=== PATIENT | female | born 1935 | race Caucasian/White ===

== ENCOUNTER 2016-12-18 08:39 | Outpatient (RCR) | payer MEDICARE ==
[~2016-12-18 08:39] MED LIST: ASPI-9 PO; COLC0.6T53 PO; POTA99TA21 PO
--- OUTSIDE RECORDS SUMMARY | 2016-12-18 08:47 | XMS REPORT | Continuity of Care Document ---
Author Author [facility] Organization [facility] Address Unknown Phone Unavailable Care Team Providers Care Can Runner Name Role Phone NO, LOCAL PHYSICIAN PCP Unavailable Insurance Providers Payer Name Policy Number Subscriber Name Relationship [employer] [id number] Barbara Richardson 18 Self / Same As Patient Advance Directives Directive Response Recorded Date/Time Advance Directives Yes 11/04/16 4:15pm Health Care Power of Steel Grinder Magdaleno GRANDE ABTS 11/04/16 4:15pm Organ Donor Yes 11/04/16 4:15pm Resuscitation Status DNR-Pt Request 11/04/16 4:15pm Chief Complaint and Reason for Visit Chief Complaint INFLAMMATORY ARTHRITIS Reason for Visit inflamatory arthritis knees Problems Active Problems Medical Problem Onset Date Status inflamatory arthritis knees Unknown Acute Medications Current Home Medications Medication Dose Units Route Directions Days/Qty Instructions Start Date Aspirin/Calcium Carbonate/Mag 325 Mg 325 Mg Oral Daily 11/04/16 Colchicine 0.6 Mg 0.6 Mg Oral Daily 6 11/07/16 Past Home Medications Medication Directions Ordered Status Potassium Gluconate 99 Mg Tablet, 99 Mg Oral Daily 11/06/16 Discontinued Social History Social History Problem Response Recorded Date/Time Alcohol Use Denies Use 11/04/2016 4:15pm Recreational Drug Use No 11/04/2016 4:15pm Recent Foreign Travel No 11/04/2016 4:15pm Recent Infectious Disease Exposure No 11/04/2016 4:15pm Hospitalization with Isolation Denies 11/07/2016 2:59pm Sexually Transmitted Disease No 11/04/2016 4:15pm HIV/AIDS No 11/04/2016 4:15pm Smoking Status Never a Smoker 11/04/2016 4:15pm Recent Hopitalizations No 11/04/2016 4:15pm Sexually Transmitted Disease No 11/04/2016 4:15pm Hospitalization with Isolation Denies 11/07/2016 2:59pm Query Response Start Date Stop Date Smoking Status Never a Smoker Hospital Discharge Instructions Patient Instructions Physician Instructions Patient Instructions/FollowUp: Home health nursing and physical therapy services Ambulate as tolerated Take the colchicine as directed Hematology will schedule you for a visit outpatient at the cancer clinic Patient Problems: Extensive degenerative arthritis/pseudogout bilateral knees Goal: Monitoring arthritis status Return to previous performance status at home [facility] [place], [place] DISCHARGE ORDERS Height (Feet): 5 Height (Inches): 2.00 Weight (Pounds): 143 Weight (Ounces): 5.0 Reason Pt Homebound Acute crystalline arthritis bilateral knees Date of Face to Face: Nov 07, 2016 Discharged To: Home Diagnosis/Conditions Order: Acute bilateral pseudogout knees Monocytosis *I certify that based on my findings, the following services are medically necessary Home Health Services: y Services: Nursing Services, Physical Therapy-Evaluate & Treat My clinical findings support the need for the above services; see Diagnosis. Dicharge Diet: No Restrictions Daily Activity as Tolerated: Yes Pneu Vac Indicated: Yes New, Converted, or Re-newed RX: Transmited to Pharmacy I certify that this patient is under my care and that I, a nurse practitioner or a physician; a office clerk assistant working with me, had a face to face encounter that - meets the physician face to face encounter requirements with this patient as dated. y Care Plan Patient Instructions:: Home health nursing and physical therapy servicesAmbulate as toleratedTake the colchicine as directedHematology will schedule you for a visit outpatient at the cancer clinic Goal:: Monitoring arthritis statusReturn to previous performance status at home Patient Problems: Extensive degenerative arthritis/pseudogout bilateral knees Plan of Care Discharge Date 11/07/16 1:25pm Disposition 06 HOME HEALTH SERVICE Instructions/Education Provided Gout (DC) Prescriptions See Medication Section Referrals (Unspecified) - Reason(s) for Referral: FOLLOW UP WITH DR HICKEY ON Nov AT 2PM. APPT AT 2:30PM [phone] Care Plan and Goals See Discharge Instructions Section Functional Status Query Response Date Recorded Patient Orientation Person Place Time Situation November 07, 2016 11:59am Patient Orientation Person Place Time Situation November 07, 2016 2:59pm Comprehension Ability Understands Concepts November 06, 2016 8:20pm Allergies, Adverse Reactions, Alerts Allergen Type Severity Reaction Status Last Updated Penicillins ([id number]) Allergy Severe HIVES Active 11/04/16 sulfamethoxazole ([id number]) Allergy Severe Active 11/04/16 Trimethoprim Allergy Severe Active 11/04/16 Immunizations Name Given Type FLU TRIvalent 5 years - Adult 11/05/16 Administered Vital Signs Acute Vital Signs Vital Response Date/Time Temperature (Fahrenheit) 98.7 degrees F (97.6 - 99.5) 11/07/2016 2:57pm Temperature (Calculated Celsius) 37.42209 degrees C (36.4 - 37.5) 11/07/2016 8:00am Temperature Source Tympanic 11/07/2016 2:57pm Pulse Rate (adult) 98 bpm (60 - 90) 11/07/2016 2:57pm Respiratory Rate 18 bpm (12 - 24) 11/07/2016 2:57pm O2 Sat by Pulse Oximetry 95 % (88 - 100) 11/07/2016 2:57pm Blood Pressure 150/74 mm Hg 11/07/2016 2:57pm Blood Pressure Mean 99 mm Hg 11/07/2016 8:00am Pain Numeric Pain Scale 0-No Pain 11/07/2016 2:57pm Height (Feet) 5 feet 11/04/2016 4:23pm Height (Inches) 2.00 inches 11/04/2016 4:23pm Height (Calculated Centimeters) 157.749735 cm 11/04/2016 4:23pm Weight (Pounds) 143 pounds 11/04/2016 4:23pm Weight (Ounces) 5.0 oz 11/04/2016 4:23pm Weight (Calculated Grams) 89329.457 gm 11/04/2016 4:23pm Weight (Calculated Kilograms) 65.193975 kilograms 11/04/2016 4:23pm Calculated BMI 26.2 11/04/2016 4:23pm Results Laboratory Results Test Name Result Units Flags Reference Collection Date/Time Result Date/ Time Comments White Blood Count 22.6 10^3/uL H 4.3-11.0 11/04/2016 6:32pm 11/04/2016 6: 43pm Red Blood Count 3.73 10^6/uL L 4.35-5.85 11/04/2016 6:32p 11/04/2016 6: 43pm Hemoglobin 10.9 G/DL L 11.5-16.0 11/04/2016 6:32p 11/04/2016 6:43pm Hematocrit 33 % L 35-52 11/04/2016 6:32p 11/04/2016 6:43pm Mean Corpuscular Volume 90 FL 80-99 11/04/2016 6:32p 11/04/2016 6: 43pm Mean Corpuscular Hemoglobin 29 PG 25-34 11/04/2016 6:32p 11/04/2016 6: 43pm Mean Corpuscular Hemoglobin Concent 33 G/DL 32-36 11/04/2016 6:32p 08/2016 6:43pm Red Cell Distribution Width 16.4 % H 10.0-14.5 11/04/2016 6:32p 2015 6:43pm Platelet Count 112 10^3/uL L 130-400 11/04/2016 6:32p 11/04/2016 6:43pm Mean Platelet Volume 13.0 FL H 7.4-10.4 11/04/2016 6:32p 11/04/2016 6: 43pm Eosinophils (%) (Auto) 0 % 0-10 11/04/2016 6:32p 11/04/2016 6:43pm Basophils (%) (Auto) 0 % 0-10 11/04/2016 6:32p 11/04/2016 6:43pm Eosinophils # (Auto) 0.0 10^3/uL 0.0-0.3 11/04/2016 6:32p 11/04/2016 6 :43pm Basophils # (Auto) 0.0 10^3/uL 0.0-0.1 11/04/2016 6:32pm 11/04/2016 6: 43pm Neutrophils % (Manual) 43 % 11/04/2016 6:32pm 11/04/2016 6:57pm Lymphocytes % (Manual) 13 % 11/04/2016 6:32pm 11/04/2016 6:57pm Monocytes % (Manual) 44 % 11/04/2016 6:32pm 11/04/2016 6:57pm Polychromasia SLIGHT 11/04/2016 6:32p 11/04/2016 6:57pm Hypochromasia MODERATE 11/04/2016 6:32pm 11/04/2016 6:57pm Basophilic Stippling SLIGHT 11/04/2016 6:32pm 11/04/2016 6:57pm Macrocytosis SLIGHT 11/04/2016 6:32pm 11/04/2016 6:57pm Elliptocytes SLIGHT 11/04/2016 6:32pm 11/04/2016 6:57pm Rouleau SLIGHT 11/04/2016 6:32pm 11/04/2016 6:57pm Body Fluid Source SYNOVIAL 11/05/2016 11:28am 11/05/2016 12:40pm Body Fluid Color YELLOW 11/05/2016 11:28am 11/05/2016 12:40pm Body Fluid Appearance CLOUDY AND VISCOUS 11/05/2016 11:28am 2015 12:40pm Body Fluid WBC [id number] /uL 11/05/2016 11:28am 11/05/2016 3:22pm Body Fluid RBC 750 /uL 11/05/2016 11:28am 11/05/2016 3:22pm Body Fluid Polynuclear WBCs 87 % 11/05/2016 11:28am 11/05/2016 3: 22pm Body Fluid Mononuclear WBCs 1 % 11/05/2016 11:28am 11/05/2016 3:22pm Body Fluid Lymphocytes 7 % 11/05/2016 11:28am 11/05/2016 3:22pm Body Fluid Other Cells 5 % 11/05/2016 11:28am 11/05/2016 3:22pm Body Fluid Crystals CA PYROPHOSPHATE 11/05/2016 11:28am 11/05/2016 12:40pm BODY FLUID SOURCE LEFT KNEE ASPIRATE. VERY FEW SMALL AND BLUNT CRYSTALS OBSERVED. URIC ACID CRYSTALS ARE FOUND IN GOUT. CALCIUM PYROPHOSPHATE DIHYDRATE CRYSTALS ARE FOUND IN PSEUDOGOUT. Anti-Double Strand DNA Antibody 92 IU/mL 0-300 11/04/2016 6:32pm 2015 7:52am ANTI DOUBLESTRANDED DNA-EIA Index Value Units Interpretation 0-200 IU/mL Normal 201-300 IU/mL Equivocal >/=301 IU/mL High Test performed at [facility], CLIA# [id number] [facility] [place] [address] Anti-DNA Antibody Interpretation SEE FOOTNOTE 11/04/2016 6:32pm 08/2016 6:38pm Microbiology Results Procedure Source Result Collection Date/Time Result Date/Time Anaerobic Culture Body Fluid, Synovial Fluid No growth 11/05/2016 11:40am 11/07/2016 2:01pm Body Fluid Culture Synovial Fluid No growth 11/05/2016 11:20am 11/06/2016 7:36am Anaerobic Culture Body Fluid, Synovial Fluid No growth 11/05/2016 11:20am 11/07/2016 2:00pm Procedures No known history of procedures. Encounters Encounter Location Arrival/Admit Date Discharge/Depart Date Attending Provider Discharged Inpatient (obs) [facility] 11/04/16 3:20pm 1:25pm JAMES PEDROZA MD Recent Diagnosis inflamatory arthritis knees
[2016-12-18 09:20] LABS: BASOPHILS % (AUTO) 0 % (0-10); EOSINOPHILS % (AUTO) 0 % (0-10); LYMPHOCYTES # (AUTO) 2.2 X 10^3 (1.0-4.0); LYMPHOCYTES % (AUTO) 44 % (12-44); MEAN CORPUSCULAR HEMOGLOBIN 29 PG (25-34); MEAN CORPUSCULAR HGB CONC 32 G/DL (32-36); MEAN CORPUSCULAR VOLUME 91 FL (80-99); MEAN PLATELET VOLUME 11.7 FL (7.4-10.4); MONOCYTES # (AUTO) 1.5 X 10^3 (0.0-1.0); MONOCYTES % (AUTO) 30 % (0-12); NEUTROPHILS # (AUTO) 1.3 X 10^3 (1.8-7.8); NEUTROPHILS % (AUTO) 26 % (42-75); PLATELET COUNT 124 10^3/uL (130-400); RED BLOOD COUNT 4.13 10^6/uL (4.35-5.85)
[2016-12-18 09:52] LABS: ALANINE AMINOTRANSFERASE 9 U/L (0-55); ALBUMIN 4.4 G/DL (3.2-4.5); ANION GAP 12 MMOL/L (5-14); ASPARTATE AMINO TRANSFERASE 17 U/L (5-34); BILIRUBIN,TOTAL 0.4 MG/DL (0.1-1.0); BLOOD UREA NITROGEN 12 MG/DL (7-18); BUN/CREATININE RATIO 18; CALCIUM 9.5 MG/DL (8.5-10.1); CARBON DIOXIDE 21 MMOL/L (21-32); CHLORIDE 107 MMOL/L (98-107); CREATININE SERUM 0.65 MG/DL (0.60-1.30); GFR ESTIMATED > 60; GLUCOSE 75 MG/DL (70-105); POTASSIUM 3.9 MMOL/L (3.6-5.0); SODIUM 140 MMOL/L (135-145); TOTAL PROTEIN 7.7 G/DL (6.4-8.2)
== END 2017-03-18 | disposition home or self-care (01) ==
LOC: ONC 08:39
PROVIDERS: ATTEND Internal Medicine Hematology & Oncology
DX: D72.829 Elevated white blood cell count, unspecified (principal); D69.6 Thrombocytopenia, unspecified; D64.9 Anemia, unspecified
CPT/HCPCS: 36415; 80053; 85025; 99214

== ENCOUNTER 2019-01-07 13:52 | Emergency (ER) | payer MEDICARE ==
[~2019-01-07] VITALS: Ht 154.9 cm; Wt 63.5 kg
[2019-01-07] MEDS ORDERED: TRAM50TA2 (14:19)
[2019-01-07] MEDS ORDERED: fentaNYL INJECTION 100 MCG/2 ML AMP IVP ONE (15:00)
[2019-01-07] MEDS ORDERED: ONDANSETRON 4 MG/2 ML (SDV) Z0FRAN IVP ONE (15:00)
--- NOTE | 2019-01-07 15:37 | ED Trauma-Multisystem ---
General Chief Complaint: Trauma-Non Activation Stated Complaint: FALL Nursing Triage Note: pt presents to ed with complaints of fall backwards on Sunday at her house. pt reprots she did not see anyone for the fall until today because she is not getting better. pt has hematoma to back of head and complains of back pain. pt reports she took a tramadol at 0730 this am, and has had nausea since. pt reports she has not had a bm x 2 days and took a laxitive last night but has not had any results. Source of Information: Patient, Family Exam Limitations: No Limitations History of Present Illness Date Seen by Provider: Jan 07, 2019 Time Seen by Provider: 14:49 Initial Comments 83-year-old female who is brought to the emergency room by her daughter for complaints of low back pain and hematoma to her scalp. She reports that 2 days ago she tripped while feeding her cat and fell backwards landing on her back and striking her head on the floor. She reports that she has had increasing pain in her low back and is not improving with pain. Location Injury Occurred: home residence Allergies and Home Medications Allergies Coded Allergies: Penicillins (Verified Allergy, Severe, HIVES, 11/04/16) sulfamethoxazole (Verified Allergy, Severe, 11/04/16) SEIZURE trimethoprim (Verified Allergy, Severe, 11/04/16) SEIZURE Past Lpwwnnl-Gpiooh-Fxazvd Hx Patient Social History Alcohol Use: Denies Use Recreational Drug Use: No Smoking Status: Never a Smoker Recent Foreign Travel: No Contact w/Someone Who Travel: No Recent Infectious Disease Expo: No Recent Hopitalizations: No Physical Abuse: No Sexual Abuse: No Mistreated: No Fear: No Immunizations Up To Date Tetanus Booster (TDap): Unknown PED Vaccines UTD: Yes Seasonal Allergies Seasonal Allergies: No Past Medical History Surgeries: Yes (back, ex lap, ) Appendectomy, Hysterectomy, Tubal Ligation Respiratory: No Currently Using CPAP: No Currently Using BIPAP: No Cardiac: Yes (DID NOT KNOW SHE HAD A VT-DR TOLD HER AFTER SOME TEST) Heart Attack Neurological: No Reproductive Disorders: No Female Reproductive Disorders: Denies Sexually Transmitted Disease: No HIV/AIDS: No Genitourinary: No Gastrointestinal: No Musculoskeletal: Yes (KNEE PAIN) Gout Endocrine: Yes Lupus Loss of Vision: Denies Hearing Impairment: Hard of Hearing Cancer: No Psychosocial: No Integumentary: No Blood Disorders: No Adverse Reaction/Blood Tranf: No Family Medical History Asthma 19 FATHER Diabetes mellitus 19 FATHER 19 MOTHER G8 SISTER Hypertension 19 MOTHER Myocardial infarction 19 FATHER ( AT 62 FROM [place]) Neoplasm 19 MOTHER (BREAST CANCER WITH MASTECTOMY) Physical Exam Vital Signs Vital Signs - First Documented 01/07/19 14:09 Temp 97.3 Pulse 93 Resp 16 B/P (MAP) 177/92 (120) Pulse Ox 93 Height, Weight, BMI Height: 5'1.00" Weight: 140lbs. 5.0oz. 63.877238hr; 26.2 BMI Method:Stated Progress/Results/Core Measures Results/Orders My Orders Orders - JOEY WILSON Ct Head Wo (01/07/19 14:49) Ct Lumbar Spine Wo (01/07/19 14:49) Fentanyl Injection (Sublimaze Injection (01/07/19 15:00) Ondansetron Injection (Zofran Injectio (01/07/19 15:00) Medications Given in ED Current Medications Medications Dose Ordered Sig/Iris Route Start Time Stop Time Status Last Admin Dose Admin Fentanyl Citrate 25 mcg ONCE ONCE IVP 01/07/19 15:00 01/07/19 15:01 DC 01/07/19 15:03 25 MCG Ondansetron HCl 4 mg ONCE ONCE IVP 01/07/19 15:00 01/07/19 15:01 DC 01/07/19 15:03 4 MG Vital Signs/I&O 01/07/19 14:09 Temp 97.3 Pulse 93 Resp 16 B/P (MAP) 177/92 (120) Pulse Ox 93 Blood Pressure Mean: 120 Departure Impression Primary Impression: Compression fracture of T12 vertebra Disposition: HOME, SELF-CARE Condition: Stable/Unchanged Departure-Patient Inst. Decision time for Depature: 16:38 Referrals: ODILON DURAN WEN-CHOU MD (PCP/Family) Primary Care Physician Patient Instructions: LOCAL PHYSICIAN LIST, Vertebral Compression Fracture (DC) Add. Discharge Instructions: Take medications as directed. Call tomorrow morning for an appointment time with an orthopedic surgeon or your primary care provider for further evaluation of your fractures. Return back to the emergency room for worsening symptoms or concerns as needed. All discharge instructions reviewed with patient and/or family. Voiced understanding. Scripts Hydrocodone Bit/Acetaminophen (Hydrocodone/Acetaminophen 5/325mg Tablet) 1 Tab Tab 1 EACH PO Q4-6HR PRN for PAIN-MODERATE MDD 10, #14 TAB Prov: JOEY WILSON 01/07/19 JOEY WILSON Jan 07, 2019 15:37
--- NOTE | 2019-01-07 15:51 | Diagnostic Imaging Report ---
PROCEDURE: CT head without contrast. TECHNIQUE: Multiple contiguous axial images were obtained through the brain without the use of intravenous contrast. INDICATION: Fall with head injury. FINDINGS: Ventricles and sulci are diffusely prominent; however, no hemorrhage is identified. There is no geographic low density seen to indicate territorial infarct. Calvarium is intact and the visualized paranasal sinuses are clear. IMPRESSION: Mild involutional findings of the brain without CT evidence of acute intracranial abnormality. Dictated by: Dictated on workstation # [id number]
--- NOTE | 2019-01-07 16:01 | Diagnostic Imaging Report ---
PROCEDURE: CT lumbar spine without contrast. TECHNIQUE: Multiple contiguous axial images were obtained through the lumbar spine without the use of intravenous contrast. Sagittal and coronal reformations were then performed. INDICATION: Fall, low back pain. COMPARISON: None. FINDINGS: There is an acute fracture along the inferior endplate of the T12 vertebral body. Irregularity along the superior endplate of T12 appears to be chronic. Acute fracture extend to the posterior cortex, with approximately 3 mm of retropulsion. There is approximately 30% height loss of the anterior T12 vertebral body. The remaining vertebral bodies in the lumbar spine appear normal with no height loss. There are marked degenerative changes at L1-L2 and L2-L3 and L5-S1. There is left convex curvature of the lumbar spine centered at L4, with leftward translation of L4 on L5. There is facet arthropathy in the lumbar spine, with degenerative changes at the interface of the L3-L4 interspinous processes. No bony fragments or hyperdense fluid collections are seen in the spinal canal. There is spinal canal narrowing at L2-L3 and L3-L4 on the right. There is moderate foraminal stenosis on the left at L5-S1. There is atrophy of the musculature about the lumbar spine. IMPRESSION: 1. Compression fracture along the inferior endplate of T12 with 3 mm of retropulsion. There is moderate height loss at T12. 2. 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 Dictated by: Dictated on workstation # [id number]
[2019-01-07] MEDS ORDERED: ACHD5005 PO (16:41)
[2019-01-07 17:02] VITALS: BP 164/86
== END 2019-01-07 16:54 | disposition home or self-care (01) ==
LOC: EDUNIT# 13:52 → ER 13:53
DX: S22.080A Wedge compression fracture of T11-T12 vertebra, initial encounter for closed fracture (principal); I25.2 Old myocardial infarction; M10.9 Gout, unspecified; M32.9 Systemic lupus erythematosus, unspecified; Z88.0 Allergy status to penicillin; Z88.2 Allergy status to sulfonamides; Z88.8 Allergy status to other drugs, medicaments and biological substances; Z82.49 Family history of ischemic heart disease and other diseases of the circulatory system; Z80.3 Family history of malignant neoplasm of breast; Z90.49 Acquired absence of other specified parts of digestive tract; Z90.710 Acquired absence of both cervix and uterus; Z98.51 Tubal ligation status; W01.198A Fall on same level from slipping, tripping and stumbling with subsequent striking against other object, initial encounter
CPT/HCPCS: 70450; 72131

== ENCOUNTER 2019-01-23 10:06 | Inpatient (IN) | payer MEDICARE ==
[~2019-01-23] VITALS: Ht 154.9 cm; Wt 59.4 kg
[~2019-01-23 10:06] MED LIST changes: +ACHD5005 PO; +TRAM50TA2
[2019-01-23 10:36] LABS: BASOPHILS % (AUTO) 0 % (0-10); EOSINOPHILS % (AUTO) 0 % (0-10); HEMATOCRIT 45 % (35-52); LYMPHOCYTES # (AUTO) 2.5 X 10^3 (1.0-4.0); LYMPHOCYTES % (AUTO) 13 % (12-44); MEAN CORPUSCULAR HEMOGLOBIN 24 PG (25-34); MEAN CORPUSCULAR HGB CONC 32 G/DL (32-36); MEAN CORPUSCULAR VOLUME 76 FL (80-99); MEAN PLATELET VOLUME 10.9 FL (7.4-10.4); MONOCYTES # (AUTO) 7.5 X 10^3 (0.0-1.0); MONOCYTES % (AUTO) 39 % (0-12); NEUTROPHILS # (AUTO) 9.2 X 10^3 (1.8-7.8); NEUTROPHILS % (AUTO) 48 % (42-75); PLATELET COUNT 400 10^3/uL (130-400); RED CELL DISTRIBUTION WIDTH 20.2 % (10.0-14.5); WHITE BLOOD COUNT 19.3 10^3/uL (4.3-11.0)
[2019-01-23 10:36] LABS: BILIRUBIN,URINE NEGATIVE (NEGATIVE); CLARITY,URINE SLIGHTLY CLOUDY; COLOR,URINE YELLOW; GLUCOSE, URINE (UA) NEGATIVE (NEGATIVE); KETONES,URINE 1+ (NEGATIVE); LEUKOCYTE ESTERASE ,URINE 3+ (NEGATIVE); NITRITE,URINE POSITIVE (NEGATIVE); PH,URINE 7 (5-9); PROTEIN,URINE 3+ (NEGATIVE); UROBILINOGEN,URINE NORMAL (NORMAL)
[2019-01-23 10:44] LABS: BACTERIA,URINE LARGE /HPF; RBC,URINE 0-2 /HPF; SQUAMOUS EPITHELIAL CELL,UR 0-2 /HPF; WBC,URINE >100 /HPF
[2019-01-23 10:57] LABS: ALANINE AMINOTRANSFERASE 14 U/L (0-55); ALKALINE PHOSPHATASE 140 U/L (40-136); BILIRUBIN,TOTAL 0.7 MG/DL (0.1-1.0); BUN/CREATININE RATIO 17; CALCIUM 10.1 MG/DL (8.5-10.1); CARBON DIOXIDE 23 MMOL/L (21-32); CHLORIDE 98 MMOL/L (98-107); CREATININE SERUM 0.69 MG/DL (0.60-1.30); GFR ESTIMATED > 60; GLUCOSE 116 MG/DL (70-105); MAGNESIUM 1.7 MG/DL (1.8-2.4); POTASSIUM 4.1 MMOL/L (3.6-5.0); SODIUM 134 MMOL/L (135-145); TOTAL PROTEIN 8.7 GM/DL (6.4-8.2)
[2019-01-23 11:09] LABS: ANISOCYTOSIS SLIGHT; BAND NEUTROPHILS 10 %; BASOPHILS % (MANUAL) 0 %; EOSINOPHILS % (MANUAL) 1 %; LYMPHOCYTES % (MANUAL) 13 %; MICROCYTOSIS SLIGHT; MONOCYTES % (MANUAL) 30 %; MYELOCYTES % 1 %; NEUTROPHILS % (MANUAL) 45 %
[2019-01-23] MEDS ORDERED: NS IV 1000 ML 1,000 ML IV ONE (11:16)
--- NOTE | 2019-01-23 11:22 | Diagnostic Imaging Report ---
EXAMINATION: Right ankle at 1052h. INDICATION: Fell ankle pain 3 views were obtained. There are no prior studies available for comparison. On the lateral view along the posterior aspect of the talus there is a small thin irregular calcific density. This could represent a minute avulsion fracture. No other fracture or acute bony abnormality is appreciated. The ankle mortise is not widened and the talar dome is smooth. There is a calcaneal spur. The soft tissues are generally unremarkable. IMPRESSION: 1. There is a question of a small avulsion fracture along the posterior aspect of the talus. Clinical follow up is recommended. 2. There is no acute bony abnormality is noted otherwise. Dictated by: Dictated on workstation # [id number]
--- NOTE | 2019-01-23 11:24 | Diagnostic Imaging Report ---
Pelvis at 1040 hours. INDICATION: Fell. A single AP view of the pelvis was obtained. There are no prior studies available for comparison. This exam is less than optimal as the patient is slightly rotated. FINDINGS: There is no fracture, dislocation or acute bony abnormality evident. There is at least moderate degenerative disease of both hip joints. There is mild symmetrical sclerosis of the sacroiliac joints. The soft tissues are unremarkable. There is a fair amount of gas in both large and small bowel. The amount of bowel gas present, however, is less than noted on the prior CT lumbar spine exam of 01/07/2019. IMPRESSION: There is no evidence for an acute bony abnormality. Dictated by: Dictated on workstation # [id number]
--- NOTE | 2019-01-23 11:28 | Diagnostic Imaging Report ---
INDICATION: Fall, pain. FINDINGS: Lateral view demonstrates small joint effusion. There is tricompartmental arthritic changes of the knee with chondrocalcinosis. Dislocation or fracture is not apparent. IMPRESSION: Joint effusion, arthritis, chondrocalcinosis and atherosclerosis. No appreciable fracture deformity. Dictated by: Dictated on workstation # [id number]
--- NOTE | 2019-01-23 11:59 | ED General ---
General Chief Complaint: General Problems/Pain Stated Complaint: L KNEE PAIN;R ANKLE PAIN Nursing Triage Note: pt brought in by [facility] ems with complaint of right ankle pain, left knee pain, and difficulty taking care of herself at home. pt fell a few weeks ago and was diagnosed with compression fraction in her back. Nursing Sepsis Screen: No Definite Risk Source of Information: Patient, EMS, Family, Old Records Exam Limitations: No Limitations History of Present Illness Date Seen by Provider: Jan 23, 2019 Time Seen by Provider: 10:07 Initial Comments Patient presents to emergency room via EMS with gradual decline since having a fall and compression fractures to her back a few weeks ago. She also complains of left knee pain and right ankle pain. Family is no longer able to support her needs at home as she cannot freely ambulate around the house. She was able to ambulate independently with a walker immediately after the fall but has progressively declined since then and has struggled significantly over the last few days. She is afebrile at this time. She had some significant constipation related to hydrocodone use but had some very large bowel movements over the last couple days. Allergies and Home Medications Allergies Coded Allergies: Penicillins (Verified Allergy, Severe, HIVES, 11/04/16) sulfamethoxazole (Verified Allergy, Severe, 11/04/16) SEIZURE trimethoprim (Verified Allergy, Severe, 11/04/16) SEIZURE Home Medications Hydrocodone Bit/Acetaminophen 1 Tab Tab, 1 EACH PO Q4-6HR PRN for PAIN-MODERATE Prescribed by: JOEY WILSON on 01/07/19 1641 Patient Home Medication List Home Medication List Reviewed: Yes Review of Systems Review of Systems Constitutional: see HPI, weakness EENTM: no symptoms reported Respiratory: no symptoms reported Cardiovascular: no symptoms reported Gastrointestinal: see HPI, constipation Genitourinary: frequency : No Musculoskeletal: see HPI Skin: no symptoms reported Psychiatric/Neurological: No Symptoms Reported Hematologic/Lymphatic: No Symptoms Reported Immunological/Allergic: no symptoms reported Past Itpfdoe-Swkbht-Mcmusw Hx Past Med/Social Hx: Reviewed and Corrections made Patient Social History Alcohol Use: Denies Use Recreational Drug Use: No Smoking Status: Never a Smoker Recent Foreign Travel: No Contact w/Someone Who Travel: No Recent Infectious Disease Expo: No Recent Hopitalizations: No Immunizations Up To Date Tetanus Booster (TDap): Unknown PED Vaccines UTD: Yes Seasonal Allergies Seasonal Allergies: No Past Medical History Surgeries: Yes (back, ex lap, ) Appendectomy, Hysterectomy, Tubal Ligation Respiratory: No Currently Using CPAP: No Currently Using BIPAP: No Cardiac: Yes (DID NOT KNOW SHE HAD A [place]-DR TOLD HER AFTER SOME TEST) Heart Attack Neurological: No : No Reproductive Disorders: No Female Reproductive Disorders: Denies Sexually Transmitted Disease: No HIV/AIDS: No Genitourinary: No Gastrointestinal: No Musculoskeletal: Yes (KNEE PAIN) Fractures (compression fractures), Gout Endocrine: Yes Lupus HEENT: No Loss of Vision: Denies Hearing Impairment: Hard of Hearing Cancer: No Psychosocial: No Integumentary: No Blood Disorders: No Adverse Reaction/Blood Tranf: No Family Medical History Asthma 19 FATHER Diabetes mellitus 19 FATHER 19 MOTHER G8 SISTER Hypertension 19 MOTHER Myocardial infarction 19 FATHER ( AT 62 FROM [place]) Neoplasm 19 MOTHER (BREAST CANCER WITH MASTECTOMY) Physical Exam Vital Signs Vital Signs - First Documented 01/23/19 10:10 Pulse 110 Resp 22 B/P (MAP) 180/120 (140) Pulse Ox 97 O2 Delivery Room Air Capillary Refill : Less Than 3 Seconds Height, Weight, BMI Height: 5'2.00" Weight: 135lbs. 0oz. 61.604321eq; 0.0 BMI Method:Stated General Appearance: No Apparent Distress, WD/WN HEENT: PERRL/EOMI, Normal ENT Inspection Neck: Normal Inspection Respiratory: Lungs Clear, Normal Breath Sounds, No Accessory Muscle Use, No Respiratory Distress Cardiovascular: Regular Rate, Rhythm, No Edema, No Murmur Gastrointestinal: Normal Bowel Sounds, Soft, Tenderness (suprapubic) Extremity: Normal Capillary Refill, No Pedal Edema, Other (tenderness over the left knee with a left knee effusion. 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 Norm as Tested Skin: Normal Color, Warm/Dry Focused Exam Lactate Level 01/23/19 11:50: Lactic Acid Level 1.42 Lactic Acid Level Laboratory Tests Test 01/23/19 11:50 Lactic Acid Level 1.42 MMOL/L (0.50-2.00) Progress/Results/Core Measures Suspected Sepsis Recent Fever Within 48 Hours: No Infection Criteria Present: None New/Unexplained Altered Menta: No Sepsis Screen: No Definite Risk SIRS Temperature: Pulse: 110 Respiratory Rate: 22 Laboratory Tests 01/23/19 10:30: White Blood Count 19.3H Blood Pressure 180 /120 Mean: 140 01/23/19 11:50: Lactic Acid Level 1.42 Laboratory Tests 01/23/19 10:30: Creatinine 0.69, Platelet Count 400, Total Bilirubin 0.7 Results/Orders Lab Results Laboratory Tests Test 01/23/19 10:25 01/23/19 10:30 01/23/19 11:50 Range/Units Urine Color YELLOW Urine Clarity SLIGHTLY CLOUDY Urine pH 7 5-9 Urine Specific [place] 1.010 L 1.016-1.022 Urine Protein 3+ H NEGATIVE Urine Glucose (UA) NEGATIVE NEGATIVE Urine Ketones 1+ H NEGATIVE Urine Nitrite POSITIVE H NEGATIVE Urine Bilirubin NEGATIVE NEGATIVE Urine Urobilinogen NORMAL NORMAL MG/DL Urine Leukocyte Esterase 3+ H NEGATIVE Urine RBC (Auto) 3+ H NEGATIVE Urine RBC 0-2 /HPF Urine WBC >100 H /HPF Urine Squamous Epithelial Cells 0-2 /HPF Urine Crystals NONE /LPF Urine Bacteria LARGE H /HPF Urine Casts NONE /LPF Urine Mucus NEGATIVE /LPF Urine Culture Indicated YES White Blood Count 19.3 H 4.3-11.0 10^3/uL Red Blood Count 5.87 H 4.35-5.85 10^6/uL Hemoglobin 14.0 11.5-16.0 G/DL Hematocrit 45 35-52 % Mean Corpuscular Volume 76 L 80-99 FL Mean Corpuscular Hemoglobin 24 L 25-34 PG Mean Corpuscular Hemoglobin Concent 32 32-36 G/DL Red Cell Distribution Width 20.2 H 10.0-14.5 % Platelet Count 400 130-400 10^3/uL Mean Platelet Volume 10.9 H 7.4-10.4 FL Neutrophils (%) (Auto) 48 42-75 % Lymphocytes (%) (Auto) 13 12-44 % Monocytes (%) (Auto) 39 H 0-12 % Eosinophils (%) (Auto) 0 0-10 % Basophils (%) (Auto) 0 0-10 % Neutrophils # (Auto) 9.2 H 1.8-7.8 X 10^3 Lymphocytes # (Auto) 2.5 1.0-4.0 X 10^3 Monocytes # (Auto) 7.5 H 0.0-1.0 X 10^3 Eosinophils # (Auto) 0.0 0.0-0.3 10^3/uL Basophils # (Auto) 0.0 0.0-0.1 10^3/uL Neutrophils % (Manual) 45 % Lymphocytes % (Manual) 13 % Monocytes % (Manual) 30 % Eosinophils % (Manual) 1 % Basophils % (Manual) 0 % Myelocytes % 1 % Band Neutrophils 10 % Anisocytosis SLIGHT Microcytosis SLIGHT Sodium Level 134 L 135-145 MMOL/L Potassium Level 4.1 3.6-5.0 MMOL/L Chloride Level 98 98-107 MMOL/L Carbon Dioxide Level 23 21-32 MMOL/L Anion Gap 13 5-14 MMOL/L Blood Urea Nitrogen 12 7-18 MG/DL Creatinine 0.69 0.60-1.30 MG/DL Estimat Glomerular Filtration Rate > 60 BUN/Creatinine Ratio 17 Glucose Level 116 H 70-105 MG/DL Calcium Level 10.1 8.5-10.1 MG/DL Corrected Calcium 10.1 8.5-10.1 MG/DL Magnesium Level 1.7 L 1.8-2.4 MG/DL Total Bilirubin 0.7 0.1-1.0 MG/DL Aspartate Amino Transf (AST/SGOT) 25 5-34 U/L Alanine Aminotransferase (ALT/SGPT) 14 0-55 U/L Alkaline Phosphatase 140 H 40-136 U/L Total Protein 8.7 H 6.4-8.2 GM/DL Albumin 4.0 3.2-4.5 GM/DL Lactic Acid Level 1.42 0.50-2.00 MMOL/L My Orders Orders - CHIO JAIMES MD Cbc With Automated Diff (01/23/19 10:19) Comprehensive Metabolic Panel (01/23/19 10:19) Magnesium (01/23/19 10:19) Knee, Left, 3 Views (01/23/19 10:19) Ankle, Right, 3 Views (01/23/19 10:19) Saline Lock/Iv-Start (01/23/19 10:19) Ua Culture If Indicated (01/23/19 10:19) Pelvis (01/23/19 10:21) Manual Differential (01/23/19 10:30) Urine Culture (01/23/19 10:25) Saline Lock/Iv-Start (01/23/19 11:16) Ns Iv 1000 Ml (Sodium Chloride 0.9%) (01/23/19 11:16) Blood Culture (01/23/19 11:17) Lactic Acid Analyzer (01/23/19 11:17) Acetaminophen Tablet/Caplet (Tylenol T (01/23/19 12:30) Ceftriaxone For Iv Use (Rocephin For I (01/23/19 12:45) Medications Given in ED Current Medications Medications Dose Ordered Sig/Iris Route Start Time Stop Time Status Last Admin Dose Admin Sodium Chloride 1,000 ml @ 0 mls/hr Q0M ONCE IV 01/23/19 11:16 01/23/19 11:17 DC 01/23/19 11:31 1,000 MLS/HR Vital Signs/I&O 01/23/19 10:10 Pulse 110 Resp 22 B/P (MAP) 180/120 (140) Pulse Ox 97 O2 Delivery Room Air Capillary Refill : Less Than 3 Seconds Blood Pressure Mean: 140 Progress Note : Time: 11:58 Progress Note No significant fractures were found on imaging. There was a questionable avulsion fracture on the right ankle. However, this is a fracture that I do not believe would limit weightbearing. I do not feel patient would tolerate a splint or boot well at this point. Until she is more active, we will simply wrap with an Merritt bandage as needed. Patient was found to have a severe urinary tract infection. She meets sepsis criteria with leukocytosis and tachycardia. 1 L of IV fluid was ordered. Blood cultures and lactic acid were ordered along with a gram of Rocephin. Case was reviewed with Dr. Beckford who agrees with admission. Patient will likely need custodial placement after this admission due to her generalized decline. Social work will be consulted. Diagnostic Imaging Diagonstic Imaging: Xray Plain Films/CT/US/NM/MRI: knee Comments Left knee x-ray viewed by me and report reviewed. See report below: NAME: BART RICHARDSON MED REC#: [id number] PT STATUS: REG ER : 1935 PHYSICIAN: CHIO JAIMES MD ADMIT DATE: 01/23/19/ER Draft Date of Exam:01/23/19 KNEE, LEFT, 3 VIEWS INDICATION: Fall, pain. FINDINGS: Lateral view demonstrates small joint effusion. There is tricompartmental arthritic changes of the knee with chondrocalcinosis. Dislocation or fracture is not apparent. IMPRESSION: Joint effusion, arthritis, chondrocalcinosis and atherosclerosis. No appreciable fracture deformity. Dictated on workstation # [id number] Dict: 01/23/19 1109 Trans: 01/23/19 1127 [id number] Interpreted by: VI ORTIZ Diagonstic Imaging: Xray Plain Films/CT/US/NM/MRI: ankle Comments Right ankle x-ray viewed by me and report reviewed. See report below: NAME: BART RICHARDSON MED REC#: [id number] PT STATUS: REG ER : 1935 PHYSICIAN: CHIO JAIMES MD ADMIT DATE: 01/23/19/ER Draft Date of Exam:01/23/19 ANKLE, RIGHT, 3 VIEWS EXAMINATION: Right ankle at 1052h. INDICATION: Fell ankle pain 3 views were obtained. There are no prior studies available for comparison. On the lateral view along the posterior aspect of the talus there is a small thin irregular calcific density. This could represent a minute avulsion fracture. No other fracture or acute bony abnormality is appreciated. The ankle mortise is not widened and the talar dome is smooth. There is a calcaneal spur. The soft tissues are generally unremarkable. IMPRESSION: There is a question of a small avulsion fracture along the posterior aspect of the talus. Clinical follow up is recommended. 2. There is no acute bony abnormality is noted otherwise. Dictated on workstation # [id number] Dict: 01/23/19 1104 Trans: 01/23/19 1122 [facility] [id number] Interpreted by: ERIN CHAN MD Diagonstic Imaging: Xray Plain Films/CT/US/NM/MRI: pelvis Comments Pelvis x-ray viewed by me and report reviewed. See report below: NAME: BART RICHARDSON MED REC#: [id number] PT STATUS: REG ER : 1935 PHYSICIAN: CHIO JAIMES MD ADMIT DATE: 01/23/19/ER Draft Date of Exam:01/23/19 PELVIS Pelvis at 1040 hours. INDICATION: Fell. A single AP view of the pelvis was obtained. There are no prior studies available for comparison. This exam is less than optimal as the patient is slightly rotated. FINDINGS: There is no fracture, dislocation or acute bony abnormality evident. There is at least moderate degenerative disease of both hip joints. There is mild symmetrical sclerosis of the sacroiliac joints. The soft tissues are unremarkable. There is a fair amount of gas in both large and small bowel. The amount of bowel gas present, however, is less than noted on the prior CT lumbar spine exam of 01/07/2019. IMPRESSION: There is no evidence for an acute bony abnormality. Dictated on workstation # [id number] Dict: 01/23/19 1107 Trans: 01/23/19 1123 [id number] Interpreted by: ERIN CHAN MD Departure Communication (Admissions) Time/Spoke to Admitting Phy: 11:[address] Beckford Impression Primary Impression: Sepsis Qualified Codes: A41.9 - Sepsis, unspecified organism Additional Impressions: Urinary tract infection Qualified Codes: N39.0 - Urinary tract infection, site not specified Generalized weakness Right ankle injury Qualified Codes: S99.911A - Unspecified injury of right ankle, initial encounter Left knee pain Qualified Codes: M25.562 - Pain in left knee Disposition: 01 HOME, SELF-CARE Condition: Improved Admissions Decision to Admit Reason: Admit from ER (General) Decision to Admit/Date: Jan 23, 2019 Time/Decision to Admit Time: 11:15 Departure-Patient Inst. Referrals: SHIV NESBITT MD (PCP/Family) Primary Care Physician CHIO JAIMES MD Jan 23, 2019 11:59
[2019-01-23] MEDS ORDERED: ACETAMINOPHEN 325 MG TABLET PO ONE (12:30)
[2019-01-23] MEDS ORDERED: cefTRIAXone FOR IV USE 1,000 MG in WATER (STERILE) FOR INJECTION 10 ML IV ONE (12:45)
--- NOTE | 2019-01-23 13:15 | NUR ---
BART RICHARDSON admitted to room 426-1, with an admitting diagnosis of UTI, on 01/23/19 from ed via CART, accompanied by STAFF AND DAUGHTERS.BART RICHARDSON introduced to surroundings, call light, bed controls, phone, TV, temperature control, lights, meal times, smoking policy, visitor policy, side rail policy, bathrooms and showers. Patient Rights given to patient in the handbook. BART RICHARDSON verbalizes understanding that [facility] is not responsible for the loss or damage to any personal effects or valuables that are kept in the patients posession during their hospitalization. The following Patient Care Plans were discussed with the : Discharge Planning, PAIN CONTROL,IV FLUIDS, and TESTS AND PROCEDURES. BART RICHARDSON verbalizes understanding of Interdisciplinary Patient Education. Patient and/or family were informed about the Rapid Response Team and its purpose.
[2019-01-23] MEDS: NS IV 1000 ML 1,000 ML IV SCH ×2 (14:09→22:29)
[2019-01-23] MEDS ORDERED: POTA99TA21 PO (14:25)
[2019-01-23] MEDS ORDERED: DOCU-143 PO (14:25)
[2019-01-23] MEDS ORDERED: MAGN400T39 PO (14:25)
[2019-01-23] MEDS ORDERED: TRAM50TA2 PO (14:27)
--- NOTE | 2019-01-23 14:27 | NUR ---
SPOKE WITH THE PATIENT ABOUT HER MEDICATIONS. SHE STATES SHE IS NO LONGER TAKING THE HYDROCODONE, SHE DOES HAVE SOME TRAMADOL ON HAND FROM PREVIOUS FILLS SHE TAKES NEEDED BUT NOT OFTEN. TAKES POTASSIUM, MAGNESIUM, AND A STOOL SOFTENER OTC DAILY.
[2019-01-23] MEDS ORDERED: FLU QUADRIvalent (5+ YOA) 2018-2019 (AFLURIA) 0.5 ML IM ONE (14:30)
--- NOTE | 2019-01-23 14:57 | Physical Therapy Progress Note ---
Therapy Progress Note 1 visit 1440 PT began to assess Pt LEs of patella position and pt had uncontrolled pain with palpation of LLE patella. PT notified Dr. Beckford for further examination. Physical therapy will assess patient tomorrow morning. DERICK REDDING PT Jan 23, 2019 14:57
--- NOTE | 2019-01-23 15:13 | History & Physical-Hospitalist ---
History of Present Illness HPI/Chief Complaint Pt is an 83yoCF with a PMH lupus, CAD, and chronic back pain who presented to the ER with a CC of back pain, knee pain, and weakness. She was seen in the ER on 01/07 after a fall and was found to have a T12 compression fracture. She was discharged home and did relatively well ambulating with a walker until 3 days ago when her mobility worsened. Today she was unable to get out of bed so her daughter called EMS to bring her to the ER for evaluation. She was found to have a UTI and meet sepsis criteria and was admitted for further management. She complains of severe knee pain as well. Source: patient, family Exam Limitations: no limitations Date Seen 01/23/19 Time Seen by a Provider: 16:05 Attending Physician Meagan Beckford MD PCP Nickolas Castillo MD Referring Physician Date of Admission Jan 23, 2019 at 12:07 Home Medications & Allergies Home Medications Reviewed patient Home Medication Reconciliation performed by pharmacy medication reconciliations respiratory therapy technician and/or nursing. Patients Allergies have been reviewed. Allergies Allergies Coded Allergies Penicillins (Verified Allergy, Severe, HIVES, 11/04/16) sulfamethoxazole (Verified Allergy, Severe, 11/04/16) SEIZURE trimethoprim (Verified Allergy, Severe, 11/04/16) SEIZURE Past Uqzwqtl-Jkfqmm-Mdukvq Hx Past Med/Social Hx: Reviewed and Corrections made Patient Social History Alcohol Use: Denies Use Recreational Drug Use: No Smoking Status: Never a Smoker Physical Abuse Screen: No Sexual Abuse: No Recent Foreign Travel: No Contact w/other who traveled: No Recent Hopitalizations: No Recent Infectious Disease Expo: No Immunizations Up To Date Tetanus Booster (TDap): Unknown Pediatric: Yes Seasonal Allergies Seasonal Allergies: Yes Past Medical History Surgeries: Appendectomy, Hysterectomy, Tubal Ligation Currently Using CPAP: No Currently Using BIPAP: No Cardiac: Heart Attack : No Reproductive: No Sexually Transmitted Disease: No HIV/AIDS: No Female Reproductive Disorders: Denies Musculoskeletal: Osteoporosis, Arthritis, Back Injury, Chronic Back Pain, Fractures, Gout Endocrine: Lupus Loss of Vision: Denies Hearing Impairment: Hard of Hearing History of Blood Disorders: No Adverse Reaction to Blood [place]: No Family History Asthma 19 FATHER Diabetes mellitus 19 FATHER 19 MOTHER G8 SISTER Hypertension 19 MOTHER Myocardial infarction 19 FATHER ( AT 62 FROM [place]) Neoplasm 19 MOTHER (BREAST CANCER WITH MASTECTOMY) Review of Systems Constitutional: No chills, No fever EENTM: no symptoms reported Respiratory: no symptoms reported Cardiovascular: no symptoms reported Gastrointestinal: no symptoms reported Genitourinary: dysuria, frequency Musculoskeletal: joint pain Skin: no symptoms reported Psychiatric/Neurological: Denies Paresthesia; Weakness Physical Exam Physical Exam Vital Signs Vital Signs - First Documented 01/23/19 01/23/19 10:10 17:07 Temp 98.2 Pulse 110 Resp 22 B/P (MAP) 180/120 (140) Pulse Ox 97 O2 Delivery Room Air Capillary Refill : Less Than 3 Seconds Height, Weight, BMI Height: 5'2.00" Weight: 135lbs. 0oz. 61.388193tz; 0.0 BMI Method:Stated General Appearance: No Apparent Distress, Chronically ill Respiratory: Lungs Clear, No Accessory Muscle Use, No Respiratory Distress Cardiovascular: Regular Rate, Rhythm, No JVD, No Murmur Gastrointestinal: Normal Bowel Sounds, Non Tender, Soft Genital/Rectal: Other (catheter in place) Extremity: Other (swelling withour erythema around left knee, patella laterally and anteriorly displaced, attempted to move but patient unable to tolerate due to pain) Neurologic/Psychiatric: Alert, Oriented x3 Skin: Normal Color, Warm/Dry Results Results/Procedures Labs Laboratory Tests 01/23/19 10:30 Patient resulted labs reviewed. Imaging: Reviewed Imaging Report Assessment/Plan Admission Diagnosis Sepsis Admission Status: Inpatient Order (span 2 midnights) Reason for Inpatient Admission: IV abx, orhto evaluation of knee Diagnosis/Problems Diagnosis/Problems (1) Sepsis Status: Acute Assessment & Plan: Tachycardia with tachypnea and leukocytosis UA consistent with UTI Continue Rocephin Cultures obtained in ER No lactic acidosis or hypotension- no need for 30cc/kg bolus Qualifiers: Sepsis type: sepsis due to unspecified organism Qualified Codes: A41.9 - Sepsis, unspecified organism (2) Urinary tract infection Status: Acute Assessment & Plan: Abx as above Await cultures Qualifiers: Urinary tract infection type: site unspecified Hematuria presence: without hematuria Qualified Codes: N39.0 - Urinary tract infection, site not specified (3) Left knee pain Status: Acute Assessment & Plan: XR revealed effusions PT expressed concern about patellar dislocation Unable to tolerate much of exam from me but patella displaced Ortho consulted, appreciate recs Discussed with Dr Kate who will see in consultation and recommended MRI of knee MRI Ordered Qualifiers: Chronicity: acute Qualified Codes: M25.562 - Pain in left knee (4) Generalized weakness Status: Acute Assessment & Plan: PT/OT consulted Clinical Quality Measures DVT/VTE Risk/Contraindication: Risk Factor Score Per Nursin RFS Level Per Nursing on Admit: 4+=Very High MEAGAN BECKFORD MD Jan 23, 2019 15:13
--- NOTE | 2019-01-23 15:33 | NUR ---
Met with pt and two daughters after they requested to talk with a licensed master social worker as Dulce one of the daughters is a retired school of nursing director. Daughter reports pt fell about 3 weeks ago and was seen at our Emergency room on the and after her injury was ambulating Ok . Daughter has been staying with her for two weeks and reports her mother has gradually declined to the point that 3 days ago was unable to walk, was reporting inaccurate information with change in mental status,and unable to provide her own care. Daughters are wanting to look at continuing care options as neither daughter is able to provide her 24 hour care. Will follow and assist.
[2019-01-23 17:07] VITALS: BP 142/77
[2019-01-23 19:23] VITALS: BP 158/75
[2019-01-23] MEDS: LACTOBACILLUS ACIDOPHILUS (PROBIOTIC) CAPSULE PO SCH (19:25)
[2019-01-23 19:30] VITALS: BP 165/85
--- NOTE | 2019-01-23 19:38 | NUR ---
DAUGHTER REFUSES SCD' FOR HER MOTHER. DAUGHTER ( DPOA ) ( CHRISTIANE ) STATES HER MOTHER CAN NOT STAND ANYTHING ON HER LEGS.
--- NOTE | 2019-01-23 19:39 | NUR ---
REFUSES A BRACE TO HER LEFT LEG. PT. STATES " IT HURTS WHEN YOU BARELY TOUCH IT. I CAN'T STAND SOMETHING TIGHT ON IT."
[2019-01-24] VITALS (7 sets, daily range): BP systolic 152–177; BP diastolic 72–84
[2019-01-24] MEDS: NS IV 1000 ML 1,000 ML IV SCH ×2 (06:27→21:15)
--- NOTE | 2019-01-24 07:04 | Consultation ---
History of Present Illness History of Present Illness Patient Consulted On(jonathan/time) 01/24/19 07:00 Date Seen by Provider: Jan 24, 2019 Time Seen by Provider: 07:00 Reason for Visit: L knee pain History of Present Illness 83 yr old WF with 4 days of inability to WB LLE. Denies trauma. Denies radiaiton of the pain, which is located mostly over the anterior knee. she has extreme pain with ROM and even light touch. denies fevers chills. denies hx of surgery to the knee Allergies and Home Medications Allergies Coded Allergies: Penicillins (Verified Allergy, Severe, HIVES, 11/04/16) sulfamethoxazole (Verified Allergy, Severe, 11/04/16) SEIZURE trimethoprim (Verified Allergy, Severe, 11/04/16) SEIZURE Home Medications Docusate Sodium 100 Mg Capsule, 100 MG PO DAILY, (Reported) Magnesium Oxide 400 Mg Tablet, 400 MG PO DAILY, (Reported) Potassium Gluconate 99 Mg Tablet, 99 MG PO DAILY, (Reported) Tramadol HCl 50 Mg Tablet, 25 MG PO Q6H PRN for PAIN-MODERATE, (Reported) Patient Home Medication List Home Medication List Reviewed: Yes Past Aruokdm-Otbntj-Olmweu Hx Past Med/Social Hx: Reviewed and Corrections made Patient Social History Alcohol Use: Denies Use Recreational Drug Use: No Smoking Status: Never a Smoker Recent Foreign Travel: No Contact w/Someone Who Travel: No Recent Infectious Disease Expo: No Recent Hopitalizations: No Immunizations Up To Date Tetanus Booster (TDap): Unknown PED Vaccines UTD: Yes Seasonal Allergies Seasonal Allergies: Yes Past Medical History Surgeries: Yes Appendectomy, Hysterectomy, Tubal Ligation Respiratory: No Currently Using CPAP: No Currently Using BIPAP: No Cardiac: Yes (WAS TOLD THIS 2016 ( SHE DIDN'T KNOW ABOUT IT )) Heart Attack Neurological: No : No Reproductive Disorders: No Female Reproductive Disorders: Denies Sexually Transmitted Disease: No HIV/AIDS: No Genitourinary: No Gastrointestinal: No Musculoskeletal: Yes (KNEE PAIN) Osteoporosis, Arthritis, Back Injury, Chronic Back Pain, Fractures, Gout Endocrine: Yes Lupus HEENT: No Loss of Vision: Denies Hearing Impairment: Hard of Hearing Cancer: No Psychosocial: No Integumentary: Yes (RASHES FROM LUPUS) Blood Disorders: No Adverse Reaction/Blood Tranf: No Family Medical History Asthma 19 FATHER Diabetes mellitus 19 FATHER 19 MOTHER G8 SISTER Hypertension 19 MOTHER Myocardial infarction 19 FATHER ( AT 62 FROM [place]) Neoplasm 19 MOTHER (BREAST CANCER WITH MASTECTOMY) Physical Exam-General Problems Physical Exam Vital Signs Vital Signs - First Documented 01/23/19 01/23/19 10:10 17:07 Temp 98.2 Pulse 110 Resp 22 B/P (MAP) 180/120 (140) Pulse Ox 97 O2 Delivery Room Air Capillary Refill : Less Than 3 SecondsLess Than 3 Seconds General Appearance: no apparent distress Extremities: other (L knee: severe pain with ROM, pain with light touch, SILT all dermatomes, no erythema, +warmth, 2/4 DP, PT) Assessment/Plan Assessment/Plan Admission Diagnosis/Plan ASSESSMENT: L knee pain PLAN: need MRI for further eval (this was ordered yesterday) need L Knee brace (this was ordered yesterday) NWB for now DVT prophy per medicine CT LLE to r/o occult fracture ice on/off L knee Admission Status: Inpatient Order (span 2 midnights) Reason for Inpatient Admission: Knee pain, sepsis Clinical Quality Measures DVT/VTE Risk/Contraindication: Risk Factor Score Per Nursin RFS Level Per Nursing on Admit: 4+=Very High ODILON DURAN DO Jan 24, 2019 07:04
[2019-01-24] MEDS: LACTOBACILLUS ACIDOPHILUS (PROBIOTIC) CAPSULE PO SCH ×3 (07:34→17:28)
[2019-01-24] MEDS: ACETAMINOPHEN 325 MG TABLET PO PRN (08:35)
--- NOTE | 2019-01-24 09:25 | Progress Note-Hospitalist ---
Subjective HPI/CC On Admission Date Seen by Provider: Jan 24, 2019 Time Seen by Provider: 09:20 Pt is an 83yoCF with a PMH lupus, CAD, and chronic back pain who presented to the ER with a CC of back pain, knee pain, and weakness. She was seen in the ER on 01/07 after a fall and was found to have a T12 compression fracture. She was discharged home and did relatively well ambulating with a walker until 3 days ago when her mobility worsened. Today she was unable to get out of bed so her daughter called EMS to bring her to the ER for evaluation. She was found to have a UTI and meet sepsis criteria and was admitted for further management. She complains of severe knee pain as well. Subjective/Events-last exam Daughter at bedside. Pt more confused overnight and today. Febrile as well. Complains of aches and pains all over. Asking to go home but also cannot hardly tolerate position changes in bed and cannot ambulate. Focused Exam Lactate Level 01/23/19 11:50: Lactic Acid Level 1.42 Objective Exam Vital Signs Vital Signs Date Time Temp Pulse Resp B/P (MAP) Pulse Ox O2 Delivery O2 Flow Rate FiO2 01/24/19 08:35 101.4 01/24/19 08:00 99 18 173/84 (113) 97 Room Air Capillary Refill : Less Than 3 SecondsLess Than 3 Seconds General Appearance: No Apparent Distress, Chronically ill Respiratory: Lungs Clear, No Accessory Muscle Use, No Respiratory Distress Cardiovascular: Regular Rate, Rhythm, No JVD, No Murmur Gastrointestinal: Normal Bowel Sounds, Non Tender, Soft Genital/Rectal: Other (catheter in place) Extremity: Other (swelling without erythema around left knee, patella remains laterally and anteriorly displaced, pt did not tolerate maipulation of knee) Neurologic/Psychiatric: Alert, Disoriented Skin: Normal Color, Warm/Dry Results/Procedures Lab Laboratory Tests 01/23/19 10:30 Patient resulted labs reviewed. Imaging: Reviewed Imaging Report Assessment/Plan Assessment and Plan Assess & Plan/Chief Complaint Sepsis Diagnosis/Problems Diagnosis/Problems (1) Sepsis Status: Acute Assessment & Plan: Tachycardia with tachypnea and leukocytosis UA consistent with UTI Continue Rocephin Await cultures Remains febrile- will check for flu Qualifiers: Sepsis type: sepsis due to unspecified organism Qualified Codes: A41.9 - Sepsis, unspecified organism (2) Urinary tract infection Status: Acute Assessment & Plan: Abx as above Await cultures Qualifiers: Urinary tract infection type: site unspecified Hematuria presence: without hematuria Qualified Codes: N39.0 - Urinary tract infection, site not specified (3) Left knee pain Status: Acute Assessment & Plan: XR revealed effusions PT expressed concern about patellar dislocation Unable to tolerate much of exam from me still Ortho consulted, appreciate recs MRI and CT ordered Knee brace ordered but patient declines due to pain Qualifiers: Chronicity: acute Qualified Codes: M25.562 - Pain in left knee (4) Generalized weakness Status: Acute Assessment & Plan: PT/OT consulted Clinical Quality Measures DVT/VTE Risk/Contraindication: Risk Factor Score Per Nursin RFS Level Per Nursing on Admit: 4+=Very High MEAGAN PATRICK MD Jan 24, 2019 09:25
--- NOTE | 2019-01-24 09:31 | NUR ---
Family discussed the option of Skilled care as a possible option for pt's care. They gave [facility] as their first choice and wanted to find out if they were in network and had available bed. According to their Physical Education Teacher their facility is in network but requires prior authorization. will chris and juancho.
[2019-01-24 10:07] LABS: BASOPHILS % (AUTO) 0 % (0-10); EOSINOPHILS % (AUTO) 0 % (0-10); HEMATOCRIT 39 % (35-52); HEMOGLOBIN 12.5 G/DL (11.5-16.0); LYMPHOCYTES % (AUTO) 8 % (12-44); MEAN CORPUSCULAR HEMOGLOBIN 24 PG (25-34); MEAN CORPUSCULAR HGB CONC 32 G/DL (32-36); MEAN CORPUSCULAR VOLUME 76 FL (80-99); MEAN PLATELET VOLUME 11.3 FL (7.4-10.4); MONOCYTES % (AUTO) 34 % (0-12); NEUTROPHILS # (AUTO) 13.6 X 10^3 (1.8-7.8); NEUTROPHILS % (AUTO) 58 % (42-75); PLATELET COUNT 320 10^3/uL (130-400); RED CELL DISTRIBUTION WIDTH 19.5 % (10.0-14.5); WHITE BLOOD COUNT 23.7 10^3/uL (4.3-11.0)
[2019-01-24 10:26] LABS: BUN/CREATININE RATIO 11; CALCIUM 8.5 MG/DL (8.5-10.1); CARBON DIOXIDE 17 MMOL/L (21-32); CHLORIDE 103 MMOL/L (98-107); CREATININE SERUM 0.53 MG/DL (0.60-1.30); GFR ESTIMATED > 60; GLUCOSE 93 MG/DL (70-105); POTASSIUM 3.4 MMOL/L (3.6-5.0); SODIUM 132 MMOL/L (135-145)
[2019-01-24] MEDS: fentaNYL INJECTION 100 MCG/2 ML AMP IVP PRN ×2 (11:06→13:14)
--- NOTE | 2019-01-24 12:30 | Diagnostic Imaging Report ---
PROCEDURE: CT left lower extremity without contrast. TECHNIQUE: Multiple contiguous axial images were obtained through the left lower extremity without the use of intravenous contrast. Sagittal and coronal reformations were then performed. INDICATION: Left knee pain. COMPARISON: Radiographs from 01/23/2019. FINDINGS: No acute fracture is seen in the left knee. There are tricompartmental degenerative changes in the left knee which are severe in the medial compartment and [id number] in the lateral and patellofemoral compartments. There is a large left knee joint effusion. There is chondrocalcinosis in the left knee. There is a moderate-sized Wells's cyst. Alignment appears normal. The ligaments and menisci are not well evaluated by CT. There is calcific atherosclerosis. No focal muscular atrophy is seen. There is mild deep soft tissue edema posterior to the distal femur. IMPRESSION: 1. No acute fracture is seen in the left knee. 2. Advanced tricompartmental degenerative changes in the left knee with a large left knee joint effusion. 3. Moderate-sized Wells's cyst. Dictated by: Dictated on workstation # [id number]
[2019-01-24] MEDS: cefTRIAXone 1,000 MG/SWFI 10 ML IV PUSH IV SCH ×2 (13:19)
--- NOTE | 2019-01-24 13:43 | Physical Therapy Evaluation ---
PT Evaluation-General Medical Diagnosis Admission Date Jan 23, 2019 at 12:07 Medical Diagnosis: Sepsis, UTI, Knee Pain, Avulsion Fx R Ankle Onset Date: Jan 23, 2019 Therapy Diagnosis Therapy Diagnosis: decreased mobility, decreased ROM, gait deviation Height/Weight Height (Feet): 5 Height (Inches): 1.00 Weight (Pounds): 138 Weight (Ounces): 0.0 Precautions Precautions/Isolations: Fall Prevention, Standard Precautions Weight Bear Status Right Lower Extremity: Right Partial Weight Bearing Left Lower Extremity: Left Full Weight Bearing Referral Physician: Dr. Beckford Reason for Referral: Evaluation/Treatment Medical History Pertinent Medical History: Arthritis, DC, OA Additional Medical History Gout, Lupus, Hard of hearing, compression fx Current History ER by EMS c/o R ankle pain, L knee pain due to a fall from a few weeks ago. Reviewed History: Yes Social History Home: Single Level Current Living Status: Alone Entry Into Home: Stairs Without Railing PT Steps Into Home: 2 Prior/Core FIM Prior Level of Function Therapy Code Descriptions/Definitions Functional Mobile Measure: 0=Not Assessed/NA 4=Minimal Assistance 1=Total Assistance 5=Supervision or Setup 2=Maximal Assistance 6=Modified Mobile 3=Moderate Assistance 7=Complete Mobile Therapy Quality Codes: 6 Independent with activity with or without an assistive device 5 Patient requires set up or clean up by helper. Patient completes activity by themselves 4 Supervision or touching assist (CGA). [place] provide cues , steadying assist 3 The helper provides less than half the effort to complete the activity 2 The helper provides more than half the effort to complete the activity 1 Dependent. The helper does all the effort to complete an activity 7 Patient refused to complete or attempt activity 9 The patient did not perform the activity before the current illness or injury 88 Not attempted due to Medical conditions or safety concerns Functional Abilities and Goals: Independent: Patient completed the activities by him/herself, with or without an assistive device, with no assistance from a helper. Needed Some Help: Patient needed partial assistance from another person to complete activities. Dependent: A helper completed the activities for the patient. Unknown: Not Applicable: Bed Mobility: 7 Transfers (B,C,W/C) (FIM): 7 Gait: 6 Stairs: 6 Indoor Mobility (Ambulation): Independent Stairs: Independent Prior Devices Use: Walker Prior Device Use: FWW PT Evaluation-Current Subjective Pt lying in bed with daughters in room and reports she will not move because she is in so much pain. Pain Numeric Pain Scale: 10-Worst Possible Pain Location: Left Location Body Site: Knee Pt/Family Goals Pt to return home. ROM/Strength ROM Lower Extremities Decreased ROM R knee 50 due to self limiting. Refuses to move LLE Strength Lower Extremities NT Integumentary/Posture Bowel Incontinence: No Bladder Incontinence: No Neuromuscular (Tone, Coordination, Reflexes) NT Sensory Vision: Functional Hearing: Impaired Transfers Therapy Code Descriptions/Definitions Functional Mobile Measure: 0=Not Assessed/NA 4=Minimal Assistance 1=Total Assistance 5=Supervision or Setup 2=Maximal Assistance 6=Modified Mobile 3=Moderate Assistance 7=Complete Mobile Gait Mode of Locomotion: Walk Assessment/Needs Pt refused to sit to EOB or perform any bed mobility because of pain. Pt self- limited herself during tx with multiple statements of she will not move it because of the pain B LE. Pt was able to perform 5 knee flex with min A of SPT with very little ROM. PT educated pt on the consequences of not moving and remaining supine in bed. Pt reports she will start tomorrow trying to move more. Rehab Potential: Poor Post Rehab Potential-Barriers: co-morbidities, high pain PT Short Term Goals Short Term Goals Time Frame: Jan 31, 2019 Transfers (B,C,W/C) (FIM): 3 Gait (FIM): 1 Distance (FIM): 1=up to 49 ft Gait Distance Comment: 10' Gait Level of Assist: 3 Gait Assistive Device: FWW PT Plan Problem List Problem List: Activity Tolerance, Functional Strength, Safety, Balance, Gait, Transfer, Bed Mobility, ROM Treatment/Plan Treatment Plan: Continue Plan of Care Treatment Plan: Bed Mobility, Education, Functional Activity [place], Functional Strength, Gait, Safety, Therapeutic Exercise, Transfers Treatment Duration: Jan 31, 2019 Frequency: 6 times per week Estimated Hrs Per Day: .25 hour per day Patient and/or Family Agrees t: Yes Safety Risks/Education Patient Education: Correct Positioning, Safety Issues Discharge Recommendations Therapy D/C Recommendations: Retirement Placement, Detention (TCU/NH) Time/GCodes Time In: 1303 Time Out: 1319 Total Billed Treatment Time: 16 Total Billed Treatment 1 visit EVL 16 min DERICK REDDING PT Jan 24, 2019 13:43
--- NOTE | 2019-01-24 14:20 | NUR ---
Pastoral care visit, pts sisters at bedside, they shared that their pastors came by just prior to my visit and they were doing well. .
--- NOTE | 2019-01-24 14:44 | Physician Query Clarification ---
PQ-Further Specificity Admission/Discharge Admission Date: Jan 23, 2019 at 12:07 Discharge Date: The medical record reflects the following clinical scenario: History/Risk Factors: T12 compression fracture Fall on 01/07 Clinical Findings: T12 compression fracture was documented in record from 2 weeks ago. Osteoporosis and back injury were both listed on H&P. Treatment:Tramadol HCI, Tylenol 650mg. Question: Can you further specify T12 compression fracture per the clinical indicators above? Please document below. 1. T12 pathologic fracture due to osteoporosis. 2. T12 fracture due to fall? 3. Other, with explanation of the clinical findings. 4. Clinically undetermined, no explanation for the clinical findings. PHYSICIAN RESPONSE Can you specify per above: Other, explanation/clinical finding (Multifacotorial , like due to fall but osteoporeosis contributing) In responding to this query, please exercise your independent professional judgment. The purpose of this communication is to more accurately reflect the complexity of your patients condition. The fact that a question is asked does not imply that any particular answer is desired or expected. Thank you for your timely response to this clarification. Requestors name: Aleisha Ortiz [facility] Phone # ext [phone] or [phone] THIS PHYSICIAN QUERY FORM IS A PERMANENT PART OF THE MEDICAL RECORD ALEISHA ORTIZ Jan 24, 2019 14:44 MEAGAN PATRICK MD Jan 25, 2019 14:39
--- NOTE | 2019-01-24 14:58 | Physician Query Clarification ---
PQ-Further Specificity Admission/Discharge Admission Date: Jan 23, 2019 at 12:07 Discharge Date: The medical record reflects the following clinical scenario: History/Risk Factors: Lupus Clinical Findings: Treatment: Question: Can you further specify Type of Lupus per the clinical indicators above? Please document what type below. 1. Lupus erythematosus. 2. Systemic Lupus Erythematosus. 3. Other, with explanation of the clinical findings. 4. Clinically undetermined, no explanation for the clinical findings. PHYSICIAN RESPONSE Can you specify per above: 2 In responding to this query, please exercise your independent professional judgment. The purpose of this communication is to more accurately reflect the complexity of your patients condition. The fact that a question is asked does not imply that any particular answer is desired or expected. Thank you for your timely response to this clarification. Requestors name: Aleisha Ortiz [facility] Phone # ext [phone] or [phone] THIS PHYSICIAN QUERY FORM IS A PERMANENT PART OF THE MEDICAL RECORD ALEISHA ORTIZ Jan 24, 2019 14:58 MEAGAN PATRICK MD Jan 25, 2019 14:37
--- NOTE | 2019-01-24 18:00 | Diagnostic Imaging Report ---
EXAMINATION: Magnetic resonance imaging of the left knee without intravenous contrast DATE: January 24, 2019. COMPARISON: CT left knee, January 24, 2019. Left knee radiographs, January 23, 2019. INDICATION: 83-year-old female, fall several weeks ago with severe left knee pain. TECHNIQUE: Multiplanar, multisequence non contrast enhanced MR imaging was accomplished. FINDINGS: There are limitations of the exam relating to motion artifact and low nnvgwi-gm-aivnt ratio. MENISCI: There is an extensive complex multidirectional tear involving the entire medial meniscus. There is no medial meniscal extrusion. There is likely a longitudinal horizontal type tear involving the entire lateral meniscus. LIGAMENTS AND TENDONS: The anterior cruciate ligament is not well seen and likely completely torn. This is of uncertain exact age. The posterior cruciate ligament is intact. The medial collateral ligament is intact. The iliotibial band, mid third lateral capsular ligament, fibular collateral ligament, biceps femoris tendon and conjoined tendon are intact. The quadriceps tendon and patella ligament are intact. JOINT: There are broad areas of full-thickness patellofemoral compartment cartilage loss as well as severe medial compartment cartilage loss. There is a very large knee joint effusion. There is no identified intra-articular body or particular prominent synovitis. There is note of chondrocalcinosis on prior radiographs. BONE: There are are areas of T2 hyperintense signal within the distal femoral metaphysis extending more proximally and within the proximal tibial metaphysis extending more distally. This may relate to prominent red marrow, especially given distribution. There is no acute fracture, bone contusion or evidence of osteonecrosis. BURSAE AND SOFT TISSUES: There is a large partially ruptured Wells's cyst. IMPRESSION: 1. Significant motion limitations of the exam and limitations relating to low crltpl-if-wygry ratio. 2. No identified acute fracture. 3. Extensive tears of the medial and lateral meniscus. 4. The anterior cruciate ligament is not well seen and may be completely torn. This is of uncertain exact age. Intact posterior cruciate ligament. 5. Severe medial and patellofemoral compartment arthritis with large knee joint effusion. No identified intra-articular body or particularly prominent synovitis. 6. Partially ruptured large Wells's cyst. 7. Prominent red marrow in the distal femur and proximal tibia. Correlating for possible cause of very prominent red marrow in this location would be recommended. Dictated by: Dictated on workstation # [id number]
--- NOTE | 2019-01-24 19:11 | NUR ---
CATIE LOVE NOTIFIED OF RESULTS OF MRI AND CT SCAN. NO NEW ORDER'S AT THIS TIME.
[2019-01-25] MEDS: LACTOBACILLUS ACIDOPHILUS (PROBIOTIC) CAPSULE PO SCH ×3 (06:26→18:33)
[2019-01-25 08:00] VITALS: BP 165/83
--- NOTE | 2019-01-25 09:45 | NUR ---
DR. DURAN CALLED AND STATED TO PUT A BRACE ON PTS. LEFT KNEE OR TWYLA WRAP IF TOLERATED. DR. DURAN STATED HE WOULD NOT DO ANY SURGERY OR INTERVENTION AND TO KEEP ICE TO HER LEFT KNEE.
--- NOTE | 2019-01-25 10:21 | NUR ---
V/S=98.5 120 28 96 % ON R/A BP 156/79 C/O OF CHEST PAIN. EKG DONE.
[2019-01-25] MEDS: fentaNYL INJECTION 100 MCG/2 ML AMP IVP PRN ×2 (10:32→12:30)
--- NOTE | 2019-01-25 10:45 | Physical Therapy Progress Note ---
Therapy Progress Note Patient having chest pain and getting EKG done. Will hold for now and check back on sunday. BUBBA CARRILLO PT Jan 25, 2019 10:45
[2019-01-25] MEDS: NITROGLYCERIN 0.4 MG SL TABS BTL 25'S SL PRN ×4 (10:58→23:33)
--- NOTE | 2019-01-25 11:24 | Progress Note-Hospitalist ---
Subjective HPI/CC On Admission Date Seen by Provider: Jan 25, 2019 Time Seen by Provider: 11:19 Pt is an 83yoCF with a PMH lupus, CAD, and chronic back pain who presented to the ER with a CC of back pain, knee pain, and weakness. She was seen in the ER on 01/07 after a fall and was found to have a T12 compression fracture. She was discharged home and did relatively well ambulating with a walker until 3 days ago when her mobility worsened. Today she was unable to get out of bed so her daughter called EMS to bring her to the ER for evaluation. She was found to have a UTI and meet sepsis criteria and was admitted for further management. She complains of severe knee pain as well. Subjective/Events-last exam Called to bedside over complaints of chest pain. She states chest pain is left side with no radiation. Pain is reproducible with palpation. No diaphoresis or nausea associated with it. Some SOB. States it feels similar to when she had a heart attack but not as severe as that. Focused Exam Lactate Level 01/23/19 11:50: Lactic Acid Level 1.42 Objective Exam Vital Signs Vital Signs Date Time Temp Pulse Resp B/P (MAP) Pulse Ox O2 Delivery O2 Flow Rate FiO2 01/25/19 08:00 98.6 114 20 165/83 (110) 97 Room Air Capillary Refill : Less Than 3 SecondsLess Than 3 Seconds General Appearance: No Apparent Distress, Chronically ill Respiratory: Lungs Clear, No Accessory Muscle Use, No Respiratory Distress Cardiovascular: Regular Rate, Rhythm, No JVD, No Murmur Gastrointestinal: Normal Bowel Sounds, Non Tender, Soft Genital/Rectal: Other (catheter in place) Extremity: Other (swelling without erythema around left knee, patella remains laterally and anteriorly displaced, pt did not tolerate maipulation of knee) Neurologic/Psychiatric: Alert, Disoriented Skin: Normal Color, Warm/Dry Results/Procedures Lab Patient resulted labs reviewed. Imaging: Reviewed Imaging Report Assessment/Plan Assessment and Plan Assess & Plan/Chief Complaint Sepsis Diagnosis/Problems Diagnosis/Problems (1) Chest pain Status: Acute Assessment & Plan: Reproducible EKG shows no stemi, sinus tach Troponin checked and mildly elevated I called and discussed with Dr Weinstein who will see in consultation trend troponin High risk for PE given sinus tach and immobility- will get CTA as well Qualifiers: Chest pain type: unspecified Qualified Codes: R07.9 - Chest pain, unspecified (2) Sepsis Status: Acute Assessment & Plan: Sepsis- UA consistent with UTI Culture growing pansensitive e coli Continue Rocephin Qualifiers: Sepsis type: sepsis due to unspecified organism Qualified Codes: A41.9 - Sepsis, unspecified organism (3) Urinary tract infection Status: Acute Assessment & Plan: Abx as above per cultures Qualifiers: Urinary tract infection type: site unspecified Hematuria presence: without hematuria Qualified Codes: N39.0 - Urinary tract infection, site not specified (4) Left knee pain Status: Acute Assessment & Plan: XR revealed effusions PT expressed concern about patellar dislocation Unable to tolerate much of exam from me still Ortho consulted, appreciate recs Knee brace ordered but patient declines due to pain No plan for intervention Qualifiers: Chronicity: acute Qualified Codes: M25.562 - Pain in left knee (5) Generalized weakness Status: Acute Assessment & Plan: PT/OT consulted Clinical Quality Measures DVT/VTE Risk/Contraindication: Risk Factor Score Per Nursin RFS Level Per Nursing on Admit: 4+=Very High MEAGAN PATRICK MD Jan 25, 2019 11:24
[2019-01-25] MEDS ORDERED: NS 100 ML (IVPB) BAG IV ONE (11:30)
[2019-01-25] MEDS ORDERED: CATHETER FLUSH 10 ML SYR IV PRN (11:30)
[2019-01-25] MEDS ORDERED: IOHEXOL 350 MG/ML 100 ML (OMNIPAQUE 350) VIAL IV ONE (11:30)
[2019-01-25] MEDS ORDERED: RECEIVED CONTRAST 20 ML VIAL IV SCH (11:30)
--- NOTE | 2019-01-25 12:01 | Diagnostic Imaging Report ---
PROCEDURE: CT angiography of the chest with contrast. TECHNIQUE: Multiple contiguous axial images were obtained through the chest after uneventful bolus administration of intravenous contrast. 2D reconstructed CTA MIP acquisitions were also performed. INDICATION: Chest pain. Evaluate for pulmonary embolism. FINDINGS: There is adequate opacification of the pulmonary arteries for diagnostic evaluation. There is no central pulmonary arterial filling defect. There is no defect to the level of the segmental branches. The small subsegmental branches are mildly limited by motion, but there are no findings felt suspect for embolism. There is mild dependent atelectasis. There is no significant consolidation. There appear to be trace pleural effusions. There is no pneumothorax. There is no pulmonary nodule or mass. There is mild atherosclerotic disease within the aortic arch. There is an aberrant right subclavian artery. There is no dissection. There is mild enlargement of the cardiac silhouette with a trace pericardial effusion. The visualized portion of the upper abdomen demonstrates a left renal cyst. No acute upper abdominal abnormality demonstrated. Patient's fracture of T12 appears unchanged. There are fracture lines through the anterior and middle column as well as an apparent fracture within the right-sided posterior elements resulting in a three-column fracture. IMPRESSION: 1. No CT angiographic evidence of pulmonary embolism. 2. Trace pericardial and pleural effusions. 3. No acute thoracic aorta abnormality. 4. Three-column fracture of T12 with no interval change in height loss or alignment. Dictated by: Dictated on workstation # [id number]
[2019-01-25] MEDS: cefTRIAXone 1,000 MG/SWFI 10 ML IV PUSH IV SCH ×2 (12:37)
[2019-01-25] MEDS: NS IV 1000 ML 1,000 ML IV SCH (12:38)
--- NOTE | 2019-01-25 13:19 | Consultation-Cardiology ---
HPI-Cardiology Cardiology Consultation: Date of Consultation 01/25/19 Time Seen by a Provider: 12:45 Date of Admission Attending Physician Marlene Beckford MD Admitting Physician Nickolas Castillo MD Consulting Physician VICKI BEST MD, MA, FACP, FACC, FSCAI, CCDS Physician requesting consult: Dr Beckford HPI: Chief Complaint: CC: Chest pain HPI: 83 yo woman admitted to Dr Beckford with bilat leg pain, suspected to be due a syncopal fall, who has had chest pain this am: L and R parasternal, mild to mod , sometimes sharp, sometimes dull, non-radiating, not associated with other symptoms, partially improved with s/l NTG, experienced a few months/year earlier at which time she thinks she may have had a heart attack (no work up at that time), nearly resolved (a couple of hours after onset) by time of my exam. No exertional shortness of breath or palp. A syncopal episode in Dec 2018 sled to -12 [facility]. This admission with leg pain and swelling may have been due a fall (her daughter suspects, but the patient does not confirm). Review of Systems-Cardiology Review of Systems Constitutional: malaise, tiredness; No weight loss, No weight gain Eyes: No vision change Ears/Nose/Throat: No ear discharge, No nasal drainage, No recent hearing loss Respiratory: As described under HPI Cardiovascular: As described under HPI Gastrointestinal: No constipation, No diarrhea, No nausea, No vomiting, No stool coloration changes Genitourinary: No dysuria, No hematuria, No urine frequency changes : No Musculoskeletal: back pain (chronic), joint pain (chronic) Skin: No rash, No ulcerations Psychiatric/Neurological: syncope (see above under HPI); No seizure, No focal weakness Hematologic: No bleeding abnormalities [id number]-Ioqidi Hx Patient Social History Alcohol Use: Denies Use Recreational Drug Use: No Smoking Status: Never a Smoker Recent Foreign Travel: No Recent Infectious Disease Expo: No Hospitalization with Isolation: Denies Physical Abuse Screen: No Sexual Abuse: No Immunizations Up To Date Tetanus Booster (TDap): Unknown Past Medical History PMH As described under Assessment. Family Medical History Family History: Asthma 19 FATHER Diabetes mellitus 19 FATHER 19 MOTHER G8 SISTER Hypertension 19 MOTHER Myocardial infarction 19 FATHER ( AT 62 FROM MS) Neoplasm 19 MOTHER (BREAST CANCER WITH MASTECTOMY) Allergies and Home Medications Allergies Coded Allergies: Penicillins (Verified Allergy, Severe, HIVES, 11/04/16) sulfamethoxazole (Verified Allergy, Severe, 11/04/16) SEIZURE trimethoprim (Verified Allergy, Severe, 11/04/16) SEIZURE Home Medications Docusate Sodium 100 Mg Capsule, 100 MG PO DAILY, (Reported) Magnesium Oxide 400 Mg Tablet, 400 MG PO DAILY, (Reported) Potassium Gluconate 99 Mg Tablet, 99 MG PO DAILY, (Reported) Tramadol HCl 50 Mg Tablet, 25 MG PO Q6H PRN for PAIN-MODERATE, (Reported) Patient Home Medication List Home Medication List Reviewed: Yes Physical Exam-Cardiology Physical Exam Vital Signs/I&O 01/25/19 08:00 Temp 98.6 Pulse 114 Resp 20 B/P (MAP) 165/83 (110) Pulse Ox 97 O2 Delivery Room Air 01/25/19 00:00 Intake Total 1410 ml Output Total 1000 ml Balance 410 ml Capillary Refill : Less Than 3 SecondsLess Than 3 Seconds Constitutional: AAO x 3, well-developed, well-nourished HEENT: EOMI, hearing is well preserved, xanthelasmas are seen Neck: carotid pulses are 2 + bilaterally, with good upstrokes Respiratory: No accessory muscle use; other (good bilat air entry, diminished at the bases) Cardiovascular: regular rate-rhythm, S1 and S2, systolic murmur (faint KARLENE at card base) Gastrointestinal: No tender; soft; No guarding, No rebound; audible bowel sounds Extremities: No clubbing, No cyanosis, No significant edema Neurologic/Psychiatric: grossly intact (able to move all limbs, but we did not attempt motion at knees or ankles because of pain) Skin: No rash on exposed areas, No ulcerations on exposed areas Data Review Labs Laboratory Tests 01/25/19 10:47: Troponin I 0.263H Microbiology 01/23/19 Blood Culture - Preliminary, Resulted No growth 01/24/19 Influenza Types A,B Antigen (YIFAN) - Final, Complete 01/23/19 Urine Culture - Final, Complete Escherichia coli Laboratory Tests 01/24/19 10:00 A/P-Cardiology Assessment/Admission Diagnosis Chest discomfort and minimal troponin elevation, cannot exclude ac NSTEMI Syncope in Dec 2018, per patient and family description T-12 fracture in Dec 2018 due to syncopal fall (as stated by her family) This admission with L knee pain and R ankle pain of unclear etiology - Managed by Hospitalist and Ortho Svces Leucocytosis of unclear etiology - Managed by Hospitalist Svce Hypertension Incomplete LBBB on ECG, apparently chronic (pt reports a h/o abn ECG in the past ) Discussion and Recomendations * I reviewed cardiac treatment options with her and her family. She understands and wishes to be managed conservatively * Treat with bb, ASA, clopidogrel * Check lipid panel. Consider statin * Telemetry * Echo * Has h/o syncope. Consider implantable loop recorder prior to d/c if nothing shows on telemetry Clinical Quality Measures DVT/VTE Risk/Contraindication: Risk Factor Score Per Nursin RFS Level Per Nursing on Admit: 4+=Very High VICKI BEST MD FACP FAC CCDS Jan 25, 2019 13:19
[2019-01-25] MEDS ORDERED: ASPIRIN 81 MG CHEW (CHILDREN'S ASA) PO NR (13:30)
[2019-01-25] MEDS ORDERED: meTOprolol SUCCINATE 100 MG (TOPROL XL) TAB PO NR (13:30)
[2019-01-25] MEDS ORDERED: CLOPIDOGREL 75 MG (PLAVIX) TABLET PO NR (13:30)
[2019-01-25 15:38] VITALS: BP 129/76
[2019-01-25] MEDS: ACETAMINOPHEN 325 MG TABLET PO PRN (15:38)
[2019-01-25 20:50] VITALS: BP 159/77
[2019-01-25 23:00] VITALS: BP 150/86
[2019-01-25 23:25] VITALS: BP 153/79
[2019-01-26 03:37] VITALS: BP 162/90
[2019-01-26 05:13] LABS: BASOPHILS % (AUTO) 0 % (0-10); EOSINOPHILS % (AUTO) 0 % (0-10); HEMATOCRIT 40 % (35-52); LYMPHOCYTES # (AUTO) 1.6 X 10^3 (1.0-4.0); LYMPHOCYTES % (AUTO) 7 % (12-44); MEAN CORPUSCULAR HEMOGLOBIN 24 PG (25-34); MEAN CORPUSCULAR HGB CONC 33 G/DL (32-36); MEAN CORPUSCULAR VOLUME 74 FL (80-99); MEAN PLATELET VOLUME 10.9 FL (7.4-10.4); MONOCYTES # (AUTO) 5.6 X 10^3 (0.0-1.0); MONOCYTES % (AUTO) 25 % (0-12); NEUTROPHILS # (AUTO) 14.9 X 10^3 (1.8-7.8); NEUTROPHILS % (AUTO) 67 % (42-75); PLATELET COUNT 383 10^3/uL (130-400); RED CELL DISTRIBUTION WIDTH 19.7 % (10.0-14.5); WHITE BLOOD COUNT 22.2 10^3/uL (4.3-11.0)
[2019-01-26] MEDS: LACTOBACILLUS ACIDOPHILUS (PROBIOTIC) CAPSULE PO SCH ×3 (05:31→18:06)
[2019-01-26 05:38] LABS: ALANINE AMINOTRANSFERASE 11 U/L (0-55); ALBUMIN 2.9 GM/DL (3.2-4.5); ALKALINE PHOSPHATASE 123 U/L (40-136); BILIRUBIN,TOTAL 0.6 MG/DL (0.1-1.0); BUN/CREATININE RATIO 17; CALCIUM 8.7 MG/DL (8.5-10.1); CARBON DIOXIDE 19 MMOL/L (21-32); CHLORIDE 103 MMOL/L (98-107); CHOLESTEROL 104 MG/DL (< 200); CREATININE SERUM 0.52 MG/DL (0.60-1.30); GFR ESTIMATED > 60; GLUCOSE 102 MG/DL (70-105); HDL CHOLESTEROL 25 MG/DL (40-60); MAGNESIUM 1.5 MG/DL (1.8-2.4); POTASSIUM 3.4 MMOL/L (3.6-5.0); SODIUM 134 MMOL/L (135-145); TOTAL PROTEIN 6.7 GM/DL (6.4-8.2); TRIGLYCERIDES 67 MG/DL (<150); VLDL CHOLESTEROL 13 MG/DL (5-40)
[2019-01-26 08:00] VITALS: BP 164/90
[2019-01-26] MEDS: NITROGLYCERIN 0.4 MG SL TABS BTL 25'S SL PRN (08:53)
[2019-01-26] MEDS: CLOPIDOGREL 75 MG (PLAVIX) TABLET PO SCH (09:11)
[2019-01-26] MEDS: meTOprolol SUCCINATE 100 MG (TOPROL XL) TAB PO SCH (09:11)
[2019-01-26] MEDS: ASPIRIN 81 MG CHEW (CHILDREN'S ASA) PO SCH (09:11)
--- NOTE | 2019-01-26 09:57 | NUR ---
0845 DAUGHTER AT BEDSIDE AND NOTICED PT'S GRIMACING IN PAIN, THIS RN TO ROOM, AND PT DROWSY AWAKENS TO VERBAL STIMULI, PT C/O OF PAIN RATES PAIN AT 9 ON 0-10 SCALE, PAIN CENTERED IN CHEST, NITRO TABLET GIVEN AND TELEMETRY STIRPS OBTAINED WELL EKG. PT NOTED TO BE SOA SA02 NOTED AT 92%, PT PLACED ON 02 AT 2 LITER PER NC FOR COMFORT. 0851 PT RESTING QUIETLY VS REMAIN STABLE, SA02 AT 95% WITH THE 2 LITERS, PT STATES CHEST PAIN IS NOW AT A 4 ON 0-10 SCALE. DAUGHTER AT BEDSIDE, NO FURTHER NEEDS NOTED AT THIS TIME WILL CONTINUE TO MONITOR.
--- NOTE | 2019-01-26 11:17 | Progress Note-Hospitalist ---
Subjective HPI/CC On Admission Date Seen by Provider: Jan 26, 2019 Time Seen by Provider: 11:12 Pt is an 83yoCF with a PMH lupus, CAD, and chronic back pain who presented to the ER with a CC of back pain, knee pain, and weakness. She was seen in the ER on 01/07 after a fall and was found to have a T12 compression fracture. She was discharged home and did relatively well ambulating with a walker until 3 days ago when her mobility worsened. Today she was unable to get out of bed so her daughter called EMS to bring her to the ER for evaluation. She was found to have a UTI and meet sepsis criteria and was admitted for further management. She complains of severe knee pain as well. Subjective/Events-last exam Pt reports pain improving. Daughter concerned that she is not asking for pain medicine in time as she doesn't want to bother the nurses. Pt states pain is still severe even with tramadol. Discussed use of hydrocodone but still declines as it made her hallucinate previous. Tolerating fentanyl well though. Denies any constipation. Focused Exam Lactate Level 01/23/19 11:50: Lactic Acid Level 1.42 Objective Exam Vital Signs Vital Signs Date Time Temp Pulse Resp B/P (MAP) Pulse Ox O2 Delivery O2 Flow Rate FiO2 01/26/19 08:40 Room Air 01/26/19 08:00 98.0 97 18 164/90 (114) 95 Capillary Refill : Less Than 3 SecondsLess Than 3 Seconds General Appearance: No Apparent Distress, Chronically ill Respiratory: Lungs Clear, No Accessory Muscle Use, No Respiratory Distress Cardiovascular: Regular Rate, Rhythm, No JVD, No Murmur Gastrointestinal: Normal Bowel Sounds, Non Tender, Soft Genital/Rectal: Other (catheter in place) Extremity: Other (swelling without erythema around left knee, patella remains laterally and anteriorly displaced) Neurologic/Psychiatric: Alert, Disoriented Skin: Normal Color, Warm/Dry Results/Procedures Lab Laboratory Tests 01/26/19 05:00 Patient resulted labs reviewed. Imaging: Reviewed Imaging Report Assessment/Plan Assessment and Plan Assess & Plan/Chief Complaint Sepsis Diagnosis/Problems Diagnosis/Problems (1) Sepsis Status: Acute Assessment & Plan: Sepsis- UA consistent with UTI Culture growing pansensitive e coli Continue Rocephin as still has significant leukocytosis Qualifiers: Sepsis type: sepsis due to unspecified organism Qualified Codes: A41.9 - Sepsis, unspecified organism (2) Chest pain Status: Acute Assessment & Plan: Remained intermittent overnight EKG shows no STEMI, sinus tach Troponin checked and mildly elevated CTA negative for PE Qualifiers: Chest pain type: unspecified Qualified Codes: R07.9 - Chest pain, unspecified (3) Urinary tract infection Status: Acute Assessment & Plan: Abx as above per cultures Qualifiers: Urinary tract infection type: site unspecified Hematuria presence: without hematuria Qualified Codes: N39.0 - Urinary tract infection, site not specified (4) Left knee pain Status: Acute Assessment & Plan: Ortho consulted, appreciate recs Knee brace ordered but patient declines due to pain She states she's willing to try today No plan for intervention Was able to get up to commode yesterday Qualifiers: Chronicity: acute Qualified Codes: M25.562 - Pain in left knee (5) Generalized weakness Status: Acute Assessment & Plan: PT/OT consulted Clinical Quality Measures DVT/VTE Risk/Contraindication: Risk Factor Score Per Nursin RFS Level Per Nursing on Admit: 4+=Very High MEAGAN PATRICK MD Jan 26, 2019 11:17
[2019-01-26] MEDS ORDERED: KCL 20 MEQ TAB (K-DUR) PO NR (11:30)
[2019-01-26] MEDS: fentaNYL PATCH 12 MCG (DURAGESIC) TD SCH (11:49)
[2019-01-26] MEDS: ENOXAPARIN 40 MG/0.4 ML (LOVENOX) SYR SC SCH (11:49)
[2019-01-26] MEDS: NS IV 1000 ML 1,000 ML IV SCH (11:58)
[2019-01-26 12:00] VITALS: BP 158/89
[2019-01-26] MEDS: cefTRIAXone 1,000 MG/SWFI 10 ML IV PUSH IV SCH ×2 (12:11)
[2019-01-26 16:12] VITALS: BP 121/72
--- NOTE | 2019-01-26 17:26 | Progress Note-Cardiology ---
Cardiology SOAP Progress Note Subjective: One brief episode of chest discomfort today relieved with s/l NTG Gen malaise No shortness of breath or palp or syncope Objective: I&O/Vital Signs 01/26/19 01/26/19 01/26/19 01/26/19 07:00 08:00 08:40 12:00 Temp 98.0 97.8 Pulse 101 97 90 Resp 18 20 B/P (MAP) 164/90 (114) 158/89 (112) Pulse Ox 95 96 O2 Delivery Room Air Room Air Room Air 01/26/19 01/26/19 13:00 16:12 Temp 97.3 Pulse 95 83 Resp 14 B/P (MAP) 121/72 (88) Pulse Ox 94 O2 Delivery Room Air 01/26/19 00:00 Intake Total 1240 ml Output Total 1300 ml Balance -60 ml Weight (Pounds): 138 Weight (Ounces): 0.0 Weight (Calculated Kilograms): 62.155280 Constitutional: AAO x 3, well-developed, well-nourished Respiratory: No accessory muscle use; other (good bilat air entry, diminished at the bases) Cardiovascular: regular rate-rhythm, S1 and S2, systolic murmur (faint KARLENE at card base) Gastrointestional: No tender; soft; No guarding, No rebound; audible bowel sounds Extremities: No clubbing, No cyanosis, No significant edema Neurologic/Psychiatric: grossly intact (able to move all limbs, but we did not attempt motion at knees or ankles because of pain) Skin: No rash on exposed areas, No ulcerations on exposed areas Results/Procedures: Labs Laboratory Tests 01/26/19 05:00: White Blood Count 22.2H, Red Blood Count 5.41, Hemoglobin 13.0, Hematocrit 40, Mean Corpuscular Volume 74L, Mean Corpuscular Hemoglobin 24L, Mean Corpuscular Hemoglobin Concent 33, Red Cell Distribution Width 19.7H, Platelet Count 383, Mean Platelet Volume 10.9H, Neutrophils (%) (Auto) 67, Lymphocytes (%) (Auto) 7L , Monocytes (%) (Auto) 25H, Eosinophils (%) (Auto) 0, Basophils (%) (Auto) 0, Neutrophils # (Auto) 14.9H, Lymphocytes # (Auto) 1.6, Monocytes # (Auto) 5.6H, Eosinophils # (Auto) 0.0, Basophils # (Auto) 0.0, Sodium Level 134L, Potassium Level 3.4L, Chloride Level 103, Carbon Dioxide Level 19L, Anion Gap 12, Blood Urea Nitrogen 9, Creatinine 0.52L, Estimat Glomerular Filtration Rate > 60, BUN/ Creatinine Ratio 17, Glucose Level 102, Calcium Level 8.7, Corrected Calcium 9.6 , Magnesium Level 1.5L, Total Bilirubin 0.6, Aspartate Amino Transf (AST/SGOT) 25, Alanine Aminotransferase (ALT/SGPT) 11, Alkaline Phosphatase 123, Total Protein 6.7, Albumin 2.9L, Triglycerides Level 67, Cholesterol Level 104, LDL Cholesterol Direct 62, VLDL Cholesterol 13, HDL Cholesterol 25L, Thyroid Stimulating Hormone (TSH) 3.31 Microbiology 01/23/19 Blood Culture - Preliminary, Resulted No growth 01/24/19 Influenza Types A,B Antigen (YIFAN) - Final, Complete 01/23/19 Urine Culture - Final, Complete Escherichia coli A/P: Assessment: Ac NSTEMI Ischemic cardiomyopathy. Echo of 01/26/19 showed anteroseptal and apical hypokinesis, LVEF 35-40%, grade I hernandez dysfunction, PASP 40 mmHg, mod MR, mild to mod TR Syncope in Dec 2018, per patient and family description T-12 fracture in Dec 2018 due to syncopal fall (as stated by her family) This admission with L knee pain and R ankle pain of unclear etiology - Managed by Hospitalist and Ortho Svces Leucocytosis of unclear etiology - Managed by Hospitalist Svce Hypertension Incomplete LBBB on ECG, apparently chronic (pt reports a h/o abn ECG in the past ) Plan: * Continue therapy with bb and DAPT * Add statin * Add TWYLA-inhibitor * I discussed echo results and treatment options with pt and family, including invasive options. They are considering VICKI BEST MD FACP FAC CCDS Jan 26, 2019 17:26
[2019-01-26] MEDS ORDERED: lisINopril 5 MG (PRINIVIL) TABLET PO ONE (17:30)
[2019-01-26 19:08] VITALS: BP 161/88
[2019-01-26] MEDS ORDERED: ATORVASTATIN 40 MG (LIPITOR) TABLET ONE (19:50)
[2019-01-26] MEDS ORDERED: lisINopril 5 MG (PRINIVIL) TABLET ONE (19:50)
[2019-01-26] MEDS: ATORVASTATIN 40 MG (LIPITOR) TABLET PO SCH (19:53)
[2019-01-26 23:00] VITALS: BP 137/77
[2019-01-27 03:54] VITALS: BP 130/78
[2019-01-27] MEDS: LACTOBACILLUS ACIDOPHILUS (PROBIOTIC) CAPSULE PO SCH ×3 (05:19→18:34)
[2019-01-27 06:26] LABS: BASOPHILS % (AUTO) 0 % (0-10); EOSINOPHILS % (AUTO) 0 % (0-10); HEMATOCRIT 39 % (35-52); HEMOGLOBIN 12.4 G/DL (11.5-16.0); LYMPHOCYTES # (AUTO) 2.3 X 10^3 (1.0-4.0); LYMPHOCYTES % (AUTO) 15 % (12-44); MEAN CORPUSCULAR HEMOGLOBIN 24 PG (25-34); MEAN CORPUSCULAR HGB CONC 32 G/DL (32-36); MEAN CORPUSCULAR VOLUME 75 FL (80-99); MEAN PLATELET VOLUME 11.5 FL (7.4-10.4); MONOCYTES # (AUTO) 2.8 X 10^3 (0.0-1.0); MONOCYTES % (AUTO) 18 % (0-12); NEUTROPHILS # (AUTO) 10.4 X 10^3 (1.8-7.8); NEUTROPHILS % (AUTO) 67 % (42-75); PLATELET COUNT 377 10^3/uL (130-400); RED CELL DISTRIBUTION WIDTH 18.9 % (10.0-14.5); WHITE BLOOD COUNT 15.6 10^3/uL (4.3-11.0)
[2019-01-27] MEDS: NS IV 1000 ML 1,000 ML IV SCH (06:28)
[2019-01-27 06:44] LABS: BUN/CREATININE RATIO 17; CALCIUM 8.6 MG/DL (8.5-10.1); CARBON DIOXIDE 20 MMOL/L (21-32); CHLORIDE 103 MMOL/L (98-107); CREATININE SERUM 0.48 MG/DL (0.60-1.30); GFR ESTIMATED > 60; GLUCOSE 88 MG/DL (70-105); POTASSIUM 3.9 MMOL/L (3.6-5.0); SODIUM 133 MMOL/L (135-145)
[2019-01-27 08:00] VITALS: BP 161/80
[2019-01-27] MEDS: lisINopril 5 MG (PRINIVIL) TABLET PO SCH (08:01)
[2019-01-27] MEDS: CLOPIDOGREL 75 MG (PLAVIX) TABLET PO SCH (08:01)
[2019-01-27] MEDS: ASPIRIN 81 MG CHEW (CHILDREN'S ASA) PO SCH (08:02)
[2019-01-27] MEDS: meTOprolol SUCCINATE 100 MG (TOPROL XL) TAB PO SCH (08:02)
--- NOTE | 2019-01-27 09:48 | Physical Therapy Daily Note ---
PT Daily Note-Current Subjective Pt supine in bed and reluctantly agrees to PT. Pt and daughter report that pt was able to sit in recliner yesterday for 1 hour. Pain Numeric Pain Scale: 10-Worst Possible Pain Location: Left Location Body Site: Knee Mental Status Patient Orientation: Person Attachments: IV Transfers Therapy Code Descriptions/Definitions Functional [place] Measure: 0=Not Assessed/NA 4=Minimal Assistance 1=Total Assistance 5=Supervision or Setup 2=Maximal Assistance 6=Modified [place] 3=Moderate Assistance 7=Complete [place] Therapy Quality Codes: 6 Independent with activity with or without an assistive device 5 Patient requires set up or clean up by helper. Patient completes activity by themselves 4 Supervision or touching assist (CGA). [place] provide cues , steadying assist 3 The helper provides less than half the effort to complete the activity 2 The helper provides more than half the effort to complete the activity 1 Dependent. The helper does all the effort to complete an activity 7 Patient refused to complete or attempt activity 9 The patient did not perform the activity before the current illness or injury 88 Not attempted due to Medical conditions or safety concerns Transfers (B, C, W/C) (FIM): 1 Scootin Supine to/from Sit: 1 Sit to/from Stand: 1 Weight Bearing Right Lower Extremity: Right Partial Weight Bearing Left Lower Extremity: Left Full Weight Bearing Gait Training Gait (FIM): 1 Distance (FIM): 1=up to 49 ft Distance: 3' Gait Level of Assist: 2 Gait Persons Needed: 1 Gait Assistive Device: FWW Exercises Supine Ex: Ankle pumps Supine Reps: 10 Assessment Current Status: Fair Progress Pt continues to self limit due to pain. Pt requires increased time to perform activities due to all the pain and discomfort she feels, which is in her back, L knee, and R ankle. Pt was able to perform AP with little AROM into DF. Pt attempted knee flexion of the RLE but was unable to perform with any ROM. PT placed a knee immobilizer on pts L knee. Pt was dependent A-max A with bed mobility. Pt dependent A from EOB to standing with FWW, pt used FWW to pull. Pt was able to use side steps with FWW and max-mod A to recliner. Pt was able to remain standing with min A and FWW putting wt through RLE. Pt stand to sit was not very smooth. Pt is in recliner with all needs met and family in room. PT Short Term Goals Short Term Goals Time Frame: Jan 31, 2019 Transfers (B,C,W/C) (FIM): 3 Gait (FIM): 1 Distance (FIM): 1=up to 49 ft Gait Distance Comment: 10' Gait Level of Assist: 3 Gait Assistive Device: FWW PT Plan Problem List Problem List: Activity Tolerance, Functional Strength, Safety, Balance, Gait, Transfer, Bed Mobility, ROM Treatment/Plan Treatment Plan: Continue Plan of Care Treatment Plan: Bed Mobility, Education, Functional Activity [place], Functional Strength, Gait, Safety, Therapeutic Exercise, Transfers Treatment Duration: Jan 31, 2019 Frequency: 6 times per week Estimated Hrs Per Day: .25 hour per day Patient and/or Family Agrees t: Yes Time/GCodes Time In: 827 Time Out: 859 Total Billed Treatment Time: 32 Total Billed Treatment 1 visit FA x2 32 min DERICK REDDING PT Jan 27, 2019 09:48
--- NOTE | 2019-01-27 10:03 | Progress Note-Cardiology ---
Cardiology SOAP Progress Note Subjective: Sitting up in a recliner at the bedside. Multiple family at the bedside. Denies any c/o CP, palpitations. C/O some dyspnea with exertion. C/O left knee pain. Objective: I&O/Vital Signs 01/27/19 01/27/19 01/27/19 01/27/19 03:54 07:00 08:00 12:00 Temp 99.2 97.3 97.9 Pulse 80 94 88 84 Resp 16 20 20 B/P (MAP) 130/78 (95) 161/80 (107) 145/78 (100) Pulse Ox 95 96 95 O2 Delivery Room Air Room Air Room Air 01/27/19 00:00 Intake Total 760 ml Output Total 425 ml Balance 335 ml Weight (Pounds): 138 Weight (Ounces): 0.0 Weight (Calculated Kilograms): 62.055679 Constitutional: AAO x 3, well-developed, well-nourished Respiratory: No accessory muscle use; other (good bilat air entry, diminished at the bases) Cardiovascular: regular rate-rhythm, S1 and S2, systolic murmur (faint KARLENE at card base) Gastrointestional: No tender; soft; No guarding, No rebound; audible bowel sounds Extremities: other (leg brace in place to LLE); No clubbing, No cyanosis, No significant edema Neurologic/Psychiatric: grossly intact (able to move all limbs, but we did not attempt motion at knees or ankles because of pain) Skin: No rash on exposed areas, No ulcerations on exposed areas Results/Procedures: Labs Laboratory Tests 01/27/19 05:28: White Blood Count 15.6H, Red Blood Count 5.21, Hemoglobin 12.4, Hematocrit 39, Mean Corpuscular Volume 75L, Mean Corpuscular Hemoglobin 24L, Mean Corpuscular Hemoglobin Concent 32, Red Cell Distribution Width 18.9H, Platelet Count 377, Mean Platelet Volume 11.5H, Neutrophils (%) (Auto) 67, Lymphocytes (%) (Auto) 15 , Monocytes (%) (Auto) 18H, Eosinophils (%) (Auto) 0, Basophils (%) (Auto) 0, Neutrophils # (Auto) 10.4H, Lymphocytes # (Auto) 2.3, Monocytes # (Auto) 2.8H, Eosinophils # (Auto) 0.0, Basophils # (Auto) 0.0, Sodium Level 133L, Potassium Level 3.9, Chloride Level 103, Carbon Dioxide Level 20L, Anion Gap 10, Blood Urea Nitrogen 8, Creatinine 0.48L, Estimat Glomerular Filtration Rate > 60, BUN/ Creatinine Ratio 17, Glucose Level 88, Calcium Level 8.6 Microbiology 01/23/19 Blood Culture - Preliminary, Resulted No growth 01/24/19 Influenza Types A,B Antigen (YIFAN) - Final, Complete 01/23/19 Urine Culture - Final, Complete Escherichia coli A/P: Assessment: Ac NSTEMI Ischemic cardiomyopathy. Echo of 01/26/19 showed anteroseptal and apical hypokinesis, LVEF 35-40%, grade I hernandez dysfunction, PASP 40 mmHg, mod MR, mild to mod TR Syncope in Dec 2018, per patient and family description T-12 fracture in Dec 2018 due to syncopal fall (as stated by her family) This admission with L knee pain and R ankle pain of unclear etiology - Managed by Hospitalist and Ortho Svces Leucocytosis of unclear etiology - Managed by Hospitalist Svce Hypertension Incomplete LBBB on ECG, apparently chronic (pt reports a h/o abn ECG in the past ) Plan: * Continue therapy with bb and DAPT * Continue statin and TWYLA (-) * Dr. Weinstein has discussed echo results and treatment options with pt and family , including invasive options. They are considering Physician Assessment Physician Assessment No cp or palp or syncope. Mod exertional shortness of breath and gen malaise and weakness Cor: reg Lungs: fair to good air entry, diminished at the bases Ext: no c/c; mild leg edema A&R * As documented in our note above that I updated (italics) and as noted below * Continue current regimen * Monitor labs * I had a long and detailed discussion with the patient, her son, and her two daughters regarding cardiac findings and options for further work up / treatment * Invasive and noninvasive management options were reviewed * We discussed rationale, procedures, risks, benefits, potential complications, and alternatives of card cath and possible ad hoc cor intervention * She understands her options and wishes to proceed with card cath. Questions answered MARIBETH CHAVEZ ADMINISTRATION MANAGER Jan 27, 2019 10:03 VICKI WEINSTEIN MD [facility] Jan 27, 2019 13:38
--- NOTE | 2019-01-27 10:27 | Speech Therapy Progress Note ---
Therapy Progress Note The patient had orders to be evaluated for cognitive status. She was screened and demo the ability to answer questions relevant to her immediate situation/ needs with 100% accuracy. The patient's family was present and able to verify her answers. Patient does not require skilled services at this time. HUMBERTO BERRIOS Jan 27, 2019 10:27
[2019-01-27 12:00] VITALS: BP 145/78
[2019-01-27] MEDS: cefTRIAXone 1,000 MG/SWFI 10 ML IV PUSH IV SCH ×2 (13:35)
[2019-01-27] MEDS: ENOXAPARIN 40 MG/0.4 ML (LOVENOX) SYR SC SCH (13:35)
--- NOTE | 2019-01-27 14:34 | Progress Note-Hospitalist ---
Progress Note Progress Notes/Assess & Plan Date Seen 01/27/19 Time Seen by Provider: 14:30 Assessment & Plan The patient is an 83-year-old white female admitted 4 days ago after a fall. She suffered pain in her left knee and also pain in the right ankle. She is not very clear about the mechanism of the fall although states that she fell on open for inside. She was not able to determine how long she might have been down. She reports a hematoma on the back of the head. About 2 weeks ago she had fallen and apparently suffered a thoracic vertebral fracture. At this time she also exhibited symptoms. Consistent with sepsis and was found to have a urinary tract infection. This is growing Escherichia coli which was widely sensitive. She and her family states she is to have a cardiac angioplasty tomorrow. Physical exam: She is alert and pleasant. Lungs are clear to auscultation. CV is regular without murmur. Abdomen is soft. Extremities show no pedal edema. Impression: Urinary tract infection with Escherichia coli. 2.pain out of proportion to knee findings. 3.repeated falls. Plan: Continue Rocephin. Await angiography tomorrow. AARON SINGH MD Jan 27, 2019 14:34
[2019-01-27 16:00] VITALS: BP 139/67
[2019-01-27 19:06] VITALS: BP 148/72
[2019-01-27] MEDS: ATORVASTATIN 40 MG (LIPITOR) TABLET PO SCH (20:30)
[2019-01-28] VITALS (40 sets, daily range): BP systolic 108–182; BP diastolic 68–102
[2019-01-28] MEDS: NS IV 1000 ML 1,000 ML IV SCH ×3 (01:11→21:37)
[2019-01-28] MEDS: LACTOBACILLUS ACIDOPHILUS (PROBIOTIC) CAPSULE PO SCH ×3 (04:51→18:22)
--- NOTE | 2019-01-28 05:09 | NUR ---
This RN called Dr. Angulo in reference to the patient having significant rectal bleeding. Patient called this RN in the room to state that she thought she had a bowel movement. Patient had a very large clot. When patient was rolled, bright red blood was streaming out of the rectum. Patient is also passing several large blood clots. Dr. Angulo ordered to stop all blood thinners and to consult surgery. Addendum: 01/28/19 at 0538 by TEE MACIEL RN Dr. Angulo also ordered a stat CBC
--- NOTE | 2019-01-28 05:13 | NUR ---
This RN called Dr. Arevalo in reference to a consult for rectal bleeding. Information on previous note is relayed to Dr. Arevalo. Dr. Arevalo ordered a stat type and cross. Dr. Arevalo states to monitor patient.
--- NOTE | 2019-01-28 05:17 | NUR ---
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 supervisor car installations calls Dr. Arevalo at 05:26. At 05:31 Dr. Arevalo called Sl[facility] T[employer] back to talk about hemodynamics. Dr. Arevalo was unable to get ahold of Dr. Angulo and he stated that he was going to try and talk to Dr. Weinstein.
--- NOTE | 2019-01-28 05:30 | NUR ---
This RN tried to call Dr. Angulo with no answer.
[2019-01-28 05:39] LABS: BASOPHILS % (AUTO) 0 % (0-10); EOSINOPHILS # (AUTO) 0.1 10^3/uL (0.0-0.3); EOSINOPHILS % (AUTO) 0 % (0-10); HEMATOCRIT 40 % (35-52); LYMPHOCYTES # (AUTO) 2.2 X 10^3 (1.0-4.0); LYMPHOCYTES % (AUTO) 17 % (12-44); MEAN CORPUSCULAR HEMOGLOBIN 24 PG (25-34); MEAN CORPUSCULAR HGB CONC 32 G/DL (32-36); MEAN CORPUSCULAR VOLUME 75 FL (80-99); MEAN PLATELET VOLUME 11.2 FL (7.4-10.4); MONOCYTES # (AUTO) 2.5 X 10^3 (0.0-1.0); MONOCYTES % (AUTO) 19 % (0-12); NEUTROPHILS # (AUTO) 8.3 X 10^3 (1.8-7.8); NEUTROPHILS % (AUTO) 64 % (42-75); PLATELET COUNT 490 10^3/uL (130-400); RED CELL DISTRIBUTION WIDTH 19.3 % (10.0-14.5); WHITE BLOOD COUNT 13.1 10^3/uL (4.3-11.0)
--- NOTE | 2019-01-28 06:32 | NUR ---
This RN paged Dr. Weinstein to update him on patient status. Dr. Weinstein ordered to cancel the heart cath.
[2019-01-28] MEDS ORDERED: NS IV 1000 ML 0 ML ONE (06:44)
[2019-01-28] MEDS ORDERED: HEParin 1000 UNIT/ML (10ML VIAL) FOR BOLUS ONE (06:44)
[2019-01-28] MEDS ORDERED: LIDOCAINE 1% INJ 20 ML 20 ML VIAL ONE (06:44)
--- NOTE | 2019-01-28 06:47 | NUR ---
Dr. Arevalo called this RN to advise that he had spoke with Dr. Angulo. Dr Arevalo states that the patient needs a service not provided here and needs transfer to . Dr. Arevalo states that Dr. Angulo is on his way in to speak with the family about treatment options.
[2019-01-28 06:48] LABS: HEMOGLOBIN 11.9 G/DL (11.5-16.0)
--- NOTE | 2019-01-28 08:08 | Progress Note-Hospitalist ---
Progress Note Progress Notes/Assess & Plan Date Seen 01/28/19 Time Seen by Provider: 08:03 Assessment & Plan The patient was to have a coronary angiogram today as she had been found to have an elevated troponin. Early this morning she and the nurses noted a relatively steady flow of bright red blood from her rectum. She had been on Lovenox in preparation for the angiogram. In addition she was chronically on Plavix and aspirin. Initially her hemoglobin was 13. It has been going down slowly on repeat assays. Her blood pressure has dropped as well. Her family is in attendance at this time and discussions were held relative to what was available. It was recommended that she be transferred for consideration of interventional radiology and embolization as reversing the antiplatelet effect was not really possible. After discussion her 3 children agreed that we should arrange transfer most likely to [facility] in order to accomplish this. Physical exam the patient was in ICU 7. She was alert and conversant. She reported no pain. Lungs were clear to auscultation CV was regular and rate was in the low 100s. Blood pressure was in the 110/70 range with IV fluids and a unit of blood being administered. Impression: acute and persistent GI bleed, likely large bowel. 2.nondisplaced ST segment elevation FL. 3.urinary tract infection with Escherichia coli. Discuss transfer with [facility]. AARON SINGH MD Jan 28, 2019 08:08
--- NOTE | 2019-01-28 08:25 | Progress Note-Hospitalist ---
Progress Note Progress Notes/Assess & Plan Date Seen 01/28/19 Time Seen by Provider: 08:25 Assessment & Plan Discussed the problem in depth with the transfer nurse at [facility]. They will explore their ability to accept in transfer and call me back. AARON SINGH MD Jan 28, 2019 08:25
--- NOTE | 2019-01-28 08:28 | Physical Therapy Progress Note ---
Therapy Progress Note Patient transferred to ICU secondary to rectal bleed. Probable transfer to [facility]. PT will continue to monitor patient status. DERICK REDDING PT Jan 28, 2019 08:28
[2019-01-28 10:39] LABS: BASOPHILS % (AUTO) 0 % (0-10); EOSINOPHILS % (AUTO) 0 % (0-10); HEMATOCRIT 37 % (35-52); HEMOGLOBIN 12.1 G/DL (11.5-16.0); LYMPHOCYTES # (AUTO) 1.7 X 10^3 (1.0-4.0); LYMPHOCYTES % (AUTO) 11 % (12-44); MEAN CORPUSCULAR HEMOGLOBIN 25 PG (25-34); MEAN CORPUSCULAR HGB CONC 33 G/DL (32-36); MEAN CORPUSCULAR VOLUME 76 FL (80-99); MEAN PLATELET VOLUME 11.2 FL (7.4-10.4); MONOCYTES # (AUTO) 3.3 X 10^3 (0.0-1.0); MONOCYTES % (AUTO) 21 % (0-12); NEUTROPHILS # (AUTO) 10.8 X 10^3 (1.8-7.8); NEUTROPHILS % (AUTO) 69 % (42-75); PLATELET COUNT 457 10^3/uL (130-400); RED CELL DISTRIBUTION WIDTH 18.3 % (10.0-14.5); WHITE BLOOD COUNT 15.8 10^3/uL (4.3-11.0)
--- NOTE | 2019-01-28 10:41 | Consultation ---
History of Present Illness History of Present Illness Patient Consulted On(jonathan/time) 01/28/19 10:37 Date Seen by Provider: Jan 28, 2019 Time Seen by Provider: 10:00 Reason for Visit: UTI History of Present Illness Patient currently admitted with UTI, being managed on IV antibiotics, found to have EKG abnormalities, warranting cardiac catheterization, that was planned for this morning. I received a phone call about 6 a.m. this morning regarding perfuse rectal bleeding. She has since been transferred to the intensive care unit for better hemodynamic monitoring and management. Denies ever having undergone colonoscopy in the past. Currently, she is on dual antiplatelet therapy in view of the current cardiac event.at the time of my examination, the bleeding has slowed/stopped and she has maintained reasonable hemodynamic stability. Allergies and Home Medications Allergies Coded Allergies: Penicillins (Verified Allergy, Severe, HIVES, 11/04/16) sulfamethoxazole (Verified Allergy, Severe, 11/04/16) SEIZURE trimethoprim (Verified Allergy, Severe, 11/04/16) SEIZURE Home Medications Docusate Sodium 100 Mg Capsule, 100 MG PO DAILY, (Reported) Magnesium Oxide 400 Mg Tablet, 400 MG PO DAILY, (Reported) Potassium Gluconate 99 Mg Tablet, 99 MG PO DAILY, (Reported) Tramadol HCl 50 Mg Tablet, 25 MG PO Q6H PRN for PAIN-MODERATE, (Reported) Patient Home Medication List Home Medication List Reviewed: Yes Past Rjgozxh-Vskzpv-Mxkdkn Hx Past Med/Social Hx: Reviewed and Corrections made Patient Social History Alcohol Use: Denies Use Recreational Drug Use: No Smoking Status: Never a Smoker Recent Foreign Travel: No Contact w/Someone Who Travel: No Recent Infectious Disease Expo: No Recent Hopitalizations: No Immunizations Up To Date Tetanus Booster (TDap): Unknown PED Vaccines UTD: Yes Seasonal Allergies Seasonal Allergies: Yes Past Medical History Surgeries: Yes Appendectomy, Hysterectomy, Tubal Ligation Respiratory: No Currently Using CPAP: No Currently Using BIPAP: No Cardiac: Yes (WAS TOLD THIS 2016 ( SHE DIDN'T KNOW ABOUT IT )) Heart Attack Neurological: No : No Reproductive Disorders: No Female Reproductive Disorders: Denies Sexually Transmitted Disease: No HIV/AIDS: No Genitourinary: No Gastrointestinal: No Musculoskeletal: Yes (KNEE PAIN) Osteoporosis, Arthritis, Back Injury, Chronic Back Pain, Fractures, Gout Endocrine: Yes Lupus HEENT: No Loss of Vision: Denies Hearing Impairment: Hard of Hearing Cancer: No Psychosocial: No Integumentary: Yes (RASHES FROM LUPUS) Blood Disorders: No Adverse Reaction/Blood Tranf: No Family Medical History Asthma 19 FATHER Diabetes mellitus 19 FATHER 19 MOTHER G8 SISTER Hypertension 19 MOTHER Myocardial infarction 19 FATHER ( AT 62 FROM [place]) Neoplasm 19 MOTHER (BREAST CANCER WITH MASTECTOMY) Review of Systems-General Constitutional: weakness Respiratory: no symptoms reported Cardiovascular: see HPI Gastrointestinal: see HPI Genitourinary: see HPI Musculoskeletal: back pain, joint pain Skin: no symptoms reported Psychiatric/Neurological: No Symptoms Reported Physical Exam-General Problems Physical Exam Vital Signs Vital Signs - First Documented 01/23/19 01/23/19 01/28/19 10:10 17:07 08:00 Temp 98.2 Pulse 110 Resp 22 B/P (MAP) 180/120 (140) Pulse Ox 97 O2 Delivery Room Air O2 Flow Rate 2.00 FiO2 98 Capillary Refill : Less Than 3 SecondsLess Than 3 Seconds General Appearance: no apparent distress Cardiovascular: regular rate, rhythm Gastrointestinal: non tender, soft, other Rectal: deferred Neurologic/Psychiatric: alert, oriented x 3 Skin: warm/dry Comments midline and a right lower quadrant scar resulting from previous open hysterectomy and appendectomy. No obvious incisional hernia. Assessment/Plan Assessment/Plan Admission Diagnosis/Plan lady with possible acute myocardial infarction, cardiac catheterization on hold. GI bleeding possibly lower GI. Currently stable. I have offered bowel preparation in anticipation of colonoscopy with concomitant upper endoscopy. If , during this process, the severity of her bleeding increases, consideration for angioembolization would be made. I have discussed these implications with the patient and her family members, who appeared to comprehend. Clinical Quality Measures DVT/VTE Risk/Contraindication: Risk Factor Score Per Nursin RFS Level Per Nursing on Admit: 4+=Very High JOSE CHANDRA MD Jan 28, 2019 10:41
[2019-01-28] MEDS ORDERED: MAGNESIUM CITRATE 300 ML BTL PO NR ×2 (10:45→18:00)
--- NOTE | 2019-01-28 11:23 | Progress Note-Cardiology ---
Cardiology SOAP Progress Note Subjective: Large amount of bright red blood per rectum this am No cp or palp or syncope or shortness of breath at rest Objective: I&O/Vital Signs 01/28/19 01/28/19 01/28/19 01/28/19 00:00 01:00 04:00 05:11 Temp 97.6 99.7 Pulse 86 84 92 100 Resp 18 18 B/P (MAP) 154/73 (100) 182/84 (116) 164/85 (111) Pulse Ox 94 94 O2 Delivery Room Air Room Air 01/28/19 01/28/19 01/28/19 01/28/19 05:16 05:21 05:26 05:31 Pulse 101 100 102 101 B/P (MAP) 154/90 (111) 138/88 (105) 161/87 (111) 157/88 (111) 01/28/19 01/28/19 01/28/19 01/28/19 05:36 05:41 05:46 05:51 Pulse 102 101 102 102 B/P (MAP) 156/78 (104) 154/81 (105) 152/82 (105) 147/88 (107) 01/28/19 01/28/19 01/28/19 01/28/19 05:58 06:01 06:06 06:11 Pulse 104 104 104 110 B/P (MAP) 148/80 (102) 140/81 (100) 141/83 (102) 133/73 (93) 01/28/19 01/28/19 01/28/19 01/28/19 06:16 06:21 06:26 06:36 Pulse 108 111 108 108 B/P (MAP) 137/79 (98) 141/81 (101) 127/71 (89) 121/69 (86) Pulse Ox 97 01/28/19 01/28/19 01/28/19 01/28/19 06:40 07:00 07:45 07:51 Temp 99.5 Pulse 105 116 98 106 Resp 15 11 B/P (MAP) 115/68 (84) 111/90 (97) 111/90 Pulse Ox 97 98 O2 Delivery Room Air 01/28/19 01/28/19 01/28/19 01/28/19 08:00 08:00 08:30 09:00 Temp 98.8 99.6 Pulse 105 100 100 96 Resp 15 14 13 B/P (MAP) 108/70 (83) 129/79 144/102 (116) Pulse Ox 97 100 O2 Delivery Nasal Cannula Nasal Cannula O2 Flow Rate 2.00 FiO2 98 01/28/19 01/28/19 09:17 09:33 Temp 99.4 99.1 Pulse 98 98 Resp 12 B/P (MAP) 144/87 135/81 O2 Delivery Nasal Cannula O2 Flow Rate 2.00 01/28/19 00:00 Intake Total 750 ml Output Total 725 ml Balance 25 ml Weight (Pounds): 138 Weight (Ounces): 0.0 Weight (Calculated Kilograms): 62.384712 Constitutional: AAO x 3, well-developed, well-nourished Respiratory: No accessory muscle use; other (good bilat air entry, diminished at the bases) Cardiovascular: regular rate-rhythm, S1 and S2, systolic murmur (faint KARLENE at card base) Gastrointestional: No tender; soft; No guarding, No rebound; audible bowel sounds Extremities: other (leg brace in place to LLE); No clubbing, No cyanosis, No significant edema Neurologic/Psychiatric: grossly intact (able to move all limbs, but we did not attempt motion at knees or ankles because of pain) Skin: No rash on exposed areas, No ulcerations on exposed areas Results/Procedures: Labs Laboratory Tests 01/28/19 05:30: White Blood Count 13.1H, Red Blood Count 5.36, Hemoglobin 13.0, Hematocrit 40, Mean Corpuscular Volume 75L, Mean Corpuscular Hemoglobin 24L, Mean Corpuscular Hemoglobin Concent 32, Red Cell Distribution Width 19.3H, Platelet Count 490H, Mean Platelet Volume 11.2H, Neutrophils (%) (Auto) 64, Lymphocytes (%) (Auto) 17 , Monocytes (%) (Auto) 19H, Eosinophils (%) (Auto) 0, Basophils (%) (Auto) 0, Neutrophils # (Auto) 8.3H, Lymphocytes # (Auto) 2.2, Monocytes # (Auto) 2.5H, Eosinophils # (Auto) 0.1, Basophils # (Auto) 0.0 01/28/19 06:40: Hemoglobin 11.9, Hematocrit 37 01/28/19 10:32: White Blood Count 15.8H, Red Blood Count 4.87, Hemoglobin 12.1, Hematocrit 37, Mean Corpuscular Volume 76L, Mean Corpuscular Hemoglobin 25, Mean Corpuscular Hemoglobin Concent 33, Red Cell Distribution Width 18.3H, Platelet Count 457H, Mean Platelet Volume 11.2H, Neutrophils (%) (Auto) 69, Lymphocytes (%) (Auto) 11L, Monocytes (%) (Auto) 21H, Eosinophils (%) (Auto) 0, Basophils (%) (Auto) 0 , Neutrophils # (Auto) 10.8H, Lymphocytes # (Auto) 1.7, Monocytes # (Auto) 3.3H , Eosinophils # (Auto) 0.0, Basophils # (Auto) 0.0 Microbiology 01/23/19 Blood Culture - Preliminary, Resulted No growth 01/24/19 Influenza Types A,B Antigen (YIFAN) - Final, Complete 01/23/19 Urine Culture - Final, Complete Escherichia coli Laboratory Tests 01/27/19 05:28 01/28/19 05:30 01/28/19 06:40 01/28/19 10:32 A/P: Assessment: Hematochezia (large) on 01/28/19 Recent (January 2019) NSTEMI Ischemic cardiomyopathy. Echo of 01/26/19 showed anteroseptal and apical hypokinesis, LVEF 35-40%, grade I hernandez dysfunction, PASP 40 mmHg, mod MR, mild to mod TR Syncope in Dec 2018, per patient and family description T-12 fracture in Dec 2018 due to syncopal fall (as stated by her family) This admission with L knee pain and R ankle pain of unclear etiology - Managed by Hospitalist and Ortho Svces Leucocytosis of unclear etiology - Managed by Hospitalist Svce Hypertension Incomplete LBBB on ECG, apparently chronic (pt reports a h/o abn ECG in the past ) Plan: * Complex management * Have had to stop DAPT and enoxaparin due to large GI bleed * I have discussed her case in detail with Dr Bay and Dr Arevalo today * I have discussed her CV and other issues (including acute, large GI bleed) with her, her son, and one of her daughters * Card cath has been postponed. Pt and family don't think that pt would be able to take any ASA or similar agents. Therefore, cor intervention does not seem to be a good idea * After consideration of options, pt and family are requesting conservative management for CAD and ischemic cm * She has been transferred to ICU * We recommend close clinical and lab f/u VICKI BEST MD FACP FAC CCDS Jan 28, 2019 11:23
[2019-01-28] MEDS: lisINopril 5 MG (PRINIVIL) TABLET PO SCH (11:24)
[2019-01-28] MEDS: meTOprolol SUCCINATE 100 MG (TOPROL XL) TAB PO SCH (11:24)
[2019-01-28] MEDS: fentaNYL INJECTION 100 MCG/2 ML AMP IVP PRN ×3 (13:44→22:21)
[2019-01-28] MEDS: cefTRIAXone 1,000 MG/SWFI 10 ML IV PUSH IV SCH ×4 (16:00→16:01)
[2019-01-28 16:58] LABS: HEMOGLOBIN 11.5 G/DL (11.5-16.0)
[2019-01-28] MEDS: ATORVASTATIN 40 MG (LIPITOR) TABLET PO SCH (20:47)
[2019-01-29] VITALS (21 sets, daily range): BP systolic 101–160; BP diastolic 47–106
[2019-01-29] MEDS: fentaNYL INJECTION 100 MCG/2 ML AMP IVP PRN ×4 (00:29→16:41)
[2019-01-29 04:01] LABS: BASOPHILS % (AUTO) 0 % (0-10); EOSINOPHILS % (AUTO) 0 % (0-10); HEMATOCRIT 33 % (35-52); HEMOGLOBIN 10.7 G/DL (11.5-16.0); LYMPHOCYTES # (AUTO) 2.3 X 10^3 (1.0-4.0); LYMPHOCYTES % (AUTO) 15 % (12-44); MEAN CORPUSCULAR HEMOGLOBIN 25 PG (25-34); MEAN CORPUSCULAR HGB CONC 32 G/DL (32-36); MEAN CORPUSCULAR VOLUME 78 FL (80-99); MEAN PLATELET VOLUME 11.2 FL (7.4-10.4); MONOCYTES # (AUTO) 2.9 X 10^3 (0.0-1.0); MONOCYTES % (AUTO) 20 % (0-12); NEUTROPHILS # (AUTO) 9.5 X 10^3 (1.8-7.8); NEUTROPHILS % (AUTO) 64 % (42-75); PLATELET COUNT 428 10^3/uL (130-400); WHITE BLOOD COUNT 14.7 10^3/uL (4.3-11.0)
[2019-01-29 04:27] LABS: BUN/CREATININE RATIO 19; CALCIUM 7.9 MG/DL (8.5-10.1); CARBON DIOXIDE 21 MMOL/L (21-32); CHLORIDE 108 MMOL/L (98-107); CREATININE SERUM 0.43 MG/DL (0.60-1.30); GFR ESTIMATED > 60; GLUCOSE 98 MG/DL (70-105); MAGNESIUM 1.9 MG/DL (1.8-2.4); PHOSPHORUS 1.9 MG/DL (2.3-4.7); POTASSIUM 3.4 MMOL/L (3.6-5.0); SODIUM 136 MMOL/L (135-145)
[2019-01-29] MEDS: POTASSIUM CL 10MEQ/50ML IVPB 50 ML IV SCH ×2 (04:39→05:41)
[2019-01-29 04:54] LABS: BAND NEUTROPHILS 0 %; BASOPHILS % (MANUAL) 0 %; EOSINOPHILS % (MANUAL) 0 %; LYMPHOCYTES % (MANUAL) 9 %; MONOCYTES % (MANUAL) 16 %; NEUTROPHILS % (MANUAL) 69 %; REACTIVE LYMPHOCYTES 6 %
[2019-01-29 04:55] LABS: ANISOCYTOSIS MODERATE; HYPOCHROMASIA SLIGHT; POLYCHROMASIA SLIGHT
[2019-01-29] MEDS ORDERED: POTASSIUM PHOSPHATE INJ 30 MM in NS (IVPB) 250 ML IV ONE (05:15)
--- NOTE | 2019-01-29 05:15 | Pulmonary Consultation ---
History of Present Illness History of Present Illness Date of Consultation 01/29/19 05:10 Time Seen by Provider: 05:19 Date of Admission Reason for Visit: UTI Allergies and Home Medications Allergies Coded Allergies: Penicillins (Verified Allergy, Severe, HIVES, 11/04/16) sulfamethoxazole (Verified Allergy, Severe, 11/04/16) SEIZURE trimethoprim (Verified Allergy, Severe, 11/04/16) SEIZURE Home Medications Docusate Sodium 100 Mg Capsule, 100 MG PO DAILY, (Reported) Magnesium Oxide 400 Mg Tablet, 400 MG PO DAILY, (Reported) Potassium Gluconate 99 Mg Tablet, 99 MG PO DAILY, (Reported) Tramadol HCl 50 Mg Tablet, 25 MG PO Q6H PRN for PAIN-MODERATE, (Reported) Past Rfbplew-Ualntf-Mfguch Hx Past Med/Social Hx: Reviewed and Corrections made Patient Social History Alcohol Use: Denies Use Recreational Drug Use: No Smoking Status: Never a Smoker Recent Foreign Travel: No Contact w/Someone Who Travel: No Recent Infectious Disease Expo: No Recent Hopitalizations: No Immunizations Up To Date Tetanus Booster (TDap): Unknown PED Vaccines UTD: Yes Seasonal Allergies Seasonal Allergies: Yes Past Medical History Surgeries: Yes Appendectomy, Hysterectomy, Tubal Ligation Respiratory: No Currently Using CPAP: No Currently Using BIPAP: No Cardiac: Yes (WAS TOLD THIS 2016 ( SHE DIDN'T KNOW ABOUT IT )) Heart Attack Neurological: No : No Reproductive Disorders: No Female Reproductive Disorders: Denies Sexually Transmitted Disease: No HIV/AIDS: No Genitourinary: No Gastrointestinal: No Musculoskeletal: Yes (KNEE PAIN) Osteoporosis, Arthritis, Back Injury, Chronic Back Pain, Fractures, Gout Endocrine: Yes Lupus HEENT: No Loss of Vision: Denies Hearing Impairment: Hard of Hearing Cancer: No Psychosocial: No Integumentary: Yes (RASHES FROM LUPUS) Blood Disorders: No Adverse Reaction/Blood Tranf: No Family Medical History Asthma 19 FATHER Diabetes mellitus 19 FATHER 19 MOTHER G8 SISTER Hypertension 19 MOTHER Myocardial infarction 19 FATHER ( AT 62 FROM [place]) Neoplasm 19 MOTHER (BREAST CANCER WITH MASTECTOMY) Review of Systems Time Seen by Provider: 05:18 Constitutional: Sweats, Weakness, Malaise; No: Fever, Chills, Other Eyes: No: Pain, Vision change, Conjunctivae inflammation, Eyelid inflammation, Other, Redness ENT: Nose congestion Respiratory: No: Cough, Dry, Shortness of breath, SOB with excertion, Wheezing , Hemoptysis, Pleuritic Pain, Sputum, Wheezing, Other Cardiovascular: Edema; No: Chest Pain, Palpitations, Orthopnea, Paroxysmal Noc. Dyspnea, Lt Headedness, Other Neurological: Weakness, Incoordination Sepsis Event Evaluation Height, Weight, BMI Height: 5'1.00" Weight: 138lbs. 0.0oz. 62.111151ju; 26.1 BMI Method:Stated Exam Exam Vital Signs Date Time Temp Pulse Resp B/P (MAP) Pulse Ox O2 Delivery O2 Flow Rate FiO2 01/29/19 04:00 101 16 150/71 (97) 96 Room Air 01/29/19 04:00 Room Air 01/29/19 03:00 100 14 133/68 (89) 94 Room Air 01/29/19 02:00 101 13 128/72 (90) 92 Room Air 01/29/19 01:00 104 14 128/72 (90) 93 Room Air 01/29/19 01:00 104 01/29/19 00:00 Room Air 01/29/19 00:00 102 21 151/81 (104) 96 Room Air 01/29/19 00:00 98.6 01/28/19 23:00 109 21 147/87 (107) 94 Room Air 01/28/19 22:00 104 18 140/82 (101) 95 Room Air 01/28/19 21:00 Room Air 01/28/19 21:00 101 13 143/72 (95) 96 Room Air 01/28/19 20:00 104 23 147/89 (108) 95 Room Air 01/28/19 19:45 97.6 01/28/19 19:00 101 01/28/19 19:00 101 18 148/85 (106) Nasal Cannula 2.00 01/28/19 17:00 99 15 152/79 (103) Nasal Cannula 2.00 01/28/19 16:00 97 5 154/87 (109) Nasal Cannula 2.00 01/28/19 15:00 98 18 148/86 (106) Nasal Cannula 2.00 01/28/19 14:00 104 13 154/90 (111) Nasal Cannula 2.00 01/28/19 13:00 99 5 148/88 (108) Nasal Cannula 2.00 01/28/19 13:00 100 01/28/19 12:00 96 22 151/91 (111) 96 Nasal Cannula 2.00 01/28/19 11:00 95 23 143/83 (103) 94 Nasal Cannula 2.00 01/28/19 10:00 98 19 140/95 (110) 98 Nasal Cannula 2.00 01/28/19 09:33 99.1 98 135/81 01/28/19 09:17 99.4 98 12 144/87 Nasal Cannula 2.00 01/28/19 09:00 Room Air 01/28/19 09:00 96 13 144/102 (116) 100 Nasal Cannula 2.00 01/28/19 08:30 99.6 100 14 129/79 Nasal Cannula 01/28/19 08:00 98.8 100 Nasal Cannula 2.00 98 01/28/19 08:00 105 15 108/70 (83) 97 Nasal Cannula 2.00 01/28/19 07:51 99.5 106 11 111/90 98 Room Air 01/28/19 07:45 98 15 111/90 (97) 97 Nasal Cannula 2.00 01/28/19 07:00 116 01/28/19 06:40 105 115/68 (84) 01/28/19 06:36 108 121/69 (86) 01/28/19 06:26 108 127/71 (89) 01/28/19 06:21 111 141/81 (101) 01/28/19 06:16 108 137/79 (98) 97 01/28/19 06:11 110 133/73 (93) 01/28/19 06:06 104 141/83 (102) 01/28/19 06:01 104 140/81 (100) 01/28/19 05:58 104 148/80 (102) 01/28/19 05:51 102 147/88 (107) 01/28/19 05:46 102 152/82 (105) 01/28/19 05:41 101 154/81 (105) 01/28/19 05:36 102 156/78 (104) 01/28/19 05:31 101 157/88 (111) 01/28/19 05:26 102 161/87 (111) 01/28/19 05:21 100 138/88 (105) 01/28/19 05:16 101 154/90 (111) 01/28/19 05:11 100 164/85 (111) I & O 01/29/19 07:00 Intake Total 1550 ml Output Total 1025 ml Balance 525 ml Height & Weight Height: 5'1.00" Weight: 138lbs. 0.0oz. 62.646798ad; 26.1 BMI Method:Stated General Appearance: No Apparent Distress, Chronically ill Respiratory: Lungs Clear, No Accessory Muscle Use, No Respiratory Distress Cardiovascular: Regular Rate, Rhythm, No JVD, No Murmur Capillary Refill: Less Than 3 Seconds Gastrointestinal: non tender, soft, other Extremity: Other (swelling without erythema around left knee, patella remains laterally and anteriorly displaced) Neurologic/Psychiatric: Alert, Disoriented Skin: Normal Color, Warm/Dry Results Lab Laboratory Tests 01/27/19 05:28 01/28/19 05:30 01/28/19 06:40 01/28/19 10:32 01/28/19 16:53 01/29/19 03:35 Assessment/Plan Assessment/Plan Acute GIB s/p transfusion -Monitor H&H -IVF -Arevalo is planning a colonoscopy -Check coags Hypotension -IVF currently NS at 100cc/hr -Monitor STEMI -Cardiology following -Conservative tx per family S/p fall with multiple fractures Ischemic cardiomyopathy and grad 1 diastolic dysfunction -echo with EF of 35-40% SUSAN AMARAL DO Jan 29, 2019 05:15
[2019-01-29 05:31] LABS: INR 1.3 (0.8-1.4); PROTHROMBIN TIME PATIENT 15.7 SEC (12.2-14.7)
[2019-01-29] MEDS: NS IV 1000 ML 1,000 ML IV SCH ×2 (05:43→07:14)
[2019-01-29] MEDS ORDERED: MAGNESIUM CITRATE 300 ML BTL PO NR (06:00)
[2019-01-29] MEDS ORDERED: MAGNESIUM 1 GM/100 ML IVPB 100 ML IV SCH (06:00)
[2019-01-29] MEDS ORDERED: KCL 20 MEQ TAB (K-DUR) PO SCH (06:00)
[2019-01-29] MEDS ORDERED: POTASSIUM CL 10MEQ/50ML IVPB 50 ML IV SCH (06:00)
[2019-01-29 06:49] LABS: HEMOGLOBIN 10.5 G/DL (11.5-16.0)
[2019-01-29] MEDS: LACTOBACILLUS ACIDOPHILUS (PROBIOTIC) CAPSULE PO SCH ×3 (06:49→17:18)
--- NOTE | 2019-01-29 08:34 | Diagnostic Imaging Report ---
Indication: Sepsis. Time of exam 3:12 AM No prior chest radiographs are available for comparison. The heart size is normal. There may be some infiltrate in the left base. There is some obscuration of the left hemidiaphragm. The right lung is clear. The pulmonary vascularity is normal. No effusion or pneumothorax is seen. Impression: Findings suggestive of left basilar infiltrate or atelectasis. Dictated by: Dictated on workstation # [id number]
[2019-01-29] MEDS: PANTOPRAZOLE 40 MG (PROTONIX) VIAL IV SCH (08:40)
[2019-01-29] MEDS: meTOprolol SUCCINATE 100 MG (TOPROL XL) TAB PO SCH (08:40)
--- NOTE | 2019-01-29 09:00 | Physical Therapy Progress Note ---
Therapy Progress Note 0831 Nurse Camacho in with pt and reports that pt will be having a colonoscopy this morning and doesn't think PT would be advisable this morning. Will check on pt status later. BUBBA CARRILLO PT Jan 29, 2019 08:59
[2019-01-29] MEDS ORDERED: FENTANYL PATCH REMOVAL TP SCH (11:14)
--- NOTE | 2019-01-29 11:14 | Progress Note-Hospitalist ---
Subjective HPI/CC On Admission Date Seen by Provider: Jan 29, 2019 Time Seen by Provider: 10:00 Pt is an 83yoCF with a PMH lupus, CAD, and chronic back pain who presented to the ER with a CC of back pain, knee pain, and weakness. She was seen in the ER on 01/07 after a fall and was found to have a T12 compression fracture. She was discharged home and did relatively well ambulating with a walker until 3 days ago when her mobility worsened. Today she was unable to get out of bed so her daughter called EMS to bring her to the ER for evaluation. She was found to have a UTI and meet sepsis criteria and was admitted for further management. She complains of severe knee pain as well. Subjective/Events-last exam Pt preparing for EGD and Colonoscopy by Dr. Arevalo. Will go to [facility] at discharge. Overall feeling well and having no new complaints. Will await for cardiology recommendations for elevated troponin. Overall very frail status and appears to have the beginning stages of dementia. Review of Systems General: Fatigue Objective Exam Vital Signs Vital Signs Date Time Temp Pulse Resp B/P (MAP) Pulse Ox O2 Delivery O2 Flow Rate FiO2 01/29/19 18:00 87 12 118/106 (110) 94 Room Air 01/29/19 04:00 98.5 01/28/19 19:00 2.00 01/28/19 08:00 98 Capillary Refill : Less Than 3 SecondsLess Than 3 Seconds General Appearance: No Apparent Distress, WD/WN, Chronically ill Respiratory: Lungs Clear, Normal Breath Sounds, No Accessory Muscle Use, No Respiratory Distress Cardiovascular: Regular Rate, Rhythm, No JVD, No Murmur Gastrointestinal: Normal Bowel Sounds, Non Tender, Soft Genital/Rectal: Other (catheter in place) Extremity: Other (swelling without erythema around left knee, patella remains laterally and anteriorly displaced) Neurologic/Psychiatric: Alert, Disoriented Skin: Normal Color, Warm/Dry Results/Procedures Lab Laboratory Tests 01/29/19 03:35 01/29/19 06:43 Patient resulted labs reviewed. Imaging: Reviewed Imaging Report Assessment/Plan Assessment and Plan Assess & Plan/Chief Complaint Assessment: Acute GIB s/p transfusion Hypotension STEMI s/p fall with multiple fractures Ischemic cardiomyopathy Cognitive decline noted Debility will require NHP Plan: Endoscopies today [facility] Sunday Monitor BP Diagnosis/Problems Diagnosis/Problems (1) GI bleed Status: Acute Qualifiers: GI bleed type/associated pathology: unspecified gastrointestinal hemorrhage type Qualified Codes: K92.2 - Gastrointestinal hemorrhage, unspecified (2) Transfusion of blood during current hospitalization Status: Acute (3) Hypokalemia Status: Acute (4) Elevated troponin Status: Acute (5) Left knee pain Status: Acute Qualifiers: Chronicity: acute Qualified Codes: M25.562 - Pain in left knee (6) Generalized weakness Status: Acute (7) Urinary tract infection Status: Acute Qualifiers: Urinary tract infection type: site unspecified Hematuria presence: without hematuria Qualified Codes: N39.0 - Urinary tract infection, site not specified Clinical Quality Measures DVT/VTE Risk/Contraindication: Risk Factor Score Per Nursin RFS Level Per Nursing on Admit: 4+=Very High DORI WATKINS DO Jan 29, 2019 11:14
[2019-01-29] MEDS: lisINopril 5 MG (PRINIVIL) TABLET PO SCH (12:57)
[2019-01-29] MEDS: cefTRIAXone 1,000 MG/SWFI 10 ML IV PUSH IV SCH ×2 (13:08)
--- NOTE | 2019-01-29 13:36 | Occupational Therapy Eval ---
OT Evaluation-General/PLF Medical Diagnosis Admission Date Jan 23, 2019 at 12:07 Medical Diagnosis: Sepsis, UTI, Knee Pain, Avulsion Fx R Ankle Onset Date: Jan 23, 2019 Therapy Diagnosis Therapy Diagnosis: weakness Height/Weight Height (Feet): 5 Height (Inches): 1.00 Weight (Pounds): 138 Weight (Ounces): 0.0 Precautions Precautions/Isolations: Fall Prevention, Standard Precautions Safety Interventions: Bed Exit Alarm Weight Bear Status Weight Bearing Restriction: Partial Weight Bearing Location Restriction: R LE Rt LE Partial WB, Lf LE : FWB Referral Physician: Dr. Beckford Referral Reason: Activity Tolerance, Self Care, Evaluation/Treatment, Strengthening/ROM Medical History Pertinent Medical History: Arthritis, SC, OA, Renal Insufficiency Reviewed History: Yes Social History Home: Single Level Current Living Status: Alone Entry Into Home: Stairs Without Railing Steps Into Home: 2 ADL-Prior Level of Function Therapy Code Descriptions/Definitions Functional [place] Measure: 0=Not Assessed/NA 4=Minimal Assistance 1=Total Assistance 5=Supervision or Setup 2=Maximal Assistance 6=Modified [place] 3=Moderate Assistance 7=Complete [place] Therapy Quality Codes: 6 Independent with activity with or without an assistive device 5 Patient requires set up or clean up by helper. Patient completes activity by themselves 4 Supervision or touching assist (CGA). [place] provide cues , steadying assist 3 The helper provides less than half the effort to complete the activity 2 The helper provides more than half the effort to complete the activity 1 Dependent. The helper does all the effort to complete an activity 7 Patient refused to complete or attempt activity 9 The patient did not perform the activity before the current illness or injury 88 Not attempted due to Medical conditions or safety concerns Functional Abilities and Goals: Independent: Patient completed the activities by him/herself, with or without an assistive device, with no assistance from a helper. Needed Some Help: Patient needed partial assistance from another person to complete activities. Dependent: A helper completed the activities for the patient. Unknown: Not Applicable: ADL PLOF Comments Pt was living home Alone & was Independent in all ADLs & Mobility with FWW. Quit Driving. Self Care: Independent Functional Cognition: Independent DME/Equipment: Bath Chair, Bedside Commode, Grab Bars Drive Self: No OT Current Status Subjective Pt in bed , alert, cooperative, oriented, in cheerful mood. Pts Son seated with her in room. Agree for OT Assessment . Pain Numeric Pain Scale: 7 Location: Right Location Body Site: Knee Pain Description: Stabbing, Sharp Mental Status/Objective Patient Orientation: Person, Place, Time Attachments: Central Line, Gay Catheter, SCD's, Telemetry Current Glasses/Contacts: Yes Hearing Aids: No Dentures/Partials: Yes Hand Dominance: Right Upper Extremity ROM WFL Upper Extremity Coordination Intact Upper Extremity Sensation Intact Upper Extremity Strength MS in BUE 3/ grossly graded. ADL-Treatment ADL-Current Pt participated in bed mobility, needs max A in supine to sit in bed , pt refused to get out of bed & to sit at the EOB due to severe knee pain. MS in BUE 3/5 grossly graded.. Poor hand filament coil winder. Dependent in all self care tasks , Min A in grooming activity in bed. Therapy Code Descriptions/Definitions Functional [place] Measure: 0=Not Assessed/NA 4=Minimal Assistance 1=Total Assistance 5=Supervision or Setup 2=Maximal Assistance 6=Modified [place] 3=Moderate Assistance 7=Complete [place] Therapy Quality Codes: 6 Independent with activity with or without an assistive device 5 Patient requires set up or clean up by helper. Patient completes activity by themselves 4 Supervision or touching assist (CGA). [place] provide cues , steadying assist 3 The helper provides less than half the effort to complete the activity 2 The helper provides more than half the effort to complete the activity 1 Dependent. The helper does all the effort to complete an activity 7 Patient refused to complete or attempt activity 9 The patient did not perform the activity before the current illness or injury 88 Not attempted due to Medical conditions or safety concerns Eating (FIM): 6 Grooming (FIM): 4 Bathing (FIM): 0 Upper Body Dressing (FIM): 0 Lower Body Dressing (FIM): 0 Toileting (FIM): 0 Transfers (B, C, W/C) (FIM): 0 (Pt refused to get out of bed due to severe acute Rt knee pain.) Toilet/Commode Transfer (FIM): 0 Tub Transfer (FIM): 0 Shower Transfer (FIM): 0 Education OT Patient Education: Correct positioning Teaching Recipient: Patient, Family Teaching Methods: Demonstration Response to Teaching: Verbalize Understanding OT Short Term Goals Short Term Goals Time Frame: Feb 12, 2019 Eating(FIM): 7 Grooming(FIM): 7 Bathing(FIM): 3 (sponge bath) Upper Body Dressing(FIM): 4 Lower Body Dressing(FIM): 3 Toileting(FIM): 5 Transfers (B,C,W/C) (FIM): 3 Toilet/Commode Transfer(FIM): 3 Tub Transfer(FIM): 0 Shower Transfer(FIM): 3 Additional Short Term Goals: 1-Demonstrate ADL Tasks, 2-Verbalize Understanding , 3-ImproveStrength/[place]gr[place] 1=Demonstrate adherence to instructed precautions during ADL tasks. 2=Patient will verbalize/demonstrate understanding of assistive devices/ modifications for ADL. 3=Patient will improve strength/tolerance for activity to enable patient to perform ADL's. OT Retirement Goals House Painter Helper Goals Time Frame: Feb 26, 2019 Eating (FIM): 7 Grooming(FIM): 7 Bathing(FIM): 6 Bathing Location: L Arm, R Arm, L Upper Leg, R Upper Leg, L Lower Leg ( including foot), R Lower Leg (including foot), Chest, Abdomen, Buttocks, Perineal Area Upper Body Dressing(FIM): 7 Lower Body Dressing(FIM): 7 Toileting(FIM): 7 Transfers (B,C,W/C) (FIM): 7 Toilet/Commode Transfer(FIM): 7 Tub Transfer(FIM): 6 Shower Transfer(FIM): 7 Additional Goals: 1-Demonstrate ADL Tasks, 2-Verbalize Understanding, 3- ImproveStrength/Negrito 1=Demonstrate adherence to instructed precautions during ADL tasks. 2=Patient will verbalize/demonstrate understanding of assistive devices/ modifications for ADL. 3=Patient will improve strength/tolerance for activity to enable patient to perform ADL's. OT Education/Plan Problem List/Assessment Assessment: Decreased Activ Tolerance, Decreased Safety Aware, Decreased UE Strength, Dependent Transfers, Impaired Bed Mobility, Impaired Funct Balance, Impaired Self-Care Skills Discharge Recommendations Plan/Recommendations: Continue POC Therapy D/C Recommendations: Home Independently, Homemaker Support Equpiment Recommendations-D/C: Extended Bath Bench, Extended Shower Sprayer, Spray Stainer Patient/Family Goals To return home Independently with AD. Treatment Plan/Plan of Care Treatment,Training & Education: Yes Patient would benefit from OT for education, treatment and training to promote independence in ADL's, mobility, safety and/or upper extremity function for ADL' s. Plan of Care: ADL Retraining, Caregiver Training, Cognitive Retraining, Functional Mobility, UE Funct Exercise/Act, UE Neuromus Re-Ed/Coord Treatment Duration: Feb 26, 2019 Frequency: 5 times per week Estimated Hrs Per Day: .25 hour per day Agreement: Yes Rehab Potential: Fair Time/GCodes Start Time: 13:15 Stop Time: 13:40 Total Time Billed (hr/min): 25 Billed Treatment Time 1 EVM 14 min, FA 11 min. Total 25 min. GARRISON JOHNSON OT Jan 29, 2019 13:36
--- NOTE | 2019-01-29 15:32 | Physical Therapy Daily Note ---
PT Daily Note-Current Subjective Pt laying Supine in bed awaiting her colonoscopy upon arrival. Pt agrees to PT. Pain Numeric Pain Scale: 6 Location: Left Location Body Site: Knee Pain Description: Ache Comment: Pt reports L knee & R ankle pain. Mental Status Patient Orientation: Person, Place, Time, Situation Attachments: Other-See Comments (L knee immobilizer) Transfers Therapy Code Descriptions/Definitions Functional [place] Measure: 0=Not Assessed/NA 4=Minimal Assistance 1=Total Assistance 5=Supervision or Setup 2=Maximal Assistance 6=Modified [place] 3=Moderate Assistance 7=Complete [place] Therapy Quality Codes: 6 Independent with activity with or without an assistive device 5 Patient requires set up or clean up by helper. Patient completes activity by themselves 4 Supervision or touching assist (CGA). [place] provide cues , steadying assist 3 The helper provides less than half the effort to complete the activity 2 The helper provides more than half the effort to complete the activity 1 Dependent. The helper does all the effort to complete an activity 7 Patient refused to complete or attempt activity 9 The patient did not perform the activity before the current illness or injury 88 Not attempted due to Medical conditions or safety concerns Weight Bearing Right Lower Extremity: Right Partial Weight Bearing Left Lower Extremity: Left Full Weight Bearing Exercises Supine Ex: Ankle pumps, Quad Set, Hip abd/add Supine Reps: 15 Treatments Pt is still waiting for Colonoscopy and does not want to complete many Ex. Pt completes Supine Ex in bed with rest break as needed. Pt resting in bed at end of tx with all needs met. Assessment Current Status: Fair Progress Pt's daughter reports increased movement today although pt demonstrates fatiguing easily. PT Short Term Goals Short Term Goals Time Frame: Jan 31, 2019 Transfers (B,C,W/C) (FIM): 3 Gait (FIM): 1 Distance (FIM): 1=up to 49 ft Gait Distance Comment: 10' Gait Level of Assist: 3 Gait Assistive Device: FWW PT Plan Problem List Problem List: Activity Tolerance, Functional Strength, Safety, Balance, Gait, Transfer, Bed Mobility, ROM Treatment/Plan Treatment Plan: Continue Plan of Care Treatment Plan: Bed Mobility, Education, Functional Activity [place], Functional Strength, Gait, Safety, Therapeutic Exercise, Transfers Treatment Duration: Jan 31, 2019 Frequency: 6 times per week Estimated Hrs Per Day: .25 hour per day Patient and/or Family Agrees t: Yes Safety Risks/Education Patient Education: Transfer Techniques, Correct Positioning, Safety Issues Teaching Recipient: Patient Teaching Methods: Discussion Response to Teaching: Verbalize Understanding Time/GCodes Time In: 1500 Time Out: 1520 Total Billed Treatment Time: 20 Total Billed Treatment 1, EX (20m) G Codes Necessary: GILLES Brothers PTA Jan 29, 2019 15:32
[2019-01-29] MEDS ORDERED: proPOfol 200 MG/20 ML (DIPRIVAN) VIAL IV ONE (15:39)
[2019-01-29] MEDS ORDERED: MIDAZOLAM 2 MG/2 ML (VERSED) VIAL ONE (15:39)
[2019-01-29] MEDS ORDERED: EPINEPHrine INJECTION 1 MG/ML AMP ONE (15:40)
[2019-01-29] MEDS ORDERED: NS (IVPB) 250 ML ONE (16:00)
--- NOTE | 2019-01-29 16:22 | Endo Procedure Record ---
Endo Procedure Report Date of Procedure Last Colonoscopy: No Jan 29, 2019 Surgeon (s) JOSE CHANDRA MD Post Procedure/Op Diagnosis EGD: Grade 3 esophagitis. Nonbleeding prepyloric, 2 mm ulcer. 2 mm, chronic, nonbleeding duodenal ulcer Colonoscopy to cecum: Sigmoid diverticulosis without any active bleeding Procedure Performed upper GI endoscopy Colonoscopy to cecum Description of Procedure Anesthesia Type: Conscious Sedation Specimen(s) collected/removed none Description of the Procedure Indication for the procedures: This lady, who has been admitted with UTI, was found to have ST segment elevation on cardiac tracing. She was placed on antiplatelet drugs and preparations for cardiac catheterization were underway. during the insurance processor hours of 01/28/19, she developed profuse rectal bleeding decrease of hemoglobin by at least 3 g due to loss of blood. However, she remained hemodynamically stable. The bleeding itself stopped within 4 hours. Therefore, it was felt reasonable to delay cardiac catheterization and evaluate the source of bleeding with the GI endoscopy. Informed consent was obtained after reviewing the procedures in detail. Description of the procedures: EGD: She was placed in left lateral decubitus position and monitored in the intensive care unit itself. Conscious sedation was achieved by Dr. Samuel , our anesthesiologist. The flexible gastroscope was then introduced down the esophagus, past the stomach, into the proximal duodenum. Findings: Esophagus:grade 3 esophagitis with streaks of erythema with central ulceration along the distal esophagus. There was no stricture. Stomach: A nonbleeding, chronic, 3 mm ulcer along the prepyloric region. Duodenum: Nonbleeding, 2 mm, chronic ulcer along the first part. She tolerated the procedure well and was turned around in preparation for colonoscopy. Colonoscopy: Digital rectal examination was unremarkable the colonoscope was then introduced into the rectum and advanced easily, all the way to the cecum. The quality of bowel preparation was excellent. The scope was then withdrawn slowly and the mucosa examined in a systematic fashion. Findings: Nonbleeding sigmoid diverticulosis. She tolerated the procedures well and remained stable throughout. Impression: GI bleeding possibly of diverticular origin, currently resolved. No specific treatment is required at this point. Copy Copies To 1: AARON SINGH MD Copies To 2: VICKI BEST MD [facility] JOSE CHANDRA MD Jan 29, 2019 16:22
--- NOTE | 2019-01-29 16:30 | Anesthesia-General Post-Op ---
MAC Patient Condition Mental Status/LOC: Same as Preop Cardiovascular: Satisfactory Nausea/Vomiting: Absent Respiratory: Satisfactory Pain: Controlled Complications: Absent Post Op Complications Complications None Follow Up Care/Instructions Patient Instructions None needed. Anesthesiology Discharge Order Discharge Order Patient is doing well, no complaints, stable vital signs, no apparent adverse anesthesia problems. BRYCE MCHUGH DO Jan 29, 2019 16:30
[2019-01-29] MEDS: fentaNYL PATCH 12 MCG (DURAGESIC) TD SCH (16:46)
--- NOTE | 2019-01-29 19:08 | Progress Note-Cardiology ---
Cardiology SOAP Progress Note Subjective: No cp or palp or syncope or shortness of breath at rest Objective: I&O/Vital Signs 01/29/19 01/29/19 01/29/19 01/29/19 08:00 08:00 12:00 12:00 Pulse 100 100 Resp 17 17 B/P (MAP) 160/87 (111) 148/76 (100) Pulse Ox 97 97 O2 Delivery Room Air Room Air Room Air Room Air 01/29/19 01/29/19 01/29/19 01/29/19 13:00 13:04 14:00 15:00 Pulse 82 85 85 87 Resp 17 22 27 B/P (MAP) 147/75 (99) 152/78 (102) 145/76 (99) Pulse Ox 96 96 95 O2 Delivery Room Air Room Air Room Air 01/29/19 01/29/19 01/29/19 01/29/19 16:00 16:27 17:00 18:00 Pulse 87 86 87 Resp 15 20 12 B/P (MAP) 137/76 (96) 145/73 (97) 118/106 (110) Pulse Ox 98 97 94 O2 Delivery Room Air Room Air Room Air Room Air 01/29/19 00:00 Intake Total 1250 ml Output Total 1025 ml Balance 225 ml Weight (Pounds): 138 Weight (Ounces): 0.0 Weight (Calculated Kilograms): [id number] Constitutional: AAO x 3, well-developed, well-nourished Respiratory: No accessory muscle use; other (good bilat air entry, diminished at the bases) Cardiovascular: regular rate-rhythm, S1 and S2, systolic murmur (faint KARLENE at card base) Gastrointestional: No tender; soft; No guarding, No rebound; audible bowel sounds Extremities: other (leg brace in place to LLE); No clubbing, No cyanosis, No significant edema Neurologic/Psychiatric: grossly intact (able to move all limbs, but we did not attempt motion at knees or ankles because of pain) Skin: No rash on exposed areas, No ulcerations on exposed areas Results/Procedures: Labs Laboratory Tests 01/29/19 03:35: White Blood Count 14.7H, Red Blood Count 4.29L, Hemoglobin 10.7L, Hematocrit 33L , Mean Corpuscular Volume 78L, Mean Corpuscular Hemoglobin 25, Mean Corpuscular Hemoglobin Concent 32, Red Cell Distribution Width 18.0H, Platelet Count 428H, Mean Platelet Volume 11.2H, Neutrophils (%) (Auto) 64, Lymphocytes (%) (Auto) 15 , Monocytes (%) (Auto) 20H, Eosinophils (%) (Auto) 0, Basophils (%) (Auto) 0, Neutrophils # (Auto) 9.5H, Lymphocytes # (Auto) 2.3, Monocytes # (Auto) 2.9H, Eosinophils # (Auto) 0.0, Basophils # (Auto) 0.0, Neutrophils % (Manual) 69, Lymphocytes % (Manual) 9, Monocytes % (Manual) 16, Eosinophils % (Manual) 0, Basophils % (Manual) 0, Band Neutrophils 0, Reactive Lymphocytes 6, Polychromasia SLIGHT, Hypochromasia SLIGHT, Anisocytosis MODERATE, Prothrombin Time 15.7H, INR Comment 1.3, Activated Partial Thromboplast Time 36H, Sodium Level 136, Potassium Level 3.4L, Chloride Level 108H, Carbon Dioxide Level 21, Anion Gap 7, Blood Urea Nitrogen 8, Creatinine 0.43L, Estimat Glomerular Filtration Rate > 60, BUN/Creatinine Ratio 19, Glucose Level 98, Calcium Level 7.9L, Phosphorus Level 1.9L, Magnesium Level 1.9 01/29/19 06:43: Hemoglobin 10.5L, Hematocrit 34L Microbiology 01/23/19 Blood Culture - Final, Complete No growth 01/24/19 Influenza Types A,B Antigen (YIFAN) - Final, Complete 01/23/19 Urine Culture - Final, Complete Escherichia coli A/P: Assessment: Hematochezia (large) on 01/28/19 Recent (January 2019) NSTEMI Ischemic cardiomyopathy. Echo of 01/26/19 showed anteroseptal and apical hypokinesis, LVEF 35-40%, grade I hernandez dysfunction, PASP 40 mmHg, mod MR, mild to mod TR Syncope in Dec 2018, per patient and family description T-12 fracture in Dec 2018 due to syncopal fall (as stated by her family) This admission with L knee pain and R ankle pain of unclear etiology - Managed by Hospitalist and Ortho Svces Leucocytosis of unclear etiology - Managed by Hospitalist Svce Hypertension Incomplete LBBB on ECG, apparently chronic (pt reports a h/o abn ECG in the past ) Plan: * Complex management * Family and pt desire conservative therapy only. Not suitable for antiplatelet agents or anticoag at this time * Endoscopy today * We recommend close clinical and lab f/u VICKI BEST MD FACP FAC CCDS Jan 29, 2019 19:08
[2019-01-29] MEDS: ATORVASTATIN 40 MG (LIPITOR) TABLET PO SCH (21:33)
[2019-01-30] VITALS (12 sets, daily range): BP systolic 128–174; BP diastolic 69–85
[2019-01-30] MEDS: fentaNYL INJECTION 100 MCG/2 ML AMP IVP PRN ×3 (02:24→15:34)
[2019-01-30 04:02] LABS: BASOPHILS % (AUTO) 0 % (0-10); EOSINOPHILS # (AUTO) 0.1 10^3/uL (0.0-0.3); EOSINOPHILS % (AUTO) 1 % (0-10); HEMATOCRIT 33 % (35-52); HEMOGLOBIN 10.5 G/DL (11.5-16.0); LYMPHOCYTES % (AUTO) 14 % (12-44); MEAN CORPUSCULAR HEMOGLOBIN 25 PG (25-34); MEAN CORPUSCULAR HGB CONC 32 G/DL (32-36); MEAN CORPUSCULAR VOLUME 79 FL (80-99); MEAN PLATELET VOLUME 11.2 FL (7.4-10.4); MONOCYTES # (AUTO) 2.6 X 10^3 (0.0-1.0); MONOCYTES % (AUTO) 18 % (0-12); NEUTROPHILS % (AUTO) 68 % (42-75); PLATELET COUNT 481 10^3/uL (130-400); RED CELL DISTRIBUTION WIDTH 18.9 % (10.0-14.5); WHITE BLOOD COUNT 14.8 10^3/uL (4.3-11.0)
[2019-01-30 04:19] LABS: BUN/CREATININE RATIO 15; CALCIUM 7.6 MG/DL (8.5-10.1); CARBON DIOXIDE 21 MMOL/L (21-32); CHLORIDE 109 MMOL/L (98-107); CREATININE SERUM 0.52 MG/DL (0.60-1.30); GFR ESTIMATED > 60; GLUCOSE 124 MG/DL (70-105); MAGNESIUM 1.7 MG/DL (1.8-2.4); PHOSPHORUS 1.4 MG/DL (2.3-4.7); POTASSIUM 3.7 MMOL/L (3.6-5.0); SODIUM 137 MMOL/L (135-145)
--- NOTE | 2019-01-30 05:02 | Pulmonary Progress Note ---
Subjective Time Seen by a Provider: 04:59 Subjective/Events-last exam S/P EGD, Colonoscopy -No active bleeding Sepsis Event Evaluation Height, Weight, BMI Height: 5'1.00" Weight: 138lbs. 0.0oz. 62.489124kk; 26.1 BMI Method:Stated Exam Exam Vital Signs Date Time Temp Pulse Resp B/P (MAP) Pulse Ox O2 Delivery O2 Flow Rate FiO2 01/30/19 04:00 98.2 01/30/19 04:00 Room Air 01/30/19 04:00 93 22 152/72 (98) 96 Room Air 01/30/19 03:00 92 28 161/69 (99) 96 Room Air 01/30/19 02:00 91 13 142/85 (104) 96 Room Air 01/30/19 01:00 86 01/30/19 01:00 86 15 134/71 (92) 94 Room Air 01/30/19 00:08 98.9 01/30/19 00:00 89 12 139/69 (92) 96 Room Air 01/30/19 00:00 Room Air 01/29/19 23:00 89 18 131/70 (90) 94 Room Air 01/29/19 22:00 92 18 136/64 (88) 94 Room Air 01/29/19 21:00 92 17 116/58 (77) 92 Room Air 01/29/19 20:00 Room Air 01/29/19 20:00 97.2 01/29/19 20:00 82 20 101/47 (65) 93 Room Air 01/29/19 19:00 89 01/29/19 19:00 89 14 131/65 (87) 95 Room Air 01/29/19 18:00 87 12 118/106 (110) 94 Room Air 01/29/19 17:00 86 20 145/73 (97) 97 Room Air 01/29/19 16:27 Room Air 01/29/19 16:00 87 15 137/76 (96) 98 Room Air 01/29/19 15:00 87 27 145/76 (99) 95 Room Air 01/29/19 14:00 85 22 152/78 (102) 96 Room Air 01/29/19 13:04 85 01/29/19 13:00 82 17 147/75 (99) 96 Room Air 3/6/19 12:00 100 17 148/76 (100) 97 Room Air 01/29/19 12:00 Room Air 01/29/19 08:00 Room Air 01/29/19 08:00 100 17 160/87 (111) 97 Room Air 01/29/19 07:00 104 17 155/85 (108) 96 Room Air 01/29/19 07:00 101 01/29/19 06:00 97 14 133/72 (92) 96 Room Air 01/29/19 05:00 94 12 117/74 (88) 95 Room Air I & O 01/30/19 07:00 Intake Total 1250 ml Output Total 950 ml Balance 300 ml Height & Weight Height: 5'1.00" Weight: 138lbs. 0.0oz. 62.765624eg; 26.1 BMI Method:Stated General Appearance: No Apparent Distress, WD/WN, Chronically ill Respiratory: Lungs Clear, Normal Breath Sounds, No Accessory Muscle Use, No Respiratory Distress Cardiovascular: Regular Rate, Rhythm, No JVD, No Murmur Capillary Refill: Less Than 3 Seconds Gastrointestinal: non tender, soft, other Extremity: Other (swelling without erythema around left knee, patella remains laterally and anteriorly displaced) Neurologic/Psychiatric: Alert, Disoriented Skin: Normal Color, Warm/Dry Results Lab Laboratory Tests 01/28/19 05:30 01/28/19 06:40 01/28/19 10:32 01/28/19 16:53 01/29/19 03:35 01/29/19 06:43 01/30/19 03:35 Assessment/Plan Assessment/Plan Acute GIB s/p transfusion -Monitor H&H -IVF -S/P EGD/colonoscopy -Check coags Hypotension -IVF currently NS at 100cc/hr -Monitor STEMI -Cardiology following -Conservative tx per family S/p fall with multiple fractures Ischemic cardiomyopathy and grad 1 diastolic dysfunction -echo with EF of 35-40% HB is stable and pt is doing well. Will transfer to 4th floor and sign off. Please call with any questions or concerns. SUSAN AMARAL DO Jan 30, 2019 05:02
[2019-01-30] MEDS: LACTOBACILLUS ACIDOPHILUS (PROBIOTIC) CAPSULE PO SCH ×3 (06:09→15:34)
[2019-01-30] MEDS: PANTOPRAZOLE 40 MG (PROTONIX) VIAL IV SCH (08:36)
[2019-01-30] MEDS: lisINopril 5 MG (PRINIVIL) TABLET PO SCH (08:36)
[2019-01-30] MEDS: meTOprolol SUCCINATE 100 MG (TOPROL XL) TAB PO SCH (08:36)
--- NOTE | 2019-01-30 09:03 | NUR ---
Pt and family recognize pt's need for additional care since she lives alone. They would like pt to be admitted to the [facility] for Skilled Care when medically appropriate. Contacted [facility] and they would have an available bed on SundayJanuary 31.
--- NOTE | 2019-01-30 09:06 | Diagnostic Imaging Report ---
Indication: Dyspnea, knee pain and sepsis. Comparison made with prior examination from 01/29/2019 Findings: There is cardiomegaly. There may be a tiny left pleural effusion. There is no pneumothorax. The mediastinum is unremarkable. IMPRESSION: Cardiomegaly and small left pleural effusion. There may be some minimal left basilar subsegmental atelectasis and/or pneumonitis. Dictated by: Dictated on workstation # [id number]
--- NOTE | 2019-01-30 09:43 | Progress Note-Hospitalist ---
Subjective HPI/CC On Admission Date Seen by Provider: Jan 30, 2019 Time Seen by Provider: 09:30 Pt is an 83yoCF with a PMH lupus, CAD, and chronic back pain who presented to the ER with a CC of back pain, knee pain, and weakness. She was seen in the ER on 01/07 after a fall and was found to have a T12 compression fracture. She was discharged home and did relatively well ambulating with a walker until 3 days ago when her mobility worsened. Today she was unable to get out of bed so her daughter called EMS to bring her to the ER for evaluation. She was found to have a UTI and meet sepsis criteria and was admitted for further management. She complains of severe knee pain as well. Subjective/Events-last exam Pt doing well today. Will transfer to fourth floor. Will go to [facility] for nursing facility tomorrow. Nursing orders placed in preparation for that. Denies any pain. Son at bedside. PT and OT will be reordered. Ulcers managed conservatively on EGD Review of Systems General: Fatigue Objective Exam Vital Signs Vital Signs Date Time Temp Pulse Resp B/P (MAP) Pulse Ox O2 Delivery O2 Flow Rate FiO2 01/30/19 15:07 100.2 83 14 128/71 (90) 96 01/30/19 12:00 Room Air 01/28/19 19:00 2.00 01/28/19 08:00 98 Capillary Refill : Less Than 3 SecondsLess Than 3 Seconds General Appearance: No Apparent Distress, WD/WN, Chronically ill Respiratory: Lungs Clear, Normal Breath Sounds, No Accessory Muscle Use, No Respiratory Distress Cardiovascular: Regular Rate, Rhythm, No JVD, No Murmur Gastrointestinal: Normal Bowel Sounds, Non Tender, Soft Genital/Rectal: Other (catheter in place) Extremity: Other (swelling without erythema around left knee, patella remains laterally and anteriorly displaced) Neurologic/Psychiatric: Alert, Disoriented Skin: Normal Color, Warm/Dry Results/Procedures Lab Laboratory Tests 01/30/19 03:35 Patient resulted labs reviewed. Imaging: Reviewed Imaging Report Assessment/Plan Assessment and Plan Assess & Plan/Chief Complaint Assessment: Acute GIB s/p transfusion due to gastric ulcers on EGD Hypotension STEMI s/p fall with multiple fractures Ischemic cardiomyopathy Cognitive decline noted Debility will require NHP Plan: Endoscopies reviewed [facility] [place] Sunday Monitor BP Diagnosis/Problems Diagnosis/Problems (1) GI bleed Status: Acute Qualifiers: GI bleed type/associated pathology: unspecified gastrointestinal hemorrhage type Qualified Codes: K92.2 - Gastrointestinal hemorrhage, unspecified (2) Transfusion of blood during current hospitalization Status: Acute (3) Hypokalemia Status: Acute (4) Elevated troponin Status: Acute (5) Left knee pain Status: Acute Qualifiers: Chronicity: acute Qualified Codes: M25.562 - Pain in left knee (6) Generalized weakness Status: Acute (7) Urinary tract infection Status: Acute Qualifiers: Urinary tract infection type: site unspecified Hematuria presence: without hematuria Qualified Codes: N39.0 - Urinary tract infection, site not specified Clinical Quality Measures DVT/VTE Risk/Contraindication: Risk Factor Score Per Nursin RFS Level Per Nursing on Admit: 4+=Very High DORI WATKINS DO Jan 30, 2019 09:43
--- NOTE | 2019-01-30 09:57 | Discharge Inst-Skilled Nursing ---
Discharge Inst-Skilled NF Patient Instructions Patient Problems: Generalized weakness Falls Gastric ulcer with GI bleed Consult/Follow Up/Orders Follow Up Appt.: PCP in 1 week Skilled NF Admit to: [facility] Certification (SNF) I certify that SNF services are required to be given on an inpatient basis because of the above named patient's need for long-term care on a continuing basis for the conditions(s) for which he/she was receiving inpatient hospital services prior to his/her transfer to the SNF. Retirement Facility Order: Nursing Services, Partnership Development Manager-Evaluate & Treat, Physical Therapy-Evaluate & Treat, Speech Language-Evaluate & Treat Oxygen Delivery Method: Room Air Daily Activity as Tolerated: Yes New & Resume Previous Orders Emilee Mayfield Jan 30, 2019 09:56 Pneu Vac Indicated: Yes EMILEE MAYFIELD DO Jan 30, 2019 09:57
--- NOTE | 2019-01-30 11:04 | Physical Therapy Daily Note ---
PT Daily Note-Current Subjective Pt in bed and reluctantly agrees to PT since she is being transferred to 4th floor. Pain Numeric Pain Scale: 10-Worst Possible Pain Location Body Site: Knee Mental Status Patient Orientation: Person Attachments: Gay Catheter Transfers Therapy Code Descriptions/Definitions Functional [place] Measure: 0=Not Assessed/NA 4=Minimal Assistance 1=Total Assistance 5=Supervision or Setup 2=Maximal Assistance 6=Modified [place] 3=Moderate Assistance 7=Complete [place] Therapy Quality Codes: 6 Independent with activity with or without an assistive device 5 Patient requires set up or clean up by helper. Patient completes activity by themselves 4 Supervision or touching assist (CGA). [place] provide cues , steadying assist 3 The helper provides less than half the effort to complete the activity 2 The helper provides more than half the effort to complete the activity 1 Dependent. The helper does all the effort to complete an activity 7 Patient refused to complete or attempt activity 9 The patient did not perform the activity before the current illness or injury 88 Not attempted due to Medical conditions or safety concerns Transfers (B, C, W/C) (FIM): 2 Scootin Supine to/from Sit: 3 Sit to/from Stand: 2 Weight Bearing Right Lower Extremity: Right Partial Weight Bearing Left Lower Extremity: Left Full Weight Bearing Assessment Current Status: Fair Progress PT donned L knee immobilizer. Pt bed mobility is mod A with help of Chen OWEN. Pt is able to remain seated with CGA EOB. Pt requires max A x2 for sit<>stand transfer. Pt was transferred from EOB to recliner with stand pivot. Pt is in recliner with needs met ready to be transferred. PT Short Term Goals Short Term Goals Time Frame: Jan 31, 2019 Transfers (B,C,W/C) (FIM): 3 Gait (FIM): 1 Distance (FIM): 1=up to 49 ft Gait Distance Comment: 10' Gait Level of Assist: 3 Gait Assistive Device: FWW PT Plan Problem List Problem List: Activity Tolerance, Functional Strength, Safety, Balance, Gait, Transfer, Bed Mobility, ROM Treatment/Plan Treatment Plan: Continue Plan of Care Treatment Plan: Bed Mobility, Education, Functional Activity Negrito, Functional Strength, Gait, Safety, Therapeutic Exercise, Transfers Treatment Duration: Jan 31, 2019 Frequency: 6 times per week Estimated Hrs Per Day: .25 hour per day Patient and/or Family Agrees t: Yes Safety Risks/Education Patient Education: Transfer Techniques, Correct Positioning, Safety Issues Teaching Recipient: Patient, Family Teaching Methods: Demonstration, Discussion Time/GCodes Time In: 1017 Time Out: 1035 Total Billed Treatment Time: 18 Total Billed Treatment 1 visit REEV 18 min DERICK REDDING PT Jan 30, 2019 11:04
--- NOTE | 2019-01-30 12:49 | Occ Therapy Progress Note ---
Therapy Progress Note 1247-Attempted to see pt. Family stated that pt had just fallen asleep. Will check on pt at later time. refusal by family LILIA MCCLENDON Jan 30, 2019 12:49
--- NOTE | 2019-01-30 14:25 | NUR ---
Pastoral care visit.
--- NOTE | 2019-01-30 14:54 | Occupational Ther Daily Note ---
OT Current Status-Daily Note Subjective Pt alert, lying in bed. Family members present in room. Pt agrees to therapy with encouragement. C/o getting up and moving with therapy. Mental Status/Objective Patient Orientation: Person, Place, Time, Situation Therapy Code Descriptions/Definitions Functional [place] Measure: 0=Not Assessed/NA 4=Minimal Assistance 1=Total Assistance 5=Supervision or Setup 2=Maximal Assistance 6=Modified [place] 3=Moderate Assistance 7=Complete [place] Attachments: IV ADL-Treatment Toileting (FIM): 4 Toilet/Commode Transfer (FIM): 1 Other Treatment Pt able to complete UE exercises with resistance to increase strength and activity tolerance for daily functional tasks. Pt then requested to use BSC. Mod assist x2 for supine to EOB, CGA for EOB. Min A x2, due to pt's anxiety, to transfer onto BSC using FWW. Verbal cues for correct placement of hands on FWW. Pt able to cleanse self on toilet with daughters assistance. Min A x2 to transfer back to EOB. Mod A x2 to go from EOB to supine. During therapy, pt requested to sit on toilet for awhile, call light given and daughter present in room. After therapy, pt lying in bed with call light/phone in reach. All needs met in room. OT Short Term Goals Short Term Goals Time Frame: Feb 12, 2019 Eating(FIM): 7 Grooming(FIM): 7 Bathing(FIM): 3 (sponge bath) Upper Body Dressing(FIM): 4 Lower Body Dressing(FIM): 3 Toileting(FIM): 5 Transfers (B,C,W/C) (FIM): 3 Toilet/Commode Transfer(FIM): 3 Tub Transfer(FIM): 0 Shower Transfer(FIM): 3 Additional Short Term Goals: 1-Demonstrate ADL Tasks, 2-Verbalize Understanding , 3-ImproveStrength/Negrito 1=Demonstrate adherence to instructed precautions during ADL tasks. 2=Patient will verbalize/demonstrate understanding of assistive devices/ modifications for ADL. 3=Patient will improve strength/tolerance for activity to enable patient to perform ADL's. OT Beater Machine Operator Goals Beater Machine Operator Goals Time Frame: Feb 26, 2019 Eating (FIM): 7 Grooming(FIM): 7 Bathing(FIM): 6 Bathing Location: L Arm, R Arm, L Upper Leg, R Upper Leg, L Lower Leg ( including foot), R Lower Leg (including foot), Chest, Abdomen, Buttocks, Perineal Area Upper Body Dressing(FIM): 7 Lower Body Dressing(FIM): 7 Toileting(FIM): 7 Transfers (B,C,W/C) (FIM): 7 Toilet/Commode Transfer(FIM): 7 Tub Transfer(FIM): 6 Shower Transfer(FIM): 7 Additional Goals: 1-Demonstrate ADL Tasks, 2-Verbalize Understanding, 3- ImproveStrength/Negrito 1=Demonstrate adherence to instructed precautions during ADL tasks. 2=Patient will verbalize/demonstrate understanding of assistive devices/ modifications for ADL. 3=Patient will improve strength/tolerance for activity to enable patient to perform ADL's. OT Education/Plan Problem List/Assessment Assessment: Decreased Activ Tolerance, Decreased UE Strength, Impaired Funct Balance, Impaired Self-Care Skills, Restricted Funct UE ROM Discharge Recommendations Plan/Recommendations: Continue POC Treatment Plan/Plan of Care Patient would benefit from OT for education, treatment and training to promote independence in ADL's, mobility, safety and/or upper extremity function for ADL' s. Plan of Care: ADL Retraining, Caregiver Training, Cognitive Retraining, Functional Mobility, UE Funct Exercise/Act, UE Neuromus Re-Ed/Coord Treatment Duration: Feb 26, 2019 Frequency: 5 times per week Estimated Hrs Per Day: .25 hour per day Agreement: Yes Rehab Potential: Fair Time/GCodes Start Time: 14:05 ([id number]=10 min) Stop Time: 14:40 (2318-6168=15 min) Total Time Billed (hr/min): 25 Billed Treatment Time 1 [id number] EX 1 (10 min) 1 [id number] ADL 1 (15 min) LILIA MCCLENDON Jan 30, 2019 14:54
[2019-01-30] MEDS: ACETAMINOPHEN 325 MG TABLET PO PRN (15:34)
--- NOTE | 2019-01-30 16:16 | Progress Note-Cardiology ---
Cardiology SOAP Progress Note Subjective: No cp or palp or syncope or shortness of breath or further rectal bleed Objective: I&O/Vital Signs 01/30/19 01/30/19 01/30/19 01/30/19 07:00 07:02 08:00 08:00 Pulse 91 92 95 Resp 25 18 B/P (MAP) 163/84 (110) 161/76 (104) Pulse Ox 96 98 O2 Delivery Room Air Room Air Room Air 01/30/19 01/30/19 01/30/19 09:00 10:00 12:00 Temp 97.6 Pulse 92 93 83 Resp 25 19 18 B/P (MAP) 161/81 (107) 173/84 (113) 157/81 (106) Pulse Ox 95 93 95 O2 Delivery Room Air Room Air Room Air 01/30/19 00:00 Intake Total 50 ml Output Total 600 ml Balance -550 ml Weight (Pounds): 146 Weight (Ounces): 0.0 Weight (Calculated Kilograms): 66.932019 Constitutional: AAO x 3, well-developed, well-nourished Respiratory: No accessory muscle use; other (good bilat air entry, diminished at the bases) Cardiovascular: regular rate-rhythm, S1 and S2, systolic murmur (faint KARLENE at card base) Gastrointestional: No tender; soft; No guarding, No rebound; audible bowel sounds Extremities: other (leg brace in place to LLE); No clubbing, No cyanosis, No significant edema Neurologic/Psychiatric: grossly intact (able to move all limbs, but we did not attempt motion at knees or ankles because of pain) Skin: No rash on exposed areas, No ulcerations on exposed areas Results/Procedures: Labs Laboratory Tests 01/30/19 03:35: White Blood Count 14.8H, Red Blood Count 4.20L, Hemoglobin 10.5L, Hematocrit 33L , Mean Corpuscular Volume 79L, Mean Corpuscular Hemoglobin 25, Mean Corpuscular Hemoglobin Concent 32, Red Cell Distribution Width 18.9H, Platelet Count 481H, Mean Platelet Volume 11.2H, Neutrophils (%) (Auto) 68, Lymphocytes (%) (Auto) 14 , Monocytes (%) (Auto) 18H, Eosinophils (%) (Auto) 1, Basophils (%) (Auto) 0, Neutrophils # (Auto) 10.0H, Lymphocytes # (Auto) 2.0, Monocytes # (Auto) 2.6H, Eosinophils # (Auto) 0.1, Basophils # (Auto) 0.0, Sodium Level 137, Potassium Level 3.7, Chloride Level 109H, Carbon Dioxide Level 21, Anion Gap 7, Blood Urea Nitrogen 8, Creatinine 0.52L, Estimat Glomerular Filtration Rate > 60, BUN/ Creatinine Ratio 15, Glucose Level 124H, Calcium Level 7.6L, Phosphorus Level 1.4L, Magnesium Level 1.7L Microbiology 01/23/19 Blood Culture - Final, Complete No growth 01/24/19 Influenza Types A,B Antigen (YIFAN) - Final, Complete 01/23/19 Urine Culture - Final, Complete Escherichia coli A/P: Assessment: Hematochezia (large) on 01/28/19 Recent (January 2019) NSTEMI Ischemic cardiomyopathy. Echo of 01/26/19 showed anteroseptal and apical hypokinesis, LVEF 35-40%, grade I hernandez dysfunction, PASP 40 mmHg, mod MR, mild to mod TR Syncope in Dec 2018, per patient and family description T-12 fracture in Dec 2018 due to syncopal fall (as stated by her family) This admission with L knee pain and R ankle pain of unclear etiology - Managed by Hospitalist and Ortho Svces Leucocytosis of unclear etiology - Managed by Hospitalist Svce Hypertension Incomplete LBBB on ECG, apparently chronic (pt reports a h/o abn ECG in the past ) Plan: * Complex management * Family and pt desire conservative therapy only * Add ASA 81 qod. I discussed the pros and cons of this with her and her family in detail * We recommend close clinical and lab f/u VICKI BEST MD FACP FAC CCDS Jan 30, 2019 16:16
[2019-01-30] MEDS ORDERED: ASPIRIN 81 MG CHEW (CHILDREN'S ASA) PO SCH (16:30)
[2019-01-30] MEDS: ATORVASTATIN 40 MG (LIPITOR) TABLET PO SCH (20:39)
[2019-01-31 00:49] VITALS: BP 133/73
[2019-01-31 04:00] VITALS: BP 158/76
[2019-01-31 04:33] LABS: BASOPHILS % (AUTO) 0 % (0-10); EOSINOPHILS # (AUTO) 0.1 10^3/uL (0.0-0.3); EOSINOPHILS % (AUTO) 1 % (0-10); HEMATOCRIT 34 % (35-52); HEMOGLOBIN 10.8 G/DL (11.5-16.0); LYMPHOCYTES # (AUTO) 2.7 X 10^3 (1.0-4.0); LYMPHOCYTES % (AUTO) 18 % (12-44); MEAN CORPUSCULAR HEMOGLOBIN 25 PG (25-34); MEAN CORPUSCULAR HGB CONC 32 G/DL (32-36); MEAN CORPUSCULAR VOLUME 78 FL (80-99); MEAN PLATELET VOLUME 11.1 FL (7.4-10.4); MONOCYTES # (AUTO) 3.8 X 10^3 (0.0-1.0); MONOCYTES % (AUTO) 25 % (0-12); NEUTROPHILS # (AUTO) 8.6 X 10^3 (1.8-7.8); NEUTROPHILS % (AUTO) 57 % (42-75); PLATELET COUNT 496 10^3/uL (130-400); RED CELL DISTRIBUTION WIDTH 18.7 % (10.0-14.5); WHITE BLOOD COUNT 15.1 10^3/uL (4.3-11.0)
[2019-01-31 04:50] LABS: BUN/CREATININE RATIO 13; CALCIUM 8.2 MG/DL (8.5-10.1); CARBON DIOXIDE 21 MMOL/L (21-32); CHLORIDE 104 MMOL/L (98-107); CREATININE SERUM 0.45 MG/DL (0.60-1.30); GFR ESTIMATED > 60; GLUCOSE 100 MG/DL (70-105); MAGNESIUM 1.6 MG/DL (1.8-2.4); PHOSPHORUS 1.8 MG/DL (2.3-4.7); SODIUM 134 MMOL/L (135-145)
[2019-01-31] MEDS: LACTOBACILLUS ACIDOPHILUS (PROBIOTIC) CAPSULE PO SCH ×2 (06:31→12:07)
[2019-01-31 08:00] VITALS: BP 130/75
[2019-01-31] MEDS ORDERED: PANTOPRAZOLE 40 MG (PROTONIX) TAB PO SCH (09:00)
--- NOTE | 2019-01-31 09:21 | NUR ---
Pt has been approved for admission to [facility]. They are going to send a reclining wheel chair with leg rests for transport due to her pain issues. They will transport if discharged at 1600 hour.
[2019-01-31] MEDS: meTOprolol SUCCINATE 100 MG (TOPROL XL) TAB PO SCH (10:27)
[2019-01-31] MEDS: lisINopril 5 MG (PRINIVIL) TABLET PO SCH (10:27)
[2019-01-31] MEDS: PANTOPRAZOLE 40 MG (PROTONIX) VIAL IV SCH (10:28)
--- NOTE | 2019-01-31 10:39 | Physical Therapy Daily Note ---
PT Daily Note-Current Subjective Agrees to PT. Reports she is going to discharge later today to [place] in [place] Mental Status Patient Orientation: Person, Place, Time, Situation Transfers Therapy Code Descriptions/Definitions Functional [place] Measure: 0=Not Assessed/NA 4=Minimal Assistance 1=Total Assistance 5=Supervision or Setup 2=Maximal Assistance 6=Modified [place] 3=Moderate Assistance 7=Complete [place] Therapy Quality Codes: 6 Independent with activity with or without an assistive device 5 Patient requires set up or clean up by helper. Patient completes activity by themselves 4 Supervision or touching assist (CGA). [place] provide cues , steadying assist 3 The helper provides less than half the effort to complete the activity 2 The helper provides more than half the effort to complete the activity 1 Dependent. The helper does all the effort to complete an activity 7 Patient refused to complete or attempt activity 9 The patient did not perform the activity before the current illness or injury 88 Not attempted due to Medical conditions or safety concerns Pt transferred supine to sit EOB with mod assist and skilled cues for sequencing and safety; assist with both legs to get out of bed. Pt very participatory and takes extra time but is able to assist with getting up with HOB elevated. Pt sat EOB with SBA. Sit to stand with max assist of 1 and then pt able to perform SPT with FWW with min assist and skilled cues for sequencing and safety. Pt up in chair post treatment with needs met. Weight Bearing Right Lower Extremity: Right Partial Weight Bearing Left Lower Extremity: Left Full Weight Bearing Assessment Current Status: Good Progress Pt improving with transfer. Pt cooperative, motivated and pleasant. PT Short Term Goals Short Term Goals Time Frame: Jan 31, 2019 Transfers (B,C,W/C) (FIM): 3 Gait (FIM): 1 Distance (FIM): 1=up to 49 ft Gait Distance Comment: 10' Gait Level of Assist: 3 Gait Assistive Device: FWW PT Plan Problem List Problem List: Activity Tolerance, Functional Strength, Safety Treatment/Plan Treatment Plan: Continue Plan of Care (vs DC this date) Treatment Plan: Bed Mobility, Education, Functional Activity [place]gr[place], Functional Strength, Gait, Safety, Therapeutic Exercise, Transfers Treatment Duration: Jan 31, 2019 Frequency: 6 times per week Estimated Hrs Per Day: .25 hour per day Patient and/or Family Agrees t: Yes Safety Risks/Education Patient Education: Safety Issues Teaching Recipient: Patient Teaching Methods: Discussion Response to Teaching: Reinforcement Needed Discharge Recommendations Therapy D/C Recommendations: Jail (TCU/NH) Time/GCodes Time In: 1000 Time Out: 1023 Total Billed Treatment Time: 23 Total Billed Treatment visit FA 23 LILIA GAMA PT Jan 31, 2019 10:39
--- NOTE | 2019-01-31 10:48 | Occupational Ther Daily Note ---
OT Current Status-Daily Note Subjective Pt seen in room, up in recliner, agreeable to OT. Reported knees don't hurt much unless she is moving them. Appearance Alert, cooperative Mental Status/Objective Therapy Code Descriptions/Definitions Functional [place] Measure: 0=Not Assessed/NA 4=Minimal Assistance 1=Total Assistance 5=Supervision or Setup 2=Maximal Assistance 6=Modified [place] 3=Moderate Assistance 7=Complete [place] Other Treatment Pt reported that she is scheduled to move to [facility] late this afternoon. Pt education in purpose of UE exercise, to help strengthen arms to help with getting up and down, transfers, and ADLs. Pt completed 15 reps 4 different bilat UE exercises with yellow theraband (gentle resistance), with pt educ on how to do each exercise and occasional verbal cues to do them correctly. Able to track reps and switch sides without difficulty. Theraband left with pt and she was encouraged to do some exercises on her own over the weekend. Pt left up in recliner, all needs met, family in room, Education OT Patient Education: Exercise program, Purpose of tx/functional activities Teaching Recipient: Patient Teaching Methods: Demonstration, Discussion Response to Teaching: Verbalize Understanding, Return Demonstration, Reinforcement Needed OT Short Term Goals Short Term Goals Time Frame: Feb 12, 2019 Eating(FIM): 7 Grooming(FIM): 7 Bathing(FIM): 3 (sponge bath) Upper Body Dressing(FIM): 4 Lower Body Dressing(FIM): 3 Toileting(FIM): 5 Transfers (B,C,W/C) (FIM): 3 Toilet/Commode Transfer(FIM): 3 Tub Transfer(FIM): 0 Shower Transfer(FIM): 3 Additional Short Term Goals: 1-Demonstrate ADL Tasks, 2-Verbalize Understanding , 3-ImproveStrength/[place]gr[place] 1=Demonstrate adherence to instructed precautions during ADL tasks. 2=Patient will verbalize/demonstrate understanding of assistive devices/ modifications for ADL. 3=Patient will improve strength/tolerance for activity to enable patient to perform ADL's. OT Shelter Goals Kiln Repairer Goals Time Frame: Feb 26, 2019 Eating (FIM): 7 Grooming(FIM): 7 Bathing(FIM): 6 Bathing Location: L Arm, R Arm, L Upper Leg, R Upper Leg, L Lower Leg ( including foot), R Lower Leg (including foot), Chest, Abdomen, Buttocks, Perineal Area Upper Body Dressing(FIM): 7 Lower Body Dressing(FIM): 7 Toileting(FIM): 7 Transfers (B,C,W/C) (FIM): 7 Toilet/Commode Transfer(FIM): 7 Tub Transfer(FIM): 6 Shower Transfer(FIM): 7 Additional Goals: 1-Demonstrate ADL Tasks, 2-Verbalize Understanding, 3- ImproveStrength/[place]gr[place] 1=Demonstrate adherence to instructed precautions during ADL tasks. 2=Patient will verbalize/demonstrate understanding of assistive devices/ modifications for ADL. 3=Patient will improve strength/tolerance for activity to enable patient to perform ADL's. OT Education/Plan Discharge Recommendations Plan/Recommendations: Continue POC Treatment Plan/Plan of Care Patient would benefit from OT for education, treatment and training to promote independence in ADL's, mobility, safety and/or upper extremity function for ADL' s. Plan of Care: ADL Retraining, Caregiver Training, Cognitive Retraining, Functional Mobility, UE Funct Exercise/Act, UE Neuromus Re-Ed/Coord Treatment Duration: Feb 26, 2019 Frequency: 5 times per week Estimated Hrs Per Day: .25 hour per day Agreement: Yes Rehab Potential: Fair Time/GCodes Start Time: 10:25 Stop Time: 10:42 Total Time Billed (hr/min): 17 Billed Treatment Time visit, 17 minutes exercise BILL LOPEZ OT Jan 31, 2019 10:48
[2019-01-31] MEDS ORDERED: ASPI-999 PO (11:49)
[2019-01-31] MEDS ORDERED: ATOR40TA PO (11:49)
[2019-01-31] MEDS ORDERED: LISI-556 PO (11:49)
[2019-01-31] MEDS ORDERED: FEN12TD TD (11:49)
[2019-01-31] MEDS ORDERED: METO-395 PO (11:49)
[2019-01-31] MEDS ORDERED: TRAM50TA2 PO (11:49)
[2019-01-31] MEDS ORDERED: Nitroglycerin SL (11:49)
[2019-01-31] MEDS ORDERED: LACT1CAP7 PO (11:49)
[2019-01-31] MEDS ORDERED: PANT40TA2 PO (11:49)
[2019-01-31] MEDS ORDERED: ACET325T49 PO (11:49)
--- NOTE | 2019-01-31 11:51 | Discharge Summary-Hospitalist ---
Diagnosis/Chief Complaint Date of Admission Jan 23, 2019 at 12:07 Date of Discharge Discharge Date: Jan 31, 2019 Admission Diagnosis Sepsis Discharge Diagnosis (1) GI bleed Status: Acute (2) Transfusion of blood during current hospitalization Status: Acute (3) Hypokalemia Status: Acute (4) Elevated troponin Status: Acute (5) Left knee pain Status: Acute (6) Generalized weakness Status: Acute (7) Urinary tract infection Status: Acute Discharge Summary Discharge Physical Exam Allergies: Coded Allergies: Penicillins (Verified Allergy, Severe, HIVES, 11/04/16) sulfamethoxazole (Verified Allergy, Severe, 11/04/16) SEIZURE trimethoprim (Verified Allergy, Severe, 11/04/16) SEIZURE Vitals & I&Os Vital Signs Date Time Temp Pulse Resp B/P (MAP) Pulse Ox O2 Delivery O2 Flow Rate FiO2 01/31/19 15:57 80 16 132/70 96 Room Air 01/31/19 15:26 97.6 01/28/19 19:00 2.00 01/28/19 08:00 98 General Appearance: No Apparent Distress, WD/WN, Chronically ill Respiratory: Chest Non Tender, Lungs Clear, Normal Breath Sounds, No Accessory Muscle Use, No Respiratory Distress Cardiovascular: Regular Rate, Rhythm, No Edema, No Gallop, No JVD, No Murmur, Normal Peripheral Pulses Neurologic/Psychiatric: Alert, Oriented x3, No Motor/Sensory Deficits, Normal Mood/Affect Hospital Course Was the Problem List Reviewed?: Yes Hospital course: Patient had a lengthy and convoluted hospital course when she was admitted after a fall for knee pain which turned into an ICU stay due to GI bleed with rectal bleeding and subsequent endoscopy that showed gastric ulcers. Patient did sustain an elevated troponin during the hospital stay due to stress response and cardiology was consulted. Overall she tolerated the hospital course well but due to the fact of her weakened state she was deemed stable for care home facility and she was discharged and that likely will be the per minute resident's of the patient in the future. Labs (last 24 hrs) Microbiology 01/23/19 Blood Culture - Final, Complete No growth 01/24/19 Influenza Types A,B Antigen (YIFAN) - Final, Complete 01/23/19 Urine Culture - Final, Complete Escherichia coli Patient resulted labs reviewed. Pending Labs Imaging: Reviewed Imaging Report Discussion & Recommendations Discharge Planning: <30 minutes discharge planning Discharge Home Medications: Active Scripts Active Protonix (Pantoprazole Sodium) 40 Mg Tablet.dr 40 Mg PO BID 90 Days Acidophilus-Pectin Capsule (Lactobacillus Acidophilus/Pect) 1 Each Capsule 2 Each PO TIDWM 7 Days Acetaminophen 325 Mg Tablet 650 Mg PO Q6H PRN 90 Days Tramadol HCl 50 Mg Tablet 50 Mg PO TID PRN Duragesic Patch 12MCG (Fentanyl) 12 Mcg Patch 12 Mcg TD Q72H Aspirin 81 Mg Tab.chew 81 Mg PO Q48H 90 Days Lisinopril 5 Mg Tablet 5 Mg PO DAILY 90 Days Metoprolol Succinate 100 Mg Tab.er.24h 100 Mg PO DAILY 90 Days [Nitroglycerin] 0.4 MG Btl 0 Mg SL NEEDED PRN 90 Days Lipitor (Atorvastatin Calcium) 40 Mg Tablet 20 Mg PO HS 90 Days Reported Colace (Docusate Sodium) 100 Mg Capsule 100 Mg PO DAILY Magnesium (Magnesium Oxide) 400 Mg Tablet 400 Mg PO DAILY Potassium (Potassium Gluconate) 99 Mg Tablet 99 Mg PO DAILY Instructions to patient/family Please see electronic discharge instructions given to patient. Clinical Quality Measures DVT/VTE Risk/Contraindication: Risk Factor Score Per Nursin RFS Level Per Nursing on Admit: 4+=Very High Problem Qualifiers (1) GI bleed: GI bleed type/associated pathology: unspecified gastrointestinal hemorrhage type Qualified Codes: K92.2 - Gastrointestinal hemorrhage, unspecified (2) Left knee pain: Chronicity: acute Qualified Codes: M25.562 - Pain in left knee (3) Urinary tract infection: Urinary tract infection type: site unspecified Hematuria presence: without hematuria Qualified Codes: N39.0 - Urinary tract infection, site not specified DORI WATKINS DO Jan 31, 2019 11:51
[2019-01-31 12:00] VITALS: BP 145/72
--- NOTE | 2019-01-31 13:00 | NUR ---
Report called to Zhane, nurse at [facility].
[2019-01-31] MEDS: fentaNYL PATCH 12 MCG (DURAGESIC) TD SCH (14:51)
[2019-01-31 15:26] VITALS: BP 135/77
[2019-01-31 15:57] VITALS: BP 132/70
== END 2019-01-31 15:55 | DRG 871 ==
LOC: EDUNIT# 10:06 → ER 10:07 → 4TH 12:07 → ICU 01-28 07:53 → 4TH 01-30 10:40 → ICU 01-30 11:25
PROVIDERS: ADMIT Family Medicine; ATTEND Family Medicine
PROC: 0DJ08ZZ Inspection of Upper Intestinal Tract, Via Natural or Artificial Opening Endoscopic (ICD-10-PCS; principal; 2019-01-29 15:52)
PROC: 0DJD8ZZ Inspection of Lower Intestinal Tract, Via Natural or Artificial Opening Endoscopic (ICD-10-PCS; 2019-01-29 15:52)
DX: A41.51 Sepsis due to Escherichia coli [E. coli] (principal); N39.0 Urinary tract infection, site not specified; K25.4 Chronic or unspecified gastric ulcer with hemorrhage; K26.4 Chronic or unspecified duodenal ulcer with hemorrhage; K22.11 Ulcer of esophagus with bleeding; I21.4 Non-ST elevation (NSTEMI) myocardial infarction; K57.51 Diverticulosis of both small and large intestine without perforation or abscess with bleeding; S83.012A Lateral subluxation of left patella, initial encounter; S99.911A Unspecified injury of right ankle, initial encounter; S00.03XA Contusion of scalp, initial encounter; I25.10 Atherosclerotic heart disease of native coronary artery without angina pectoris; I25.5 Ischemic cardiomyopathy; I25.2 Old myocardial infarction; M32.9 Systemic lupus erythematosus, unspecified; M80.08XD Age-related osteoporosis with current pathological fracture, vertebra(e), subsequent encounter for fracture with routine healing; M10.9 Gout, unspecified; M19.91 Primary osteoarthritis, unspecified site; F03.90 Unspecified dementia, unspecified severity, without behavioral disturbance, psychotic disturbance, mood disturbance, and anxiety; E87.6 Hypokalemia; J30.2 Other seasonal allergic rhinitis; I08.1 Rheumatic disorders of both mitral and tricuspid valves; R53.1 Weakness; W19.XXXA Unspecified fall, initial encounter; Z60.2 Problems related to living alone; Z79.02 Long term (current) use of antithrombotics/antiplatelets; Z79.82 Long term (current) use of aspirin
CPT/HCPCS: 36415; 51702; 71045; 71275; 72170; 73562; 73610; 73700; 73721; 80048; 80053; 80061; 81000; 83605; 83735; 84100; 84443; 84484; 85007; 85014; 85018; 85025; 85027; 85610; 85730; 86850; 86900; 86901; 86920; 87040; 87077; 87088; 87186; 87804; 93005; 93306; 96361; 96374

== ENCOUNTER 2019-02-07 11:56 | Emergency (ER) | payer MEDICARE ==
[~2019-02-07] VITALS: Ht 154.9 cm; Wt 59.0 kg
[~2019-02-07 11:56] MED LIST changes: +ACET325T49 PO; +ASPI-999 PO; +ATOR40TA PO; +DOCU-143 PO; +FEN12TD TD; +LACT1CAP7 PO; +LISI-556 PO; +MAGN400T39 PO; +METO-395 PO; +Nitroglycerin SL; +PANT40TA2 PO; +TRAM50TA2 PO
[2019-02-07] MEDS ORDERED: NS IV 1000 ML 1,000 ML ONE (12:19)
[2019-02-07] MEDS ORDERED: NS IV 1000 ML 1,000 ML IV ONE (12:19)
[2019-02-07 12:27] LABS: BASOPHILS % (AUTO) 0 % (0-10); EOSINOPHILS # (AUTO) 0.1 10^3/uL (0.0-0.3); EOSINOPHILS % (AUTO) 1 % (0-10); HEMATOCRIT 31 % (35-52); HEMOGLOBIN 9.5 G/DL (11.5-16.0); LYMPHOCYTES # (AUTO) 3.3 X 10^3 (1.0-4.0); LYMPHOCYTES % (AUTO) 29 % (12-44); MEAN CORPUSCULAR HEMOGLOBIN 25 PG (25-34); MEAN CORPUSCULAR HGB CONC 31 G/DL (32-36); MEAN CORPUSCULAR VOLUME 81 FL (80-99); MEAN PLATELET VOLUME 11.3 FL (7.4-10.4); MONOCYTES # (AUTO) 4.2 X 10^3 (0.0-1.0); MONOCYTES % (AUTO) 37 % (0-12); NEUTROPHILS # (AUTO) 3.7 X 10^3 (1.8-7.8); NEUTROPHILS % (AUTO) 33 % (42-75); PLATELET COUNT 614 10^3/uL (130-400); RED CELL DISTRIBUTION WIDTH 19.9 % (10.0-14.5); WHITE BLOOD COUNT 11.3 10^3/uL (4.3-11.0)
[2019-02-07] MEDS ORDERED: FAMOTIDINE 20MG/2ML IV (PEPCID) IVP ONE (12:30)
[2019-02-07] MEDS ORDERED: PANTOPRAZOLE 40 MG (PROTONIX) VIAL IV ONE (12:30)
[2019-02-07 12:39] LABS: ALANINE AMINOTRANSFERASE 13 U/L (0-55); ALKALINE PHOSPHATASE 99 U/L (40-136); BILIRUBIN,TOTAL 0.3 MG/DL (0.1-1.0); BUN/CREATININE RATIO 16; CALCIUM 7.9 MG/DL (8.5-10.1); CARBON DIOXIDE 22 MMOL/L (21-32); CHLORIDE 106 MMOL/L (98-107); CREATININE SERUM 0.58 MG/DL (0.60-1.30); GFR ESTIMATED > 60; GLUCOSE 107 MG/DL (70-105); POTASSIUM 3.7 MMOL/L (3.6-5.0); SODIUM 135 MMOL/L (135-145); TOTAL PROTEIN 6.4 GM/DL (6.4-8.2)
[2019-02-07 13:02] LABS: INR 1.4 (0.8-1.4); PROTHROMBIN TIME PATIENT 16.9 SEC (12.2-14.7)
[2019-02-07 13:05] LABS: ANISOCYTOSIS SLIGHT; BAND NEUTROPHILS 5 %; BASOPHILS % (MANUAL) 0 %; ELLIPT/OVALOCYTES SLIGHT; EOSINOPHILS % (MANUAL) 0 %; LYMPHOCYTES % (MANUAL) 21 %; MONOCYTES % (MANUAL) 29 %; NEUTROPHILS % (MANUAL) 45 %
[2019-02-07] MEDS ORDERED: IOHEXOL 350 MG/ML 100 ML (OMNIPAQUE 350) VIAL IV ONE (13:15)
[2019-02-07] MEDS ORDERED: NS 100 ML (IVPB) BAG IV ONE (13:15)
[2019-02-07] MEDS ORDERED: HOLD METFORMIN - RECEIVED CONTRAST 20 ML VIAL IV SCH (13:15)
[2019-02-07] MEDS ORDERED: fentaNYL INJECTION 100 MCG/2 ML AMP IVP ONE ×2 (13:30→16:00)
[2019-02-07 13:50] VITALS: BP 69/44
[2019-02-07 14:30] VITALS: BP_SYST 115; BP_SYST 116; BP_DIAS 61
--- NOTE | 2019-02-07 14:42 | ED GI ---
General Chief Complaint: Rect Problems Nursing Triage Note: PATIENT HERE FOR BLEEDING FROM HER RECTUM. HAD COLONOSCOPY A WEEK AGO. ASA WAS STOPPED AT THAT TIME DUE TO BLEEDING. Sepsis Screen: No Definite Risk Source of Information: Patient, Family, Old Records Exam Limitations: No Limitations History of Present Illness Date Seen by Provider: Feb 07, 2019 Time Seen by Provider: 14:40 Initial Comments This 83-year-old woman presents to the emergency room via EMS with complaints of onset of rectal urgency and bright red blood per rectum as well as passing of clots. She simultaneously developed some abdominal pain and cramping. Patient states she felt well this morning and then felt urgency while doing physical therapy. She is a resident at [facility]. She was recently admitted from January 23 through January 31. She had been admitted for sepsis and fall. While she was in the hospital she developed a GI bleed. She had upper and lower endoscopy performed by Dr. Arevalo revealing esophagitis with esophageal ulcer, stomach ulcer in the prepyloric region, duodenal ulcer, and colonic diverticuli. She required transfusion. Bleeding did eventually stop. Patient is not presently on any type of antiplatelet or anticoagulant therapy. Apparently there was some discussion during her prior hospital stay about transferred to [facility] for possible IR therapy. Patient does not want to transfer to any other facility. She states any procedures that cannot be done at [facility] she simply will refuse to have done. Based on those comments, a conversation about hospice followed. Patient is not opposed to the idea of hospice at this point. We will explore that further. Family wasn't part of that discussion as well. Allergies and Home Medications Allergies Coded Allergies: Penicillins (Verified Allergy, Severe, HIVES, 11/04/16) sulfamethoxazole (Verified Allergy, Severe, 11/04/16) SEIZURE trimethoprim (Verified Allergy, Severe, 11/04/16) SEIZURE Home Medications Acetaminophen 325 Mg Tablet, 650 MG PO Q6H PRN for PAIN-MILD Prescribed by: DORI WATKINS on 01/31/19 1149 Aspirin 81 Mg Tab.chew, 81 MG PO Q48H Prescribed by: DORI WATKINS on 01/31/19 1149 Atorvastatin Calcium 40 Mg Tablet, 20 MG PO HS Prescribed by: DORI WATKINS on 01/31/19 1149 Ciprofloxacin HCl 500 Mg Tablet, 500 MG PO BID Prescribed by: CHIO ROBLEDO on 02/07/19 1547 Docusate Sodium 100 Mg Capsule, 100 MG PO DAILY, (Reported) Fentanyl 12 Mcg Patch, 12 MCG TD Q72H Prescribed by: DORI WATKINS on 01/31/19 114 Lactobacillus Acidophilus/Pect 1 Each Capsule, 2 EACH PO TIDWM Prescribed by: DORI WATKINS on 01/31/19 114 Lisinopril 5 Mg Tablet, 5 MG PO DAILY Prescribed by: DORI WATKINS on 01/31/19 114 Magnesium Oxide 400 Mg Tablet, 400 MG PO DAILY, (Reported) Metoprolol Succinate 100 Mg Tab.er.24h, 100 MG PO DAILY Prescribed by: DORI WATKINS on 01/31/19 114 Metronidazole 500 Mg Tablet, 500 MG PO TID Prescribed by: CHIO ROBLEDO on 02/07/19 154 Pantoprazole Sodium 40 Mg Tablet.dr, 40 MG PO BID Prescribed by: DORI WATKINS on 01/31/19 114 Potassium Gluconate 99 Mg Tablet, 99 MG PO DAILY, (Reported) Tramadol HCl 50 Mg Tablet, 50 MG PO TID PRN for PAIN-MODERATE Prescribed by: DORI WATKINS on 01/31/19 114 [Nitroglycerin] 0.4 MG BTL, 0 MG SL NEEDED PRN for CHEST PAIN Prescribed by: DORI WATKINS on 01/31/191148 Patient Home Medication List Home Medication List Reviewed: Yes Review of Systems Review of Systems Constitutional: no symptoms reported EENTM: No Symptoms Reported Respiratory: No Symptoms Reported Cardiovascular: No Symptoms Reported Gastrointestinal: See HPI Genitourinary: No Symptoms Reported Musculoskeletal: no symptoms reported Skin: no symptoms reported Psychiatric/Neurological: No Symptoms Reported Endocrine: No Symptoms Reported Hematologic/Lymphatic: See HPI Past Dhiakwa-Jbgjin-Jqftgw Hx Patient Social History Recent Foreign Travel: No Contact w/Someone Who Travel: No Recent Infectious Disease Expo: No Recent Hopitalizations: No Immunizations Up To Date Tetanus Booster (TDap): Unknown PED Vaccines UTD: Yes Seasonal Allergies Seasonal Allergies: Yes Past Medical History Surgeries: Yes Appendectomy, Hysterectomy, Tubal Ligation Respiratory: No Currently Using CPAP: No Currently Using BIPAP: No Cardiac: Yes (WAS TOLD THIS 2016 ( SHE DIDN'T KNOW ABOUT IT )) Heart Attack Neurological: No Reproductive Disorders: No Female Reproductive Disorders: Denies Sexually Transmitted Disease: No HIV/AIDS: No Genitourinary: No Gastrointestinal: Yes Gastrointestinal Bleed, Diverticulosis, Esophagitis, Ulcer (stomach, duodenum, esophagus) Musculoskeletal: Yes (KNEE PAIN) Osteoporosis, Arthritis, Back Injury, Chronic Back Pain, Fractures, Gout Endocrine: Yes Lupus HEENT: No Loss of Vision: Denies Hearing Impairment: Hard of Hearing Cancer: No Psychosocial: No Integumentary: Yes (RASHES FROM LUPUS) Blood Disorders: No Adverse Reaction/Blood Tranf: No Family Medical History Asthma 19 FATHER Diabetes mellitus 19 FATHER 19 MOTHER G8 SISTER Hypertension 19 MOTHER Myocardial infarction 19 FATHER ( AT 62 FROM [place]) Neoplasm 19 MOTHER (BREAST CANCER WITH MASTECTOMY) Physical Exam Vital Signs Vital Signs - First Documented 02/07/19 02/07/19 12:09 14:30 Temp 97.9 Pulse 73 Resp 18 B/P (MAP) 111/66 (81) Pulse Ox 97 O2 Flow Rate 2.00 Capillary Refill : Less Than 3 Seconds Height/Weight/BMI Height: 5'1.00" Weight: 130lbs. 0oz. 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 tested, no motor/sensory deficits, alert, normal mood/affect, oriented x 3 Skin: normal color, warm/dry Progress/Results/Core Measures Results/Orders Lab Results Laboratory Tests Test 02/07/19 12:10 02/07/19 12:45 Range/Units White Blood Count 11.3 H 4.3-11.0 10^3/uL Red Blood Count 3.80 L 4.35-5.85 10^6/uL Hemoglobin 9.5 L 11.5-16.0 G/DL Hematocrit 31 L 35-52 % Mean Corpuscular Volume 81 80-99 FL Mean Corpuscular Hemoglobin 25 25-34 PG Mean Corpuscular Hemoglobin Concent 31 L 32-36 G/DL Red Cell Distribution Width 19.9 H 10.0-14.5 % Platelet Count 614 H 130-400 10^3/uL Mean Platelet Volume 11.3 H 7.4-10.4 FL Neutrophils (%) (Auto) 33 L 42-75 % Lymphocytes (%) (Auto) 29 12-44 % Monocytes (%) (Auto) 37 H 0-12 % Eosinophils (%) (Auto) 1 0-10 % Basophils (%) (Auto) 0 0-10 % Neutrophils # (Auto) 3.7 1.8-7.8 X 10^3 Lymphocytes # (Auto) 3.3 1.0-4.0 X 10^3 Monocytes # (Auto) 4.2 H 0.0-1.0 X 10^3 Eosinophils # (Auto) 0.1 0.0-0.3 10^3/uL Basophils # (Auto) 0.0 0.0-0.1 10^3/uL Neutrophils % (Manual) 45 % Lymphocytes % (Manual) 21 % Monocytes % (Manual) 29 % Eosinophils % (Manual) 0 % Basophils % (Manual) 0 % Band Neutrophils 5 % Anisocytosis SLIGHT Elliptocytes SLIGHT Sodium Level 135 135-145 MMOL/L Potassium Level 3.7 3.6-5.0 MMOL/L Chloride Level 106 98-107 MMOL/L Carbon Dioxide Level 22 21-32 MMOL/L Anion Gap 7 5-14 MMOL/L Blood Urea Nitrogen 9 7-18 MG/DL Creatinine 0.58 L 0.60-1.30 MG/DL Estimat Glomerular Filtration Rate > 60 BUN/Creatinine Ratio 16 Glucose Level 107 H 70-105 MG/DL Calcium Level 7.9 L 8.5-10.1 MG/DL Corrected Calcium 8.7 8.5-10.1 MG/DL Total Bilirubin 0.3 0.1-1.0 MG/DL Aspartate Amino Transf (AST/SGOT) 23 5-34 U/L Alanine Aminotransferase (ALT/SGPT) 13 0-55 U/L Alkaline Phosphatase 99 40-136 U/L Total Protein 6.4 6.4-8.2 GM/DL Albumin 3.0 L 3.2-4.5 GM/DL Prothrombin Time 16.9 H 12.2-14.7 SEC INR Comment 1.4 0.8-1.4 Activated Partial Thromboplast Time 34 24-35 SEC My Orders Orders - CHIO JAIMES MD Cbc With Automated Diff (02/07/19 12:19) Comprehensive Metabolic Panel (02/07/19 12:19) Protime With Inr (02/07/19 12:19) Partial Thromboplastin Time (02/07/19 12:19) Saline Lock/Iv-Start (02/07/19 12:19) Ns Iv 1000 Ml (Sodium Chloride 0.9%) (02/07/19 12:19) Fresh Frozen Plasma (02/07/19 12:19) Red Cells Leukocytes Reduced (02/07/19 12:22) Type And Screen (02/07/19 12:19) Pantoprazole Injection (Protonix Injecti (02/07/19 12:30) Famotidine Injection (Pepcid Injection) (02/07/19 12:30) Manual Differential (02/07/19 12:10) Ct Abdomen/Pelvis W (02/07/19 13:08) Iohexol Injection (Omnipaque 350 Mg/Ml 1 (02/07/19 13:15) Received Contrast (Contrast Received) (02/07/19 13:15) Ns (Ivpb) (Sodium Chloride 0.9% Ivpb Bag (02/07/19 13:15) Fentanyl Injection (Sublimaze Injection (02/07/19 13:30) Ciprofloxacin Tablet (Cipro Tablet) (02/07/19 15:45) Metronidazole Tablet (Flagyl Tablet) (02/07/19 15:45) Fentanyl Injection (Sublimaze Injection (02/07/19 16:00) Medications Given in ED Current Medications Medications Dose Ordered Sig/Iris Route Start Time Stop Time Status Last Admin Dose Admin Ciprofloxacin 500 mg ONCE ONCE PO 02/07/19 15:45 02/07/19 15:46 DC 02/07/19 15:51 500 MG Famotidine 20 mg ONCE ONCE IVP 02/07/19 12:30 02/07/19 12:31 DC 02/07/19 12:50 20 MG Fentanyl Citrate 25 mcg ONCE ONCE IVP 02/07/19 13:30 02/07/19 13:31 DC 02/07/19 14:00 25 MCG Fentanyl Citrate 25 mcg ONCE ONCE IVP 02/07/19 16:00 02/07/19 16:01 DC 02/07/19 16:35 25 MCG Iohexol 100 ml ONCE ONCE IV 02/07/19 13:15 02/07/19 13:30 DC 02/07/19 14:11 100 ML Metronidazole 500 mg ONCE ONCE PO 02/07/19 15:45 02/07/19 15:46 DC 02/07/19 15:51 500 MG Pantoprazole 80 mg ONCE ONCE IV 02/07/19 12:30 02/07/19 12:31 DC 02/07/19 12:50 80 MG Sodium Chloride 100 ml ONCE ONCE IV 02/07/19 13:15 02/07/19 13:30 DC 02/07/19 14:11 80 ML Sodium Chloride 1,000 ml @ 0 mls/hr Q0M ONCE IV 02/07/19 12:19 02/07/19 12:23 DC 02/07/19 12:19 0 MLS/HR Vital Signs/I&O 02/07/19 02/07/19 02/07/19 02/07/19 12:09 13:50 14:30 14:30 Temp 97.9 97.7 97.7 96.6 Pulse 73 67 71 69 Resp 18 14 18 14 B/P (MAP) 111/66 (81) 69/44 116/61 115/61 Pulse Ox 97 99 98 99 O2 Flow Rate 2.00 02/07/19 02/07/19 02/07/19 02/07/19 14:45 15:45 16:00 16:38 Temp 98.0 97.9 97.9 96.6 Pulse 78 80 74 69 Resp 18 18 16 14 B/P (MAP) 130/72 130/76 140/67 140/67 (91) Pulse Ox 99 98 99 99 O2 Flow Rate 2.00 Blood Pressure Mean: 79 Progress Progress Note #1: Progress Note Patient was seen and examined upon arrival. Shortly after assessment she became hypotensive and had near syncope. 1 L of IV fluid was administered in a bolus. A second IV line was initiated. O+ blood was called for. It was not needed as blood pressure did rebound with IV fluids. A crossmatch of 2 units of packed red blood cells and 2 units of FFP was ordered. Dr. Moscoso was notified of patient and her condition. He is on standby and in the building. Patient asserts she would like a DO NOT RESUSCITATE order. Care management will talk with patient and family about hospice. Progress Note #2: Progress Note Patient continued to have rectal bleeding in the ER. Because of the hypotensive episode, transfusion was pursued. Patient received one unit of PRBC and one unit of plasma. During this process, discussion was ongoing with patient and family regarding disposition. Ultimately after talking with a palliative care patient admitting representative, the patient and family [facility] demonstrated colitis. They elected to pursue treatment of the colitis with antibiotics for patient comfort. Cipro Flagyl were given in the ER and a prescription was provided for further treatment. The palliative care team made arrangements with hospice and [facility]. Her pain was treated with fentanyl. Patient was comfortable with the decisions and the decision was unanimously agreed upon amongst her, her 2 daughters, and the ER team. Diagnostic Imaging Diagonstic Imaging: CT Plain Films/CT/US/NM/MRI: abdomen, pelvis Comments CT abdomen and pelvis viewed by me and report reviewed. See report below: NAME: BART RICHARDSON [facility] REC#: [id number] PT STATUS: REG ER : 1935 PHYSICIAN: CHIO JAIMES MD ADMIT DATE: 02/07/19/ER Signed Date of Exam: 02/07/19 CT ABDOMEN/PELVIS W PROCEDURE: CT abdomen and pelvis with contrast. TECHNIQUE: Multiple contiguous axial images were obtained through the abdomen and pelvis after administration of intravenous contrast. INDICATION: Rectal bleeding. COMPARISON: None. FINDINGS: There is an enlarging left-sided effusion with dependent atelectasis. The effusion in the right lung base has resolved. There is slight cardiac enlargement. The gallbladder, liver, spleen, pancreas adrenal glands and kidneys are grossly unremarkable. There is no mesenteric or retroperitoneal lymphadenopathy. There is mild atherosclerotic disease of the abdominal aorta. Visceral branch vessels are widely patent. Course and caliber of the small bowel are normal. Colon demonstrates moderate diverticulosis of the sigmoid colon without overt diverticulitis. However, the distal sigmoid and rectum demonstrates some moderate inflammatory change involving the bowel wall and surrounding fat. This likely represents colitis. There is no abscess or obstruction. There is no obvious active hemorrhage. The uterus is surgically absent. Distal ureters and urinary bladder are normal. The appendix is normal. There is a chronic T12 compression fracture. Otherwise, osseous structures are age-appropriate. IMPRESSION: 1. Inflammatory change involving the distal sigmoid and rectum, likely colitis. Followup is recommended. No obvious mass is identified. 2. Diverticulosis of the sigmoid colon without overt diverticulitis. No abscess is identified. 3. Enlarging left-sided effusion with atelectasis, resolved right-sided effusion. 4. Surgically absent uterus. Dictated by: Dictated on workstation # [id number] Dict: 02/07/19 1450 Trans: 02/07/19 1527 Interpreted by: DUKE HOOKER Electronically signed by: DUKE HOOKER 02/07/19 1527 Departure Impression Primary Impression: Gastrointestinal bleed Qualified Codes: K92.2 - Gastrointestinal hemorrhage, unspecified Additional Impressions: Hemorrhagic shock Colitis Disposition: SNF Condition: Improved Departure-Patient Inst. Referrals: SHIV NESBITT MD (PCP/Family) Primary Care Physician Patient Instructions: Gastrointestinal Bleeding Add. Discharge Instructions: Defer further care management to [facility]. Use antibiotics as prescribed. All discharge instructions reviewed with patient and/or family. Voiced understanding. Scripts Metronidazole (Flagyl) 500 Mg Tablet 500 MG PO TID, #20 TAB Prov: CHIO JAIMES MD 02/07/19 Ciprofloxacin HCl (Cipro) 500 Mg Tablet 500 MG PO BID, #14 TAB Prov: CHIO JAIMES MD 02/07/19 CHIO JAIMES MD Feb 07, 2019 14:42
[2019-02-07 14:45] VITALS: BP 130/72
--- NOTE | 2019-02-07 15:20 | Diagnostic Imaging Report ---
PROCEDURE: CT abdomen and pelvis with contrast. TECHNIQUE: Multiple contiguous axial images were obtained through the abdomen and pelvis after administration of intravenous contrast. INDICATION: Rectal bleeding. COMPARISON: None. FINDINGS: There is an enlarging left-sided effusion with dependent atelectasis. The effusion in the right lung base has resolved. There is slight cardiac enlargement. The gallbladder, liver, spleen, pancreas adrenal glands and kidneys are grossly unremarkable. There is no mesenteric or retroperitoneal lymphadenopathy. There is mild atherosclerotic disease of the abdominal aorta. Visceral branch vessels are widely patent. Course and caliber of the small bowel are normal. Colon demonstrates moderate diverticulosis of the sigmoid colon without overt diverticulitis. However, the distal sigmoid and rectum demonstrates some moderate inflammatory change involving the bowel wall and surrounding fat. This likely represents colitis. There is no abscess or obstruction. There is no obvious active hemorrhage. The uterus is surgically absent. Distal ureters and urinary bladder are normal. The appendix is normal. There is a chronic T12 compression fracture. Otherwise, osseous structures are age-appropriate. IMPRESSION: 1. Inflammatory change involving the distal sigmoid and rectum, likely colitis. Followup is recommended. No obvious mass is identified. 2. Diverticulosis of the sigmoid colon without overt diverticulitis. No abscess is identified. 3. Enlarging left-sided effusion with atelectasis, resolved right-sided effusion. 4. Surgically absent uterus. Dictated by: Dictated on workstation # [id number]
[2019-02-07 15:45] VITALS: BP 130/76
[2019-02-07] MEDS ORDERED: metroNIDAZOLE 500 MG (FLAGYL) TAB PO ONE (15:45)
[2019-02-07] MEDS ORDERED: CIPROFLOXACIN 500 MG (CIPRO) TABLET PO ONE (15:45)
[2019-02-07] MEDS ORDERED: CIPR-225 PO (15:47)
[2019-02-07] MEDS ORDERED: METR500T PO (15:47)
[2019-02-07 16:00] VITALS: BP 140/67
[2019-02-07 16:38] VITALS: BP 140/67
== END 2019-02-07 16:38 ==
LOC: EDUNIT# 11:56 → ER 11:57
DX: K92.2 Gastrointestinal hemorrhage, unspecified (principal); K52.9 Noninfective gastroenteritis and colitis, unspecified; R57.8 Other shock; I25.2 Old myocardial infarction; M81.0 Age-related osteoporosis without current pathological fracture; M10.9 Gout, unspecified; M32.9 Systemic lupus erythematosus, unspecified; Z87.19 Personal history of other diseases of the digestive system; Z88.0 Allergy status to penicillin; Z82.49 Family history of ischemic heart disease and other diseases of the circulatory system; Z80.3 Family history of malignant neoplasm of breast; Z88.2 Allergy status to sulfonamides; Z88.8 Allergy status to other drugs, medicaments and biological substances; Z79.82 Long term (current) use of aspirin; Z90.710 Acquired absence of both cervix and uterus; Z90.49 Acquired absence of other specified parts of digestive tract; Z98.51 Tubal ligation status
CPT/HCPCS: 36415; 36430; 74177; 80053; 85007; 85027; 85610; 85730; 86850; 86900; 86901; 86920

== ENCOUNTER → 2019-07-16 | Outpatient (CLI) | payer MEDICARE ==
[~2019-07-16] MED LIST changes: +CIPR-225 PO; +METR500T PO
[2019-07-16 12:16] LABS: ABSOLUTE RETIC # 73 10e9/L (24-90); BASOPHILS % (AUTO) 0 % (0-10); EOSINOPHILS # (AUTO) 0.2 10^3/uL (0.0-0.3); EOSINOPHILS % (AUTO) 1 % (0-10); HEMATOCRIT 36 % (35-52); HEMOGLOBIN 10.5 G/DL (11.5-16.0); LYMPHOCYTES # (AUTO) 3.6 X 10^3 (1.0-4.0); LYMPHOCYTES % (AUTO) 22 % (12-44); MEAN CORPUSCULAR HEMOGLOBIN 18 PG (25-34); MEAN CORPUSCULAR HGB CONC 29 G/DL (32-36); MEAN CORPUSCULAR VOLUME 62 FL (80-99); MONOCYTES # (AUTO) 7.8 X 10^3 (0.0-1.0); MONOCYTES % (AUTO) 48 % (0-12); NEUTROPHILS # (AUTO) 4.7 X 10^3 (1.8-7.8); NEUTROPHILS % (AUTO) 29 % (42-75); PLATELET COUNT 534 10^3/uL (130-400); RED CELL DISTRIBUTION WIDTH 23.9 % (10.0-14.5); RETICULOCYTE % 1.27 % (0.50-2.40); WHITE BLOOD COUNT 16.3 10^3/uL (4.3-11.0)
[2019-07-16 13:27] LABS: BAND NEUTROPHILS 0 %; BASOPHILS % (MANUAL) 0 %; EOSINOPHILS % (MANUAL) 0 %; HYPOCHROMASIA MODERATE; LYMPHOCYTES % (MANUAL) 13 %; MONOCYTES % (MANUAL) 28 %; NEUTROPHILS % (MANUAL) 45 %; POLYCHROMASIA SLIGHT; REACTIVE LYMPHOCYTES 14 %
[2019-07-16 13:28] LABS: ANISOCYTOSIS MARKED; MICROCYTOSIS MODERATE; TARGET CELLS SLIGHT
== END ==
LOC: LABNPT 09:45
PROVIDERS: ATTEND Internal Medicine
DX: K25.4 Chronic or unspecified gastric ulcer with hemorrhage (principal); M32.9 Systemic lupus erythematosus, unspecified
CPT/HCPCS: 85007; 85027; 85045

== ENCOUNTER 2019-08-06 06:55 | Inpatient (IN) | payer MEDICARE, MEDICAID ==
[~2019-08-06] VITALS: Ht 160 cm; Wt 57.7 kg
[2019-08-06] MEDS ORDERED: fentaNYL INJECTION 100 MCG/2 ML AMP IVP ONE (07:15)
[2019-08-06] MEDS ORDERED: ONDANSETRON 4 MG/2 ML (SDV) Z0FRAN IVP ONE (07:15)
[2019-08-06 07:23] LABS: BASOPHILS % (AUTO) 0 % (0-10); EOSINOPHILS # (AUTO) 0.1 10^3/uL (0.0-0.3); EOSINOPHILS % (AUTO) 1 % (0-10); HEMATOCRIT 38 % (35-52); HEMOGLOBIN 11.4 G/DL (11.5-16.0); LYMPHOCYTES # (AUTO) 4.3 X 10^3 (1.0-4.0); LYMPHOCYTES % (AUTO) 28 % (12-44); MEAN CORPUSCULAR HEMOGLOBIN 18 PG (25-34); MEAN CORPUSCULAR HGB CONC 30 G/DL (32-36); MEAN CORPUSCULAR VOLUME 62 FL (80-99); MONOCYTES # (AUTO) 6.1 X 10^3 (0.0-1.0); MONOCYTES % (AUTO) 39 % (0-12); NEUTROPHILS # (AUTO) 4.9 X 10^3 (1.8-7.8); NEUTROPHILS % (AUTO) 32 % (42-75); PLATELET COUNT 397 10^3/uL (130-400); RED CELL DISTRIBUTION WIDTH 23.4 % (10.0-14.5); WHITE BLOOD COUNT 15.5 10^3/uL (4.3-11.0)
--- NOTE | 2019-08-06 07:35 | NUR ---
PATIENT PLACED ON 02 2L AFTER FENTYNYL
[2019-08-06 07:43] LABS: ALANINE AMINOTRANSFERASE 15 U/L (0-55); ALKALINE PHOSPHATASE 115 U/L (40-136); BILIRUBIN,TOTAL 0.3 MG/DL (0.1-1.0); BUN/CREATININE RATIO 21; CALCIUM 9.7 MG/DL (8.5-10.1); CARBON DIOXIDE 19 MMOL/L (21-32); CHLORIDE 105 MMOL/L (98-107); CREATININE SERUM 0.87 MG/DL (0.60-1.30); GFR ESTIMATED > 60; GLUCOSE 106 MG/DL (70-105); LIPASE 14 U/L (8-78); POTASSIUM 4.1 MMOL/L (3.6-5.0); SODIUM 138 MMOL/L (135-145); TOTAL PROTEIN 8.6 GM/DL (6.4-8.2)
[2019-08-06] MEDS ORDERED: ONDN4T PO (07:50)
[2019-08-06] MEDS ORDERED: MELA1TAB9 PO (07:50)
[2019-08-06] MEDS ORDERED: RANI-514 PO (07:50)
[2019-08-06] MEDS ORDERED: SIME80TA16 PO ×2 (07:50→12:54)
[2019-08-06] MEDS ORDERED: LOPE2TAB32 PO (07:50)
[2019-08-06 07:55] LABS: BAND NEUTROPHILS 3 %; LYMPHOCYTES % (MANUAL) 28 %; MONOCYTES % (MANUAL) 27 %; NEUTROPHILS % (MANUAL) 42 %
[2019-08-06 07:56] LABS: ANISOCYTOSIS MODERATE; HYPOCHROMASIA SLIGHT; MICROCYTOSIS MARKED; POIKILOCYTOSIS SLIGHT; TARGET CELLS SLIGHT
[2019-08-06] MEDS ORDERED: PROMETHAZINE INJ 25 MG/ML (PHENERGAN) AMP IVP ONE ×2 (08:00→09:45)
[2019-08-06] MEDS ORDERED: HOLD METFORMIN - RECEIVED CONTRAST 20 ML VIAL IV SCH (08:00)
[2019-08-06] MEDS ORDERED: IOHEXOL 350 MG/ML 100 ML (OMNIPAQUE 350) VIAL IV ONE (08:00)
[2019-08-06] MEDS ORDERED: NS 100 ML (IVPB) BAG IV ONE (08:00)
[2019-08-06] MEDS: PROMETHAZINE INJ 25 MG/ML (PHENERGAN) AMP ONE ×2 (08:04→08:05)
--- NOTE | 2019-08-06 08:19 | ED Abdominal Pain ---
General Chief Complaint: Abdominal/GI Problems Stated Complaint: SEVERE ABD PAIN Nursing Triage Note: TO ROOM PER EMS FROM [facility]. C/O ABD PAIN Sepsis Screen: No Definite Risk Source of Information: Patient Exam Limitations: No Limitations History of Present Illness Date Seen by Provider: Aug 06, 2019 Time Seen by Provider: 06:57 Initial Comments This 84-year-old woman presents to the emergency room via EMS from [facility] for reasons of intense abdominal pain. She rated her pain as a 10. She states the pain started suddenly in the right lower quadrant and right central abdomen this morning during a bowel movement. She reports her bowel movements have been dark which is fairly typical for her. She has been nauseated without vomiting. She has a history of diverticulitis and wonders if this might be related. She is afebrile. Allergies and Home Medications Allergies Coded Allergies: Penicillins (Verified Allergy, Severe, HIVES, 11/04/16) sulfamethoxazole (Verified Allergy, Severe, 11/04/16) SEIZURE trimethoprim (Verified Allergy, Severe, 11/04/16) SEIZURE nut - unspecified (Verified Allergy, Unknown, 08/06/19) Uncoded Allergies: popcorn (Allergy, Unknown, 08/06/19) seeds (Allergy, Unknown, 08/06/19) Home Medications Acetaminophen 325 Mg Tablet, 650 MG PO Q6H PRN for PAIN-MILD, (Reported) Atorvastatin Calcium 20 Mg Tablet, 20 MG PO HS, (Reported) Docusate Sodium 100 Mg Capsule, 100 MG PO DAILY, (Reported) Lisinopril 5 Mg Tablet, 5 MG PO DAILY, (Reported) HOLD IF SBP<100 OR DBP<60 Loperamide HCl 2 Mg Tablet, 2 MG PO Q6H PRN for DIARRHEA, (Reported) Magnesium Hydroxide 400 Mg/5 Ml Oral.susp, 30 ML PO DAILY PRN for CONSTIPATION- 7TH LINE, (Reported) Magnesium Oxide 400 Mg Tablet, 400 MG PO DAILY, (Reported) Melatonin 1 Mg Tablet, 2 MG PO HS PRN for INSOMNIA, (Reported) Metoprolol Tartrate 100 Mg Tablet, 100 MG PO DAILY, (Reported) HOLD IF PULSE <60 Nitroglycerin 0.4 Mg Tab.subl, 0.4 MG SL UD PRN for CHEST PAIN, (Reported) Ondansetron HCl 4 Mg Tab, 4 MG PO Q8H PRN for NAUSEA/VOMITING-1ST LINE, (Reported) Potassium Gluconate 99 Mg Tablet, 99 MG PO DAILY, (Reported) Ranitidine HCl 75 Mg Tablet, 75 MG PO BID, (Reported) Simethicone 80 Mg Tab.chew, 80 MG PO AC, (Reported) Simethicone 80 Mg Tab.chew, 80 MG PO DAILY PRN for GAS, (Reported) Tramadol HCl 50 Mg Tablet, 50 MG PO Q8H PRN for PAIN-MODERATE, (Reported) Patient Home Medication List Home Medication List Reviewed: Yes Review of Systems Review of Systems Constitutional: no symptoms reported EENTM: No Symptoms Reported Respiratory: No Symptoms Reported Cardiovascular: No Symptoms Reported Gastrointestinal: See HPI Genitourinary: No Symptoms Reported Musculoskeletal: no symptoms reported Skin: no symptoms reported Psychiatric/Neurological: No Symptoms Reported Endocrine: No Symptoms Reported Hematologic/Lymphatic: No Symptoms Reported Past Ngxwtyc-Paprcf-Xqgycy Hx Past Med/Social Hx: Reviewed and Corrections made Patient Social History Alcohol Use: Denies Use Recreational Drug Use: No Smoking Status: Never a Smoker 2nd Hand Smoke Exposure: No Recent Foreign Travel: No Contact w/Someone Who Travel: No Recent Infectious Disease Expo: No Recent Hopitalizations: No Immunizations Up To Date Tetanus Booster (TDap): Unknown PED Vaccines UTD: Yes Seasonal Allergies Seasonal Allergies: Yes Past Medical History Surgeries: Yes Appendectomy, Hysterectomy, Tubal Ligation Respiratory: No Currently Using CPAP: No Currently Using BIPAP: No Cardiac: Yes (WAS TOLD THIS 2016 ( SHE DIDN'T KNOW ABOUT IT )) Coronary Artery Disease, Heart Attack Neurological: No : No Reproductive Disorders: No Female Reproductive Disorders: Denies BPM ARCHITECT History: Hysterectomy Sexually Transmitted Disease: No HIV/AIDS: No Genitourinary: No Gastrointestinal: Yes Gastrointestinal Bleed, Diverticulosis (with history of diverticulitis), Esophagitis, Ulcer Musculoskeletal: Yes (KNEE PAIN, compression fractures) Osteoporosis, Arthritis, Back Injury, Chronic Back Pain, Fractures, Gout Endocrine: Yes Lupus HEENT: No Loss of Vision: Denies Hearing Impairment: Hard of Hearing Cancer: No Psychosocial: No Integumentary: Yes (RASHES FROM LUPUS) Blood Disorders: No Adverse Reaction/Blood Tranf: No Family Medical History Reviewed Nursing Family Hx Asthma 19 FATHER Diabetes mellitus 19 FATHER 19 MOTHER G8 SISTER Hypertension 19 MOTHER Myocardial infarction 19 FATHER ( AT 62 FROM [place]) Neoplasm 19 MOTHER (BREAST CANCER WITH MASTECTOMY) Physical Exam Vital Signs Vital Signs - First Documented 08/06/19 06:55 Temp 35.7 Pulse 64 Resp 18 B/P (MAP) 174/93 (120) Pulse Ox 98 Capillary Refill : Less Than 3 Seconds Height/Weight/BMI Height: 5'1.00" Weight: 130lbs. 0oz. 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4 FL Neutrophils (%) (Auto) 32 L 42-75 % Lymphocytes (%) (Auto) 28 12-44 % Monocytes (%) (Auto) 39 H 0-12 % Eosinophils (%) (Auto) 1 0-10 % Basophils (%) (Auto) 0 0-10 % Neutrophils # (Auto) 4.9 1.8-7.8 X 10^3 Lymphocytes # (Auto) 4.3 H 1.0-4.0 X 10^3 Monocytes # (Auto) 6.1 H 0.0-1.0 X 10^3 Eosinophils # (Auto) 0.1 0.0-0.3 10^3/uL Basophils # (Auto) 0.0 0.0-0.1 10^3/uL Neutrophils % (Manual) 42 % Lymphocytes % (Manual) 28 % Monocytes % (Manual) 27 % Band Neutrophils 3 % Hypochromasia SLIGHT Poikilocytosis SLIGHT Anisocytosis MODERATE Microcytosis MARKED Target Cells SLIGHT Sodium Level 138 135-145 MMOL/L Potassium Level 4.1 3.6-5.0 MMOL/L Chloride Level 105 98-107 MMOL/L Carbon Dioxide Level 19 L 21-32 MMOL/L Anion Gap 14 5-14 MMOL/L Blood Urea Nitrogen 18 7-18 MG/DL Creatinine 0.87 0.60-1.30 MG/DL Estimat Glomerular Filtration Rate > 60 BUN/Creatinine Ratio 21 Glucose Level 106 H 70-105 MG/DL Calcium Level 9.7 8.5-10.1 MG/DL Corrected Calcium 9.7 8.5-10.1 MG/DL Total Bilirubin 0.3 0.1-1.0 MG/DL Aspartate Amino Transf (AST/SGOT) 27 5-34 U/L Alanine Aminotransferase (ALT/SGPT) 15 0-55 U/L Alkaline Phosphatase 115 40-136 U/L Troponin I < 0.028 <0.028 NG/ML C-Reactive Protein High Sensitivity 0.40 0.00-0.50 MG/DL Total Protein 8.6 H 6.4-8.2 GM/DL Albumin 4.0 3.2-4.5 GM/DL Lipase 14 8-78 U/L Urine Color YELLOW Urine Clarity SLIGHTLY CLOUDY Urine pH 8 5-9 Urine Specific [place] 1.015 L 1.016-1.022 Urine Protein 3+ H NEGATIVE Urine Glucose (UA) NEGATIVE NEGATIVE Urine Ketones NEGATIVE NEGATIVE Urine Nitrite NEGATIVE NEGATIVE Urine Bilirubin NEGATIVE NEGATIVE Urine Urobilinogen NORMAL NORMAL MG/DL Urine Leukocyte Esterase 3+ H NEGATIVE Urine RBC (Auto) 4+ H NEGATIVE Urine RBC 5-10 H /HPF Urine WBC 25-50 H /HPF Urine Squamous Epithelial Cells 2-5 /HPF Urine Crystals NONE /LPF Urine Bacteria FEW H /HPF Urine Casts NONE /LPF Urine Mucus NEGATIVE /LPF Urine Culture Indicated YES My Orders Orders - CHIO FOOTE MD Cbc With Automated Diff (08/06/19 07:05) Comprehensive Metabolic Panel (08/06/19 07:05) Hs C Reactive Protein (08/06/19 07:05) Lipase (08/06/19 07:05) Ua Culture If Indicated (08/06/19 07:05) Ed Iv/Invasive Line Start (08/06/19 07:05) Ondansetron Injection (Zofran Injectio (08/06/19 07:15) Fentanyl Injection (Sublimaze Injection (08/06/19 07:15) Manual Differential (08/06/19 07:07) Ct Abdomen/Pelvis W (08/06/19 07:47) Iohexol Injection (Omnipaque 350 Mg/Ml 1 (08/06/19 08:00) Received Contrast (Hold Metformin- Contr (08/06/19 08:00) Ns (Ivpb) (Sodium Chloride 0.9% Ivpb Bag (08/06/19 08:00) Promethazine Injection (Phenergan Injec (08/06/19 08:00) Promethazine Injection (Phenergan Injec (08/06/19 07:52) Morphine Injection (Morphine Injection (08/06/19 08:32) Urine Culture (08/06/19 08:27) Troponin I (08/06/19 08:48) Ekg Tracing (08/06/19 08:49) Monitor-Rhythm Ecg Trace Only (08/06/19 08:49) Heparin Drip 29069 Unit/500ml (Heparin (08/06/19 08:57) Heparin (Bolus Per Protocol) (Heparin (B (08/06/19 09:00) Gay Cath (08/06/19 09:22) Promethazine Injection (Phenergan Injec (08/06/19 09:45) Meropenem (Merrem 1000 Mg) (08/06/19 09:45) Medications Given in ED Current Medications Medications Dose Ordered Sig/Iris Route Start Time Stop Time Status Last Admin Dose Admin Heparin Sodium (Porcine) HEPARIN FULL PROTOC... ONCE ONCE IV 08/06/19 09:00 08/06/19 09:01 DC 08/06/19 09:06 10,000 UNIT Heparin Sodium/ Dextrose 500 ml @ 0 mls/hr Q0M ONCE IV 08/06/19 08:57 08/06/19 08:58 DC 08/06/19 09:08 24 MLS/HR Iohexol 75 ml ONCE ONCE IV 08/06/19 08:00 08/06/19 08:01 DC 08/06/19 08:15 73 ML Meropenem 1000 mg/ Sterile Water 20 ml @ 240 mls/hr ONCE ONCE IV 08/06/19 09:45 08/06/19 09:49 DC 08/06/19 10:24 240 MLS/HR Promethazine HCl 6.25 mg ONCE ONCE IVP 08/06/19 08:00 08/06/19 08:01 DC 08/06/19 08:01 6.25 MG Promethazine HCl 12.5 mg ONCE ONCE IVP 08/06/19 09:45 08/06/19 09:47 DC 08/06/19 10:00 12.5 MG Sodium Chloride 100 ml ONCE ONCE IV 08/06/19 08:00 08/06/19 08:01 DC 08/06/19 08:15 80 ML Vital Signs/I&O 08/06/19 06:55 Temp 35.7 Pulse 64 Resp 18 B/P (MAP) 174/93 (120) Pulse Ox 98 Blood Pressure Mean: 120 Progress Progress Note #1: Time: 08:19 Progress Note Symptoms were treated with fentanyl and Zofran. She vomited clear liquid despite Zofran administration. A small dose of Phenergan was added. There was a notable leukocytosis of 15,000. CT scan was ordered for further evaluation. Patient did have some hypoxia with fentanyl administration. She is stable on nasal cannula. Progress Note #2: Progress Note CT was obtained and results discussed with the radiologist. 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 This is likely the patient's source of pain. I discussed the case with Dr. Mandel who recommended consultation with vascular surgery. I then called Dr. Block at [facility]. He was willing to accept transfer of patient but asked that I clarify patient's desires regarding invasive procedures. After a lengthy conversation involving Dr. Beckford as hospitalist, the patient, and the patient's daughter, and the patient elected to forego transfer or invasive procedures. She would like to stay at [facility] until her symptoms were stabilized. In the meantime she was placed on a heparin drip with heparin bolus. Nausea was further treated with an additional dose of promethazine. Plan is to admit her until we're sure she is stable he can handle oral medications before discharging home. She also has a urinary tract infection and was started on meropenem. Meropenem was selected due to penicillin allergy. Initial ECG Impression Date: Aug 06, 2019 Initial ECG Impression Time: 08:56 Initial ECG Rate: 75 Initial ECG Rhythm: Normal Sinus Comment Sinus rhythm with chronic unchanged left bundle branch block. No ST elevation or depression to suggest ischemia. No axis deviation. Diagnostic Imaging Diagonstic Imaging: CT Plain Films/CT/US/NM/MRI: abdomen, pelvis Comments CT abdomen and pelvis viewed by me and report reviewed. See report below: NAME: BART RICHARDSON [facility] REC#: [id number] PT STATUS: REG ER : 1935 PHYSICIAN: CHIO FOOTE MD ADMIT DATE: 08/06/19/ER Signed Date of Exam: 08/06/19 CT ABDOMEN/PELVIS W PROCEDURE: CT abdomen and pelvis with contrast. TECHNIQUE: Multiple contiguous axial images were obtained through the abdomen and pelvis after administration of intravenous contrast. Auto Exposure Controls were utilized during the CT exam to meet ALARA standards for radiation dose reduction. INDICATION: Abdominal pain. Findings: Comparison is to 2018. Limited views of lower thorax reveal atelectasis in the lung bases. In addition on the uppermost slice there is an incompletely visualized thrombus in the descending thoracic aorta which is in a non-mural configuration in keeping with a thoracic aortic mobile thrombus (TAMT). Liver is normal. No focal liver lesions are seen. Gallbladder is normal. No biliary ductal dilation. Portal vein is patent pancreas is normal. 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 Both adrenal glands are normal. 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 No hydronephrosis. Urinary bladder is normal. There is diverticulosis without diverticulitis. 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 No filling defects are seen in the mesenteric vasculature on this non-angiographic examination. No dilated loops of bowel to indicate ischemia. No free fluid or air. There is a small hiatal hernia. There are no suspicious osseous lesions. There is a moderate T12 compression fracture, unchanged. There are areas of subendocardial hypoenhancement involving the septum and apex of the left ventricle concerning for an infarct. Impression: 1. 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 Consider chest imaging to exclude more proximal thrombus that would place the patient at risk for stroke. 2. 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 In addition, subendocardial hypoenhancement of the septum and apex of the left ventricle may represent acute versus chronic infarcts. 3. No current bowel ischemia seen, but the patient is a high risk for development of further embolic complications. Critical findings communicated to Dr. Foote by Dr. Pulido at 845 AM on 08/06/2019. Dictated by: Dictated on workstation # [id number] Dict: 08/06/19829 Trans: 08/06/19845 Interpreted by: HERNANDEZ PULIDO MD Electronically signed by: HERNANDEZ PULIDO MD 08/06/19 0846 Departure Communication (Admissions) Time/Spoke to Admitting Phy: 10:20 Dr. Beckford Time/Spoke to Consulting Phy: 11:00 Dr. Mandel was consulted and requested echocardiogram and high-dose statin therapy. Impression Primary Impression: thoracic aortic mobile thrombus Additional Impressions: Renal infarct Splenic infarct Nausea & vomiting Qualified Codes: R11.2 - Nausea with vomiting, unspecified Abdominal pain Qualified Codes: R10.84 - Generalized abdominal pain Urinary tract infection Qualified Codes: N39.0 - Urinary tract infection, site not specified Disposition: ADMITTED INPATIENT Condition: Improved Admissions Decision to Admit Reason: Admit from ER (General) Decision to Admit/Date: Aug 06, 2019 Time/Decision to Admit Time: 10:20 Departure-Patient Inst. Referrals: HERNANDEZ GATES MD (PCP/Family) Primary Care Physician CHIO FOOTE MD Aug 06, 2019 08:19
[2019-08-06] MEDS ORDERED: morphine INJ 10 MG/ML 1ML (SYR OR VIAL) IVP STA (08:32)
[2019-08-06 08:33] LABS: BILIRUBIN,URINE NEGATIVE (NEGATIVE); CLARITY,URINE SLIGHTLY CLOUDY; COLOR,URINE YELLOW; GLUCOSE, URINE (UA) NEGATIVE (NEGATIVE); KETONES,URINE NEGATIVE (NEGATIVE); LEUKOCYTE ESTERASE ,URINE 3+ (NEGATIVE); NITRITE,URINE NEGATIVE (NEGATIVE); PH,URINE 8 (5-9); PROTEIN,URINE 3+ (NEGATIVE); UROBILINOGEN,URINE NORMAL (NORMAL)
--- NOTE | 2019-08-06 08:40 | NUR ---
REPORT PAIN COMING BACK DR NOTIFIED.
[2019-08-06 08:41] LABS: BACTERIA,URINE FEW /HPF; WBC,URINE 25-50 /HPF
--- NOTE | 2019-08-06 08:48 | Diagnostic Imaging Report ---
PROCEDURE: CT abdomen and pelvis with contrast. TECHNIQUE: Multiple contiguous axial images were obtained through the abdomen and pelvis after administration of intravenous contrast. Auto Exposure Controls were utilized during the CT exam to meet ALARA standards for radiation dose reduction. INDICATION: Abdominal pain. Findings: Comparison is to 2018. Limited views of lower thorax reveal atelectasis in the lung bases. In addition on the uppermost slice there is an incompletely visualized thrombus in the descending thoracic aorta which is in a non-mural configuration in keeping with a thoracic aortic mobile thrombus (TAMT). Liver is normal. No focal liver lesions are seen. Gallbladder is normal. No biliary ductal dilation. Portal vein is patent pancreas is normal. 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 Both adrenal glands are normal. 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 No hydronephrosis. Urinary bladder is normal. There is diverticulosis without diverticulitis. 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 No filling defects are seen in the mesenteric vasculature on this non-angiographic examination. No dilated loops of bowel to indicate ischemia. No free fluid or air. There is a small hiatal hernia. There are no suspicious osseous lesions. There is a moderate T12 compression fracture, unchanged. There are areas of subendocardial hypoenhancement involving the septum and apex of the left ventricle concerning for an infarct. Impression: 1. 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 Consider chest imaging to exclude more proximal thrombus that would place the patient at risk for stroke. 2. 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 In addition, subendocardial hypoenhancement of the septum and apex of the left ventricle may represent acute versus chronic infarcts. 3. No current bowel ischemia seen, but the patient is a high risk for development of further embolic complications. Critical findings communicated to Dr. Foote by Dr. Beach at 845 AM on 08/06/2019. Dictated by: Dictated on workstation # [id number]
[2019-08-06] MEDS ORDERED: HEParin DRIP 25000 UNIT/500ML 500 ML IV ONE (08:57)
[2019-08-06] MEDS ORDERED: HEParin 1000 UNIT/ML (10ML VIAL) FOR BOLUS IV ONE (09:00)
--- NOTE | 2019-08-06 09:02 | NUR ---
TALKING PATIENT AND FAMILY ABOUT CT REPORT.
[2019-08-06] MEDS ORDERED: MEROPENEM 1,000 MG in WATER (STERILE) FOR INJECTION 20 ML IV ONE (09:45)
--- NOTE | 2019-08-06 11:22 | History & Physical-Hospitalist ---
History of Present Illness HPI/Chief Complaint Pt is an 84yoCF known to me from previous admission who presented to the ER with CC of severe abdominal pain. She states it started abruptly this morning and she is normally quite independent in the assisted but had to call out for help today due to the pain. She was brought here for evaluation. She had nausea on a rrival but has improved with Zofran. She underwent CT abdomen which revealed thoracic aortic mobile thrombus. Case was discussed with Vascular Surgery at [place] who recommended transfer for surgery. Patient declined surgery and elected to stay here and attempt anticoagulation. Source: patient, family Date Seen 08/06/19 Time Seen by a Provider: 10:00 Attending Physician Marlene Beckford MD PCP Hernandez Gates MD Referring Physician Date of Admission Aug 06, 2019 at 10:58 Home Medications & Allergies Home Medications Reviewed patient Home Medication Reconciliation performed by pharmacy medication reconciliations electro mechanical technician and/or nursing. Patients Allergies have been reviewed. Allergies Allergies Coded Allergies Penicillins (Verified Allergy, Severe, HIVES, 11/04/16) sulfamethoxazole (Verified Allergy, Severe, 11/04/16) SEIZURE trimethoprim (Verified Allergy, Severe, 11/04/16) SEIZURE nut - unspecified (Verified Allergy, Unknown, 08/06/19) Uncoded Allergies popcorn ( Allergy, Unknown, 08/06/19) seeds ( Allergy, Unknown, 08/06/19) Past Bhwbmna-Jfwrru-Thwtls Hx Past Med/Social Hx: Reviewed and Corrections made Patient Social History Alcohol Use: Denies Use Recreational Drug Use: No Smoking Status: Never a Smoker 2nd Hand Smoke Exposure: No Recent Foreign Travel: No Contact w/other who traveled: No Recent Hopitalizations: No Recent Infectious Disease Expo: No Immunizations Up To Date Tetanus Booster (TDap): Unknown Pediatric: Yes Seasonal Allergies Seasonal Allergies: Yes Past Medical History Surgeries: Appendectomy, Hysterectomy, Tubal Ligation Currently Using CPAP: No Currently Using BIPAP: No Cardiac: Coronary Artery Disease, Heart Attack : No Reproductive: No Sexually Transmitted Disease: No HIV/AIDS: No Female Reproductive Disorders: Denies Hysterectomy Gastrointestinal: Gastrointestinal Bleed, Diverticulosis (with history of diverticulitis), Esophagitis, Ulcer Musculoskeletal: Osteoporosis, Arthritis, Back Injury, Chronic Back Pain, Fractures, Gout Endocrine: Lupus Loss of Vision: Denies Hearing Impairment: Hard of Hearing History of Blood Disorders: No Adverse Reaction to Blood [place]: No Family History Reviewed Nursing Family Hx Asthma 19 FATHER Diabetes mellitus 19 FATHER 19 MOTHER G8 SISTER Hypertension 19 MOTHER Myocardial infarction 19 FATHER ( AT 62 FROM [place]) Neoplasm 19 MOTHER (BREAST CANCER WITH MASTECTOMY) Review of Systems Constitutional: No chills, No fever EENTM: no symptoms reported Respiratory: no symptoms reported Cardiovascular: no symptoms reported Gastrointestinal: see HPI, abdominal pain, nausea, vomiting Genitourinary: no symptoms reported Musculoskeletal: no symptoms reported Skin: no symptoms reported Psychiatric/Neurological: No Symptoms Reported Physical Exam Physical Exam Vital Signs Vital Signs - First Documented 08/06/19 08/06/19 08/06/19 06:55 16:38 20:00 Temp 35.7 Pulse 64 Resp 18 B/P (MAP) 174/93 (120) Pulse Ox 98 O2 Delivery Room Air O2 Flow Rate 5.00 Capillary Refill : Less Than 3 Seconds Height, Weight, BMI Height: 5'1.00" Weight: 130lbs. 0oz. [id number]; 22.00 BMI Method:Stated General Appearance: No Apparent Distress, WD/WN HEENT: Moist Mucous Membranes; No Scleral Icterus (L), No Scleral Icterus (R) Neck: Supple; No JVD, No Thyromegaly Respiratory: Lungs Clear, No Respiratory Distress Cardiovascular: Regular Rate, Rhythm, No Murmur, Normal Peripheral Pulses Gastrointestinal: Normal Bowel Sounds, Non Tender, Soft Extremity: Normal Capillary Refill, No Calf Tenderness, No Pedal Edema Neurologic/Psychiatric: Alert, Oriented x3, Normal Mood/Affect Skin: Normal Color, Warm/Dry Results Results/Procedures Labs Laboratory Tests 08/07/19 06:20 Patient resulted labs reviewed. Imaging: Reviewed Imaging Films, Reviewed Imaging Report Imaging Date of Exam: 08/06/19 CT ABDOMEN/PELVIS W PROCEDURE: CT abdomen and pelvis with contrast. TECHNIQUE: Multiple contiguous axial images were obtained through the abdomen and pelvis after administration of intravenous contrast. Auto Exposure Controls were utilized during the CT exam to meet ALARA standards for radiation dose reduction. INDICATION: Abdominal pain. Findings: Comparison is to 2018. Limited views of lower thorax reveal atelectasis in the lung bases. In addition on the uppermost slice there is an incompletely visualized thrombus in the descending thoracic aorta which is in a non-mural configuration in keeping with a thoracic aortic mobile thrombus (TAMT). Liver is normal. No focal liver lesions are seen. Gallbladder is normal. No biliary ductal dilation. Portal vein is patent pancreas is normal. 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 Both adrenal glands are normal. 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 No hydronephrosis. Urinary bladder is normal. There is diverticulosis without diverticulitis. 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 No filling defects are seen in the mesenteric vasculature on this non-angiographic examination. No dilated loops of bowel to indicate ischemia. No free fluid or air. There is a small hiatal hernia. There are no suspicious osseous lesions. There is a moderate T12 compression fracture, unchanged. There are areas of subendocardial hypoenhancement involving the septum and apex of the left ventricle concerning for an infarct. Impression: 1. 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 Consider chest imaging to exclude more proximal thrombus that would place the patient at risk for stroke. 2. 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 In addition, subendocardial hypoenhancement of the septum and apex of the left ventricle may represent acute versus chronic infarcts. 3. No current bowel ischemia seen, but the patient is a high risk for development of further embolic complications. Critical findings communicated to Dr. Foote by Dr. Beach at 845 AM on 08/06/2019. Assessment/Plan Admission Diagnosis Thoracic aortic mobile thrombus Admission Status: Inpatient Order (span 2 midnights) Reason for Inpatient Admission: IV heparin gtt Assessment and Plan Thoracic aortic mobile thrombus Splenic infarct Renal infarcts Continue Heparin gtt and protocol Cardiology consult, appreciate recs Discussed with patient and daughter at length about treatment options, Dr Joya discussed case with Vascular Surgery at [place] who recommended transfer if patient agreeable to intervention. Patient decline any invasive procedures. We discussed the risks of declination of further treatment that could include or debility, she states that should her symptoms worsen she would like to transition to comfortable measures only. She and daughter both expressed understanding of plan and risks. UTI Continue Rocephin Await c/s History of GI bleed occurred in 12/28 to gastric ulcers Continue PPI HTN Elevated on arrival Resume meds when home MAR available Critical Care Critically Ill Patient Diagnosis/Problems Diagnosis/Problems (1) Aortic thrombus Status: Acute (2) Splenic infarct Status: Acute (3) Urinary tract infection Status: Acute Qualifiers: Urinary tract infection type: site unspecified Hematuria presence: without hematuria Qualified Codes: N39.0 - Urinary tract infection, site not specified (4) Renal infarct Status: Acute Copy Copies To 1: HERNANDEZ GATES MD, KATELYN M MD Aug 06, 2019 11:22 am
[2019-08-06] MEDS ORDERED: HEParin 1000 UNIT/ML (10ML VIAL) FOR BOLUS IV SCH (11:45)
[2019-08-06] MEDS: D5 1/2 NS W/KCL 20 MEQ/L 1,000 ML IV SCH (12:40)
--- NOTE | 2019-08-06 12:45 | NUR ---
BART RICHARDSON admitted to room 409-1, with an admitting diagnosis of thoracic aortic mobile thrombus and abd pain , on 08/06/19 from AM ER , accompanied by staff and family .BART RICHARDSON introduced to surroundings, call light, bed controls, phone, TV, temperature control, lights, meal times, smoking policy, visitor policy, side rail policy, bathrooms and showers. Patient Rights given to patient in the handbook. BART RICHARDSON verbalizes understanding that [facility] is not responsible for the loss or damage to any personal effects or valuables that are kept in the patients posession during their hospitalization. The following Patient Care Plans and discharge were discussed with the family and patient. BART RICHARDSON verbalizes understanding of Interdisciplinary Patient Education. Patient and family were informed about the Rapid Response Team and its purpose.
[2019-08-06] MEDS ORDERED: MAGN400O7 PO (12:54)
[2019-08-06] MEDS ORDERED: ATOR20TA49 PO (12:54)
[2019-08-06] MEDS ORDERED: NITR0.4T39 SL (12:54)
[2019-08-06] MEDS ORDERED: ACET325T38 PO (12:54)
[2019-08-06] MEDS ORDERED: MELA1TAB8 PO (12:54)
[2019-08-06] MEDS ORDERED: DOCU-143 PO (12:54)
[2019-08-06] MEDS ORDERED: LISI-556 PO (12:54)
[2019-08-06] MEDS ORDERED: TRAM50TA2 PO (12:54)
[2019-08-06] MEDS ORDERED: POTA99TA21 PO (12:54)
[2019-08-06] MEDS ORDERED: METO100T12 PO (12:54)
--- NOTE | 2019-08-06 12:56 | NUR ---
UPDATED MED REC WITH ORDER SUMMARY REPORT [facility].
--- NOTE | 2019-08-06 13:20 | Consultation-Cardiology ---
HPI-Cardiology Cardiology Consultation: Date of Consultation 08/06/19 Date of Admission Attending Physician Marlene Beckford MD Admitting Physician Jefferson Boyce MD Consulting Physician Carmelita MANDEL MD HPI: Time Seen by a Provider: 12:45 Chief Complaint: Abdominal pain This is a 84-year-old lady who comes from a half-way with complain of severe abdominal pain. Abdominal pain started this morning. She lives in a half-way and is pretty independent with her daily activities. The patient denies any chest pain, shortness of breath. She complains of nausea but no vomiting. She denies any active bleeding. She had a previous admission with syncope and nonsustained in January 2019. During that admission the patient had jovanny hematochezia. Echocardiogram had shown ischemic cardiomyopathy with regional wall motion abnormalities as well as EF of 35-40 percent. Patient opted for conservative therapy. Review of Systems-Cardiology Review of Systems Constitutional: As described under HPI; No As described under HPI, No no symptoms reported, No chills, No fever, No lightheadedness Eyes: No As described under HPI, No no symptoms reported, No blindness, No blurred vision, No contact lenses, No drainage, No decreased acuity, No foreign body sensation, No pain, No vision change Ears/Nose/Throat: No As described under HPI, No no symptoms reported, No chronic hearing loss, No ear discharge, No ear pain, No nasal drainage, No ulcerations Respiratory: No no symptoms reported; As described under HPI; No As described under HPI, No cough, No orthopnea, No shortness of breath, No SOB with excertion Cardiovascular: No no symptoms reported; As described under HPI; No As described under HPI, No chest pain, No edema, No irregular heart rate, No lightheadedness, No palpitations Gastrointestinal: No no symptoms reported, No As described under HPI, No abdomen distended; abdominal pain; No blood streaked bowels, No constipation, No diarrhea, No nausea, No vomiting; nausea/vomiting/diarrhea; No stool coloration changes Genitourinary: No As described under HPI, No burning, No dysuria, No discharge, No frequency, No flank pain, No hematuria, No urgency : Yes : No Skin: No rash, No skin related problems, No ulcerations Psychiatric/Neurological: No anxiety, No depression, No seizure, No focal weakness, No syncope Hematologic: No bleeding abnormalities PZR-Kmpowf-Muhsxk Hx Patient Social History Alcohol Use: Denies Use Recreational Drug Use: No Smoking Status: Never a Smoker 2nd Hand Smoke Exposure: No Recent Foreign Travel: No Recent Infectious Disease Expo: No Hospitalization with Isolation: Denies Immunizations Up To Date Tetanus Booster (TDap): Unknown Past Medical History PMH As described under Assessment. Family Medical History Family History: Asthma 19 FATHER Diabetes mellitus 19 FATHER 19 MOTHER G8 SISTER Hypertension 19 MOTHER Myocardial infarction 19 FATHER ( AT 62 FROM [place]) Neoplasm 19 MOTHER (BREAST CANCER WITH MASTECTOMY) Allergies and Home Medications Allergies Coded Allergies: Penicillins (Verified Allergy, Severe, HIVES, 11/04/16) sulfamethoxazole (Verified Allergy, Severe, 11/04/16) SEIZURE trimethoprim (Verified Allergy, Severe, 11/04/16) SEIZURE nut - unspecified (Verified Allergy, Unknown, 08/06/19) Uncoded Allergies: popcorn (Allergy, Unknown, 08/06/19) seeds (Allergy, Unknown, 08/06/19) Home Medications Acetaminophen 325 Mg Tablet, 650 MG PO Q6H PRN for PAIN-MILD, (Reported) Atorvastatin Calcium 20 Mg Tablet, 20 MG PO HS, (Reported) Docusate Sodium 100 Mg Capsule, 100 MG PO DAILY, (Reported) Lisinopril 5 Mg Tablet, 5 MG PO DAILY, (Reported) HOLD IF SBP<100 OR DBP<60 Loperamide HCl 2 Mg Tablet, 2 MG PO Q6H PRN for DIARRHEA, (Reported) Magnesium Hydroxide 400 Mg/5 Ml Oral.susp, 30 ML PO DAILY PRN for CONSTIPATION- 7TH LINE, (Reported) Magnesium Oxide 400 Mg Tablet, 400 MG PO DAILY, (Reported) Melatonin 1 Mg Tablet, 2 MG PO HS PRN for INSOMNIA, (Reported) Metoprolol Tartrate 100 Mg Tablet, 100 MG PO DAILY, (Reported) HOLD IF PULSE <60 Nitroglycerin 0.4 Mg Tab.subl, 0.4 MG SL UD PRN for CHEST PAIN, (Reported) Ondansetron HCl 4 Mg Tab, 4 MG PO Q8H PRN for NAUSEA/VOMITING-1ST LINE, (Reported) Potassium Gluconate 99 Mg Tablet, 99 MG PO DAILY, (Reported) Ranitidine HCl 75 Mg Tablet, 75 MG PO BID, (Reported) Simethicone 80 Mg Tab.chew, 80 MG PO AC, (Reported) Simethicone 80 Mg Tab.chew, 80 MG PO DAILY PRN for GAS, (Reported) Tramadol HCl 50 Mg Tablet, 50 MG PO Q8H PRN for PAIN-MODERATE, (Reported) Patient Home Medication List Home Medication List Reviewed: Yes Physical Exam-Cardiology Physical Exam Vital Signs/I&O 08/06/19 08/06/19 06:55 11:06 Temp 35.7 Pulse 64 75 Resp 18 18 B/P (MAP) 174/93 (120) 150/89 Pulse Ox 98 96 Capillary Refill : Less Than 3 Seconds Constitutional: appears stated age, AAO x 3; No apparent distress; well- developed, well-nourished HEENT: PERRL; No discharge; hearing is well preserved, oral hygience is good; No ulceration, No xanthelasmas are seen Neck: No carotid bruit; carotid pulses are 2 + bilaterally Respiratory: chest is bilaterally symmetric, lungs clear to auscultation Cardiovascular: regular rate-rhythm, S1 and S2, systolic murmur Gastrointestinal: soft, tenderness, audible bowel sounds; No spleenomegaly Rectal: deferred Extremities: normal range of motion, non-tender, normal inspection; No clubbing, No cyanosis; no lower extremity edema bilateral; No significant edema Neurologic/Psychiatric: no motor/sensory deficits, alert, normal mood/affect, oriented x 3, power is 5/5 both on sides Skin: normal color; No rash, No ulcerations Data Review Labs Laboratory Tests 08/06/19 07:07: White Blood Count 15.5H, Red Blood Count 6.20H, Hemoglobin 11.4L, Hematocrit 38, Mean Corpuscular Volume 62L, Mean Corpuscular Hemoglobin 18L, Mean Corpuscular Hemoglobin Concent 30L, Red Cell Distribution Width 23.4H, Platelet Count 397, Mean Platelet Volume , Neutrophils (%) (Auto) 32L, Lymphocytes (%) (Auto) 28, Monocytes (%) (Auto) 39H, Eosinophils (%) (Auto) 1, Basophils (%) (Auto) 0, Neutrophils # (Auto) 4.9, Lymphocytes # (Auto) 4.3H, Monocytes # (Auto) 6.1H, Eosinophils # (Auto) 0.1, Basophils # (Auto) 0.0, Neutrophils % (Manual) 42, Lymphocytes % (Manual) 28, Monocytes % (Manual) 27, Band Neutrophils 3, Hypochromasia SLIGHT, Poikilocytosis SLIGHT, Anisocytosis MODERATE, Microcytosis MARKED, Target Cells SLIGHT, Sodium Level 138, Potassium Level 4.1, Chloride Level 105, Carbon Dioxide Level 19L, Anion Gap 14, Blood Urea Nitrogen 18, Creatinine 0.87, Estimat Glomerular Filtration Rate > 60, BUN/Creatinine Ratio 21, Glucose Level 106H, Calcium Level 9.7, Corrected Calcium 9.7, Total Bilirubin 0.3, Aspartate Amino Transf (AST/SGOT) 27, Alanine Aminotransferase (ALT/SGPT) 15, Alkaline Phosphatase 115, Troponin I < 0.028, C-Reactive Protein High Sensitivity 0.40, Total Protein 8.6H, Albumin 4.0, Lipase 14 08/06/19 08:27: Urine Color YELLOW, Urine Clarity SLIGHTLY CLOUDY, Urine pH 8, Urine Specific [place] 1.015L, Urine Protein 3+H, Urine Glucose (UA) NEGATIVE, Urine Ketones NEGATIVE, Urine Nitrite NEGATIVE, Urine Bilirubin NEGATIVE, Urine Urobilinogen NORMAL, Urine Leukocyte Esterase 3+H, Urine RBC (Auto) 4+H, Urine RBC 5-10H, Urine WBC 25-50H, Urine Squamous Epithelial Cells 2-5, Urine Crystals NONE, Urine Bacteria FEWH, Urine Casts NONE, Urine Mucus NEGATIVE, Urine Culture Indicated YES A/P-Cardiology Assessment/Admission Diagnosis Large mobile descending thoracic aorta atheroma, Splenic infarct, renal infarct, History of [place], Ischemic cardiomyopathy Plan Large mobile descending thoracic aorta atheroma, patient likely has distal embolization due to large atheromas in the descending thoracic aorta. I recommended transferred to [place] where there is Cardiovascular Surgery for further management. However the patient refused. She understands the risk which includes even . I requested the ER physician to speak to vascular surgery for recommendations for medical therapy. I have recommended IV heparin and high-dose statin therapy. Splenic infarct, renal infarct, embolic phenomenon. Defer to the primary team. History of NV, I will request contrast echocardiogram. However if cardiac source of embolization is being considered, a transesophageal echocardiogram can be performed. However we already have a source of distal embolization from large atheromas in the descending thoracic aorta. The patient has opted for conservative therapy and does not want any procedures. I will defer to the primary team. I do recommend telemetry and EKG to see if the patient has active atrial fibrillation. Ischemic cardiomyopathy, Patient is on lisinopril. Echocardiogram. On examination patient is not in congestive heart failure. Thank you for your consultation. Please call me if you have any questions. Maria Del Carmen Mandel MD, FACP, FACC, FSCAI, FHRS, CCDS Interventional Cardiology Cardiac Electrophysiology Vascular Medicine and Endovascular Interventions Carmelita MANDEL MD Aug 06, 2019 13:20
[2019-08-06] MEDS ORDERED: PANTOPRAZOLE 40 MG (PROTONIX) TAB PO NR (13:45)
[2019-08-06] MEDS ORDERED: MILK OF MAGNESIA 400 MG/5 ML 30 ML UDC PO PRN (13:45)
[2019-08-06] MEDS ORDERED: MELATONIN 2 MG PO PRN (13:45)
[2019-08-06] MEDS ORDERED: SIMETHICONE 80 MG PO PRN (13:45)
[2019-08-06] MEDS ORDERED: ACETAMINOPHEN 325 MG TABLET PO PRN (13:45)
[2019-08-06] MEDS ORDERED: SIMETHICONE 80 MG (MYLICON) CHEW PO PRN (14:15)
[2019-08-06] MEDS ORDERED: MELATONIN 3 MG TABLET PO PRN (14:15)
[2019-08-06] MEDS ORDERED: PANTOPRAZOLE 40 MG (PROTONIX) VIAL ONE (15:08)
[2019-08-06] MEDS: ONDANSETRON 4 MG/2 ML (SDV) Z0FRAN IV PRN ×2 (15:18→18:53)
--- NOTE | 2019-08-06 15:19 | NUR ---
patient nauseated given protonix iv 40mg
[2019-08-06] MEDS: morphine INJ 4 MG/ML 1 ML (VIAL/SYRINGE) IV PRN ×2 (15:51→17:40)
[2019-08-06] MEDS: SIMETHICONE 80 MG (MYLICON) CHEW PO SCH (15:59)
[2019-08-06] MEDS ORDERED: SIMETHICONE 80 MG PO SCH (16:00)
[2019-08-06] MEDS: PROMETHAZINE INJ 25 MG/ML (PHENERGAN) AMP IV PRN (16:00)
[2019-08-06 16:44] VITALS: BP 150/89
[2019-08-06] MEDS: HEParin DRIP 25000 UNIT/500ML 500 ML IV SCH (17:46)
[2019-08-06] MEDS ORDERED: fentaNYL INJECTION 100 MCG/2 ML AMP ONE (18:16)
[2019-08-06] MEDS ORDERED: PROMETHAZINE INJ 25 MG/ML (PHENERGAN) AMP IVP NR (18:30)
[2019-08-06] MEDS ORDERED: fentaNYL INJECTION 100 MCG/2 ML AMP IVP PRN (18:30)
[2019-08-06] MEDS: MEROPENEM 500 MG/SWFI 10 ML IV PUSH IV SCH ×2 (18:43)
[2019-08-06] MEDS: fentaNYL INJECTION 100 MCG/2 ML AMP IVP NR ×3 (18:44→22:03)
--- NOTE | 2019-08-06 19:48 | NUR ---
patient continued with nausea/vomit restless even after prn medication administered infective, rating pain at 10, Dr. Beckford notified orders for extra phenergan and change morphine to fentanyl 50mcg every hour , administered - attempted to place o2 on patient refused stated she did not want o2 on, while she was feeling miserable and sick patient was notified that this nurse can call doctor and she can go to a higher level of care - patient refused stated did not want further intervention, DPOA daughter at bedside agrees to comfort care as this were her moms wishes - after phenergan and fentanyl kicked in patient resting comfortable at this time - report given to on coming nurse - Iza MATTHEW
--- NOTE | 2019-08-06 19:51 | NUR ---
STRATEGY DIRECTOR WENT TO PATIENT ROOM TO ASSESS VITALS. PATIENT SaO2 WAS 75% ON RA. PATIENT WAS PUT ON 5L/NC AND SaO2 DID COME UP TO 80%. HEART RATE 130s-140s. DR SINGH NOTIFIED OF VITALS AND MADE AWARE THAT PATIENT IS A DNR AND FAMILY (AKSHATGISELA GRANDE) IS REQUESTING COMFORT MEASURES. ORDER RECEIVED FOR COMFORT CARE, CONTINUE HEPARIN DRIP.
[2019-08-06 20:52] VITALS: BP 131/76
[2019-08-06] MEDS ORDERED: NON-FORMULARY MEDICATION 1 EA EA (Atorvastatin Calcium (Lipitor) 20 MG) PO SCH (21:00)
[2019-08-06] MEDS ORDERED: fentaNYL PATCH 50 MCG (DURAGESIC) TD SCH (21:15)
[2019-08-06] MEDS: LORazepam INJ 2 MG/ML (ATIVAN) VIAL IVP PRN (21:55)
--- NOTE | 2019-08-07 00:15 | NUR ---
PHYSICIAN NOTIFIED OF CRITICAL PTT AND NEW RATE PER HEPARIN PROTOCOL. NNO, CONTINUE TO MONITOR.
[2019-08-07] MEDS: HEParin DRIP 25000 UNIT/500ML 500 ML IV SCH ×2 (00:19→07:03)
[2019-08-07] MEDS: D5 1/2 NS W/KCL 20 MEQ/L 1,000 ML IV SCH (00:20)
[2019-08-07] MEDS: MEROPENEM 500 MG/SWFI 10 ML IV PUSH IV SCH ×2 (01:53)
[2019-08-07] MEDS: SIMETHICONE 80 MG (MYLICON) CHEW PO SCH ×3 (05:36→16:00)
[2019-08-07 06:28] LABS: HEMATOCRIT 39 % (35-52); HEMOGLOBIN 11.7 G/DL (11.5-16.0); MEAN CORPUSCULAR HEMOGLOBIN 19 PG (25-34); MEAN CORPUSCULAR HGB CONC 30 G/DL (32-36); MEAN CORPUSCULAR VOLUME 62 FL (80-99); PLATELET COUNT 464 10^3/uL (130-400); RED CELL DISTRIBUTION WIDTH 24.2 % (10.0-14.5)
[2019-08-07 06:43] LABS: WHITE BLOOD COUNT 75.7 10^3/uL (4.3-11.0)
[2019-08-07 06:53] LABS: ANISOCYTOSIS MODERATE; BAND NEUTROPHILS 3 %; BASOPHILS % (MANUAL) 0 %; EOSINOPHILS % (MANUAL) 0 %; HYPOCHROMASIA MODERATE; LYMPHOCYTES % (MANUAL) 2 %; MONOCYTES % (MANUAL) 26 %; NEUTROPHILS % (MANUAL) 69 %; POIKILOCYTOSIS SLIGHT; POLYCHROMASIA SLIGHT; TARGET CELLS SLIGHT
[2019-08-07 07:00] LABS: CALCIUM 8.6 MG/DL (8.5-10.1); CREATININE SERUM 1.34 MG/DL (0.60-1.30); POTASSIUM 4.4 MMOL/L (3.6-5.0)
[2019-08-07] MEDS ORDERED: PANTOPRAZOLE 40 MG (PROTONIX) TAB PO SCH (07:00)
--- NOTE | 2019-08-07 07:05 | NUR ---
PHYSICIAN NOTIFIED OF CRITICAL LAB RESULTS. NNO.
[2019-08-07] MEDS ORDERED: MAGNESIUM OXIDE (MAG-OX)400 MG TAB PO SCH (08:00)
[2019-08-07] MEDS ORDERED: lisINopril 5 MG (PRINIVIL) TABLET PO SCH (09:00)
[2019-08-07] MEDS ORDERED: FAMOTIDINE 20MG/2ML IV (PEPCID) IV SCH (09:00)
[2019-08-07] MEDS ORDERED: NON-FORMULARY MEDICATION 1 EA EA (Metoprolol Tartrate 100 MG) PO SCH (09:00)
[2019-08-07] MEDS ORDERED: meTOprolol TARTRATE 50 MG (LOPRESSOR) TAB PO SCH (09:00)
[2019-08-07] MEDS ORDERED: NON-FORMULARY MEDICATION 1 EA EA (Magnesium Oxide (Magnesium) 400 MG) PO SCH (09:00)
[2019-08-07] MEDS: PROMETHAZINE INJ 25 MG/ML (PHENERGAN) AMP IV PRN (09:40)
[2019-08-07] MEDS: fentaNYL INJECTION 100 MCG/2 ML AMP IVP PRN ×4 (09:41→23:13)
--- NOTE | 2019-08-07 10:37 | NUR ---
PALLIATIVE CARE RN in to see patient. She is resting in bed. Family at bedside and reports that she is finally resting. Patient is CCMO at this time. No reported needs at this time
[2019-08-07] MEDS: LORazepam INJ 2 MG/ML (ATIVAN) VIAL IVP PRN ×3 (11:08→23:17)
--- NOTE | 2019-08-07 13:25 | NUR ---
Pastoral care visit.
--- NOTE | 2019-08-07 13:26 | Cardiology Progress Note ---
Cardiology SOAP Progress Note Subjective: okay abdominal pain control with fentanyl. Objective: I&O/Vital Signs 08/07/19 08/07/19 08/07/19 08/07/19 08:00 08:00 08:14 11:40 Temp 36.2 36.7 Pulse Ox 81 O2 Delivery Nasal Cannula Nasal Cannula Nasal Cannula O2 Flow Rate 5.00 5.00 5.00 08/07/19 00:00 Intake Total 125 ml Output Total 450 ml Balance -325 ml Weight (Pounds): 130 Weight (Ounces): 0 Weight (Calculated Kilograms): [id number] Constitutional: appears stated age, AAO x 3; No apparent distress; well- developed, well-nourished Respiratory: chest is bilaterally symmetric, lungs clear to auscultation Cardiovascular: regular rate-rhythm, S1 and S2, systolic murmur Gastrointestional: soft, tenderness, audible bowel sounds; No spleenomegaly Extremities: normal range of motion, non-tender, normal inspection; No clubbing, No cyanosis; no lower extremity edema bilateral; No significant edema Neurologic/Psychiatric: no motor/sensory deficits, alert, normal mood/affect, oriented x 3, power is 5/5 both on sides Skin: normal color; No rash, No ulcerations Results/Procedures: Labs Laboratory Tests 08/06/19 15:52: Activated Partial Thromboplast Time > 200*H 08/06/19 23:40: Activated Partial Thromboplast Time 154*H 08/07/19 06:20: Activated Partial Thromboplast Time 140*H, White Blood Count 75.7*H, Red Blood Count 6.26H, Hemoglobin 11.7, Hematocrit 39, Mean Corpuscular Volume 62L, Mean Corpuscular Hemoglobin 19L, Mean Corpuscular Hemoglobin Concent 30L, Red Cell Distribution Width 24.2H, Platelet Count 464H, Mean Platelet Volume , Neutrophils (%) (Auto) , Lymphocytes (%) (Auto) , Monocytes (%) (Auto) , Eosinophils (%) (Auto) , Basophils (%) (Auto) , Neutrophils # (Auto) , Lymphocytes # (Auto) , Monocytes # (Auto) , Eosinophils # (Auto) , Basophils # (Auto) , Neutrophils % (Manual) 69, Lymphocytes % (Manual) 2, Monocytes % (Manual) 26, Eosinophils % (Manual) 0, Basophils % (Manual) 0, Band Neutrophils 3, Polychromasia SLIGHT, Hypochromasia MODERATE, Poikilocytosis SLIGHT, Anisocytosis MODERATE, Target Cells SLIGHT, Sodium Level 135, Potassium Level 4.4, Chloride Level 104, Carbon Dioxide Level 17L, Anion Gap 14, Blood Urea Nitrogen 22H, Creatinine 1.34H, Estimat Glomerular Filtration Rate 38, BUN/Creatinine Ratio 16, Glucose Level 188H, Calcium Level 8.6 Microbiology 08/06/19 Urine Culture - Preliminary, Resulted Mixed Bacterial Kathryn Strep Species, Beta Hemolytic A/P: Assessment/Dx: Large mobile descending thoracic aorta atheroma, Splenic infarct, renal infarct, History of [place], Ischemic cardiomyopathy Plan: Large mobile descending thoracic aorta atheroma, patient likely has distal embolization due to large atheromas in the descending thoracic aorta. I recommended transferred to [place] where there is Cardiovascular Surgery for further management. However the patient refused. She understands the risk which includes even . I requested the ER physician to speak to vascular surgery for recommendations for medical therapy. I have recommended IV heparin and high-dose statin therapy. Splenic infarct, renal infarct, embolic phenomenon. Defer to the primary team. History of [place], I will request contrast echocardiogram. However if cardiac source of embolization is being considered, a transesophageal echocardiogram can be performed. However we already have a source of distal embolization from large atheromas in the descending thoracic aorta. The patient has opted for conservative therapy and does not want any procedures. I will defer to the primary team. I do recommend telemetry and EKG to see if the patient has active atrial fibrillation. Ischemic cardiomyopathy, Patient is on lisinopril. Echocardiogram. On examination patient is not in congestive heart failure. I'm told by the daughter that the patient is deciding for comfort care. She is only on fentanyl. IV heparin has been discontinued. Thank you for your consultation. Please call me if you have any questions. Maria Del Carmen Mandel MD, FACP, FACC, FSCAI, FHRS, CCDS Interventional Cardiology Cardiac Electrophysiology Vascular Medicine and Endovascular Interventions Clinical Quality Measures Type of Care: Type of Care: Comfort Measures Carmelita MANDEL MD Aug 07, 2019 13:25
--- NOTE | 2019-08-07 13:40 | Progress Note - Hospitalist ---
Subjective HPI/CC On Admission Date Seen by Provider: Aug 07, 2019 Time Seen by Provider: 13:35 Pt is an 84yoCF known to me from previous admission who presented to the ER with CC of severe abdominal pain. She states it started abruptly this morning and she is normally quite independent in the custodial but had to call out for help today due to the pain. She was brought here for evaluation. She had nausea on arrival but has improved with Zofran. She underwent CT abdomen which revealed thoracic aortic mobile thrombus. Case was discussed with Vascular Surgery at [facility] who recommended transfer for surgery. Patient declined surgery and elected to stay here and attempt anticoagulation. Subjective/Events-last exam Pt is sleeping soundly. Awakens briefly to touch but otherwise appears comfortable. Discussed with daughter about events overnight. She states pain increased significantly last night. Morphine made her nauseated as well. Was switched to fentanyl and a fentanyl patch which has helped significantly. They have elected to transition to comfort measures only and would like the heparin gtt turned off. Objective Exam Vital Signs Vital Signs Date Time Temp Pulse Resp B/P (MAP) Pulse Ox O2 Delivery O2 Flow Rate FiO2 08/07/19 10:15 36.7 08/07/19 08:14 Nasal Cannula 5.00 08/07/19 08:00 81 08/06/19 20:52 131 16 131/76 Capillary Refill : Less Than 3 Seconds General Appearance: No Apparent Distress, Chronically ill Respiratory: Lungs Clear, No Respiratory Distress Cardiovascular: Regular Rate, Rhythm, No Murmur Gastrointestinal: Normal Bowel Sounds, Soft Neurologic/Psychiatric: Alert Results/Procedures Lab Laboratory Tests 08/07/19 06:20 Patient resulted labs reviewed. Imaging: Reviewed Imaging Films, Reviewed Imaging Report Assessment/Plan Assessment and Plan Assess & Plan/Chief Complaint Thoracic aortic mobile thrombus Splenic infarct Renal infarcts Given worsening pain overnight family and patient have elected comfort measures only Comfort care orderset in place DC heparin gtt Palliative care consulted, appreciate recs Will monitor over the next 24 hours, if not actively dying could possible DC back to [place] Critical Care Critically Ill Patient Diagnosis/Problems Diagnosis/Problems (1) Aortic thrombus Status: Acute (2) Splenic infarct Status: Acute (3) Urinary tract infection Status: Acute Qualifiers: Urinary tract infection type: site unspecified Hematuria presence: without hematuria Qualified Codes: N39.0 - Urinary tract infection, site not specified (4) Renal infarct Status: Acute Clinical Quality Measures DVT/VTE Risk/Contraindication: Risk Factor Score Per Nursin RFS Level Per Nursing on Admit: 4+=Very High MEAGAN PATRICK MD Aug 07, 2019 1:40 pm
[2019-08-08] MEDS: fentaNYL INJECTION 100 MCG/2 ML AMP IVP PRN ×12 (01:10→23:15)
[2019-08-08] MEDS: LORazepam INJ 2 MG/ML (ATIVAN) VIAL IVP PRN ×4 (03:19→19:49)
[2019-08-08] MEDS: SIMETHICONE 80 MG (MYLICON) CHEW PO SCH ×3 (03:53→15:10)
[2019-08-08] MEDS ORDERED: fentaNYL PATCH 75 MCG (DURAGESIC) TD SCH (09:45)
--- NOTE | 2019-08-08 09:46 | Progress Note - Hospitalist ---
Subjective HPI/CC On Admission Date Seen by Provider: Aug 08, 2019 Time Seen by Provider: 09:46 Pt is an 84yoCF known to me from previous admission who presented to the ER with CC of severe abdominal pain. She states it started abruptly this morning and she is normally quite independent in the care home but had to call out for help today due to the pain. She was brought here for evaluation. She had nausea on arrival but has improved with Zofran. She underwent CT abdomen which revealed thoracic aortic mobile thrombus. Case was discussed with Vascular Surgery at [facility] who recommended transfer for surgery. Patient declined surgery and elected to stay here and attempt anticoagulation. Subjective/Events-last exam Pt is sleeping comfortably. Daughter at bedside states rests comfortably at times but had a rough night with pain. Discussed plan to keep in hospital to optimize pain regimen so that when she does discharge she will not have a pain crisis. Objective Exam Vital Signs Vital Signs Date Time Temp Pulse Resp B/P (MAP) Pulse Ox O2 Delivery O2 Flow Rate FiO2 08/08/19 08:00 92 Nasal Cannula 5.00 08/07/19 16:25 36.7 08/06/19 20:52 131 16 131/76 Capillary Refill : Less Than 3 Seconds General Appearance: No Apparent Distress, WD/WN Respiratory: Lungs Clear, No Respiratory Distress Cardiovascular: Regular Rate, Rhythm, No Murmur Neurologic/Psychiatric: Other (arouses to touch, opens eyes) Results/Procedures Lab Patient resulted labs reviewed. Imaging: Reviewed Imaging Films, Reviewed Imaging Report Assessment/Plan Assessment and Plan Assess & Plan/Chief Complaint Thoracic aortic mobile thrombus Splenic infarct Renal infarcts Continue comfort measures only Comfort care orderset in place Palliative care consulted, appreciate recs Increase fentanyl patch, prn fentanyl still available Discussed with NH, they could accept back over the weekend should pain improve and patient stable for transfer Discussed with Dr Mandel, if become more alert and can tolerate PO may try Eliquis to help with clot burden that may alleviate pain Critical Care Critically Ill Patient Diagnosis/Problems Diagnosis/Problems (1) Aortic thrombus Status: Acute (2) Splenic infarct Status: Acute (3) Urinary tract infection Status: Acute Qualifiers: Urinary tract infection type: site unspecified Hematuria presence: without hematuria Qualified Codes: N39.0 - Urinary tract infection, site not specified (4) Renal infarct Status: Acute Clinical Quality Measures DVT/VTE Risk/Contraindication: Risk Factor Score Per Nursin RFS Level Per Nursing on Admit: 4+=Very High MEAGAN PATRICK MD Aug 08, 2019 9:46 am
--- NOTE | 2019-08-08 13:11 | Cardiology Progress Note ---
Cardiology SOAP Progress Note Subjective: not communicating. Objective: I&O/Vital Signs 08/09/19 00:46 Temp 36.7 08/09/19 00:00 Intake Total 0 ml Output Total 300 ml Balance -300 ml Weight (Pounds): 130 Weight (Ounces): 0 Weight (Calculated Kilograms): 58.597263 Constitutional: appears stated age; No apparent distress; well-developed, well- nourished Respiratory: chest is bilaterally symmetric, lungs clear to auscultation Cardiovascular: regular rate-rhythm, S1 and S2, systolic murmur Gastrointestional: soft, tenderness, audible bowel sounds; No spleenomegaly Extremities: normal range of motion, non-tender, normal inspection; No clubbing, No cyanosis; no lower extremity edema bilateral; No significant edema Neurologic/Psychiatric: no motor/sensory deficits, alert, normal mood/affect, oriented x 3, power is 5/5 both on sides Skin: normal color; No rash, No ulcerations Results/Procedures: Labs Microbiology 08/06/19 Urine Culture - Final, Complete Mixed Bacterial Kathryn Strep agalactiae Group B A/P: Assessment/Dx: Large mobile descending thoracic aorta atheroma, Splenic infarct, renal infarct, History of AL, Ischemic cardiomyopathy Plan: Large mobile descending thoracic aorta atheroma, patient likely has distal em bolization due to large atheromas in the descending thoracic aorta. I recommended transferred to [place] where there is Cardiovascular Surgery for further management. However the patient refused. She understands the risk which includes even . I requested the ER physician to speak to vascular surgery for recommendations for medical therapy. I have recommended IV heparin and high-dose statin therapy. Splenic infarct, renal infarct, embolic phenomenon. Defer to the primary team. History of AL, I will request contrast echocardiogram. However if cardiac source of embolization is being considered, a transesophageal echocardiogram can be performed. However we already have a source of distal embolization from large atheromas in the descending thoracic aorta. The patient has opted for conservative therapy and does not want any procedures. I will defer to the primary team. I do recommend telemetry and EKG to see if the patient has active atrial fibrillation. Ischemic cardiomyopathy, Patient is on lisinopril. Echocardiogram. On examination patient is not in congestive heart failure. I'm told by the daughter that the patient is deciding for comfort care. She is only on fentanyl. IV heparin has been discontinued. poor prognosis. Thank you for your consultation. Please call me if you have any questions. Maria Del Carmen Mandel MD, FACP, FACC, FSCAI, FHRS, CCDS Interventional Cardiology Cardiac Electrophysiology Vascular Medicine and Endovascular Interventions Clinical Quality Measures Type of Care: Type of Care: Comfort Measures Carmelita MANDEL MD Aug 08, 2019 13:11
--- NOTE | 2019-08-08 14:30 | NUR ---
Anticipate discharge over the weekend. Barbara will need nonemergent ambulance transport back to [facility]. The nonemergent ambulance transport form has been filled out and put on the patients chart with instructions for nursing to finalize if Barbara gets discharged over the weekend. I contacted [facility] et they are ready for Barbara to come back to them whenever she is discharged. They are aware that the family has elected [facility] as their choice hospice at discharge. [facility] has been contacted et they indicate that they will come to the hospital et visit with the family et fill out paperwork. [facility] is aware that she is on oxygen et will need that at discharge. No further interventions noted at this time. Barbara has been restless off et on today. increased her fentanyl patch to 75mcg et continued her bolus breakthrough pain medication as well. She has been receiving this et appears to be more comfortable. The times that I have been with the patient today she is resting in bed with her eyes closed, respirations shallow et unlabored. She will respond to voice et grimaces with any position changes.
[2019-08-09] MEDS: LORazepam INJ 2 MG/ML (ATIVAN) VIAL IVP PRN (01:13)
[2019-08-09] MEDS: fentaNYL INJECTION 100 MCG/2 ML AMP IVP PRN (04:46)
--- NOTE | 2019-08-09 06:11 | Discharge Summary ---
Discharge Summary Date of Admission Aug 06, 2019 at 10:58 Date of Discharge Discharge Date: Aug 09, 2019 Admission Diagnosis Thoracic aortic mobile thrombus Comfort Measures/ End of Life Care: Comfort Measures Date of : Aug 09, 2019 Time of : 05:35 Pt was admitted to the hospital for thoracic aortic mobile thrombus with griffin bsequent renal and splenic infarcts. She was started on a heparin gtt for treatment but quickly elected comfort measures only as symptoms were worsening and she had declined any surgical intervention. She was treated with fentanyl for pain control as she did not tolerate morphine well and ativan for agitation. She passed peacefully with her family at bedside on 08/09/19 at 0535. Discharge Diagnosis Thoracic aortic mobile thrombus Splenic infarct Renal infarcts (1) Aortic thrombus Status: Acute (2) Splenic infarct Status: Acute (3) Urinary tract infection Status: Acute Qualifiers: Qualified Codes: N39.0 - Urinary tract infection, site not specified (4) Renal infarct Status: Acute MEAGAN PATRICK MD Aug 09, 2019 06:11
--- NOTE | 2019-08-09 06:30 | NUR ---
PT FAMILY NOTIFIED THIS NURSE THAT PT HAD PASSED AT 0535. THIS NURSE AND ANOTHER RN LISTENED TO PT HEART AND CONFIRMED PT HAS PASSED. PT DAUGHTERS PRESENT IN ROOM. THIS NURSE [place] DR PATRICK [place] [id number]. [facility]. AND CONSULTING PHYSICIAN . PT FAMILY REQUESTED [facility], HOME CALLED AT [id number].
[2019-08-11] MEDS ORDERED: FENTANYL PATCH REMOVAL TP SCH (09:44)
== END 2019-08-09 07:42 | disposition expired | DRG 300 ==
LOC: EDUNIT# 06:55 → ER 06:57 → 4TH 10:58
PROVIDERS: ADMIT Family Medicine; ATTEND Family Medicine
DX: I74.11 Embolism and thrombosis of thoracic aorta (principal); I74.8 Embolism and thrombosis of other arteries; N28.0 Ischemia and infarction of kidney; N39.0 Urinary tract infection, site not specified; I70.0 Atherosclerosis of aorta; I25.5 Ischemic cardiomyopathy; I10 Essential (primary) hypertension; Z66 Do not resuscitate; Z51.5 Encounter for palliative care; B95.1 Streptococcus, group B, as the cause of diseases classified elsewhere; I25.10 Atherosclerotic heart disease of native coronary artery without angina pectoris; I25.2 Old myocardial infarction; J30.2 Other seasonal allergic rhinitis; M81.0 Age-related osteoporosis without current pathological fracture; M19.91 Primary osteoarthritis, unspecified site; M54.9 Dorsalgia, unspecified; M10.9 Gout, unspecified; Z88.0 Allergy status to penicillin; Z87.11 Personal history of peptic ulcer disease
CPT/HCPCS: 36415; 51702; 74177; 80048; 80053; 81000; 83690; 84484; 85007; 85027; 85730; 86141; 87077; 87088; 93005; 93041; 93306; 96365; 96367; 96375; 96376